=== PATIENT | male | born 1960 | race Caucasian/White ===

== ENCOUNTER → 2018-06-13 12:19 | Outpatient (CLI) | payer OTHER, SELFPAY ==
[2018-06-13 13:33] LABS: Absolute Lymphocyte Count 2.73 X10^3/ul (0.83-4.51); Absolute Neutrophil Count 3.6 X10^3/uL (2.0-7.7); Basophil# 0.02 X10^3/uL; Basophil% 0.3 % (0-1); Eosinophil# 0.26 X10^3/uL; Eosinophils% 3.7 % (0-5); Hematocrit 43.1 % (40-54); Hemoglobin 14.8 g/dl (13.0-16.5); Lymphocyte # 2.73 X10^3/ul (4.0); Lymphocyte % 38.3 % (19-41); Mean Corp Hgb Conc 34.3 g/gl (32-36); Mean Corpuscular Hgb 32.8 pg (27.0-32.0); Mean Corpuscular Volume 95.6 fL (80-94); Mean Platelet Vol. 8.4 fl (6.2-12.0); Monocyte# 0.47 X10^3/uL; Monocyte% 6.6 % (0-10); Neutrophil # 3.63 X10^3/uL (2.7-7.7); POSITIVE COUNT NO; POSITIVE DIFFERENTIAL NO; POSITIVE MORPHOLOGY NO; Platelet Count 398 K/mm3 (150-450); RBC Distribution Width CV 14.3 % (11.6-14.6); RBC Distribution Width SD 50.5 fl (35.1-43.9); Red Blood Count 4.51 M/mm3 (4.6-6.2); White Blood Count 7.1 K/mm3 (4.4-11.0)
[2018-06-13 13:58] LABS: ALB/GLOB Ratio 1.2 RATIO (0.9-2.4); AST(SGOT) 15 U/L (15-37); Alanine Aminotransfer ALT/SGPT 28 U/L (16-61); Albumin, Serum 3.8 g/dL (3.2-5.0); Alkaline Phosphatase 54 U/L (45-117); Anion Gap 9 (5-15); BUN 14 mg/dL (7-18); BUN/Creat Ratio 16.8 RATIO (10-20); Calcium,Total 8.4 mg/dL (8.5-10.1); Chloride 107 mmol/L (98-107); Cholesterol 215 mg/dL (200); Creatinine, Serum 0.84 mg/dL (0.70-1.30); EST Glomerular Filtration Rate 100 mL/min (>60); Est Glom Filt Rate - Afr Amer 121 mL/min (>60); Globulin 3.3 g/dL (2.2-4.2); Glucose 90 mg/dL (74-106); High Density Lipoprotein 67 mg/dL; PSA,Total - Annual Screen 2.04 ng/mL (0.00-4.00); Potassium 3.9 mmol/L (3.5-5.1); Protein, Total 7.1 g/dL (6.4-8.2); Sodium Level 141 mmol/L (136-145); Triglycerides 76 mg/dL; Very Low Density Lipoprotein 15 mg/dL (5-40)
== END ==
PROVIDERS: Family Provider Family Medicine; PCP Family Medicine; Visit Provider Family Medicine
DX: E78.5 Hyperlipidemia, unspecified (principal); Z12.5 Encounter for screening for malignant neoplasm of prostate; Z72.0 Tobacco use; Z12.2 Encounter for screening for malignant neoplasm of respiratory organs
CPT/HCPCS: 36415; 80053; 80061; 84153; 85025; G0297; G0103

== ENCOUNTER 2018-08-08 06:52 | Day surgery (SDC) | payer OTHER, SELFPAY ==
--- NOTE | 2018-08-08 | COLBX_PTH ---
PATIENT: CARLOS MOULTON LOC: EN U#:[id number] AGE/SX: 57/M ROOM: RE08/08/[address]: Dr. Juliet Camacho MD : 1960 BED: DIS: 08/08/2018 SPEC #: [id number] RECD: 08/08/18 13:26 STATUS: CARLO UMA #: [id number] CHIARA: 08/08/18 00:[address]: Juliet Camacho DEPT: SURGICAL PATHOLOGY RECD BY: Kavon Gifofrd ENTERED: 08/08/18 13:26 SP TYPE: COLON BX OTHR DR: Dr. Javed Gao DO Tissues: A - Cecum, NOS B - Ileum, NOS C - Rectum, NOS D - Rectum, NOS Procedures: Surgery Specimen Level IV HEADER OPERATION: Colonoscopy (MAC) PRE-OP DIAGNOSIS: Screening TISSUE SUBMITTED: A - Cecal polyp biopsy, B - Polyp near ileocecal valve biopsy, C - Proximal rectal polyp, D - Rectal polyp biopsy MICROSCOPIC DIAGNOSIS A. Cecal polyp, biopsy: Tubular adenoma. B. Polyp near ileocecal valve, biopsy: Fragments of tubular adenoma. C. Proximal rectal polyp, biopsy: Fragments of tubular adenoma. D. Rectal polyp, biopsy: A fragment of colonic mucosa with focal minimal hyperplastic changes. EDY:loreto 08/09/18 MICROSCOPIC DESCRIPTION Slides are reviewed. GROSS DESCRIPTION A - Received in fixative is one container labeled with the patient's name and designated cecal polyp biopsy. The specimen consists of one irregular fragment of light de la cruz soft tissue that measures 0.3 x 0.3 x 0.1 cm. The specimen is totally submitted in one cassette. B - Received in fixative is one container labeled with the patient's name and designated polyp near ileocecal valve biopsy. The specimen consists of multiple irregular fragments of light de la cruz soft tissue that in aggregate measure 2 x 1 x 0.1 cm. The specimen is totally submitted in one cassette. C - Received in fixative is one container labeled with the patient's name and designated proximal rectal polyp. The specimen consists of two pieces of de la cruz-pink polyp each measuring 0.4 x 0.4 x 0.3 cm. The specimen is totally submitted in one cassette. D - Received in fixative is one container labeled with the patient's name and designated rectal polyp biopsy. The specimen consists of one irregular fragment of light de la cruz soft tissue that measures 0.5 x 0.3 x 0.1 cm. The specimen is totally submitted in one cassette. / EDY:loreto 08/08/18 TC:1 CPT: 13481 x4
[2018-08-08 07:17] VITALS: BP 129/79; PULSE 73; RESP 16; TEMP 37.6; O2SAT 97; BMI 21.5
--- NOTE | 2018-08-08 07:38 | H&P.OPEN ---
Past Medical/Surgical History - Planned Operation Planned Operative Procedure/s: Screening colonoscopy Date of Operative Procedure: 08/08/18 Permit Signed: No S.O.S: No Is This Patient Having a Total Joint: No - Previous Hospitalizations/Surgeries HX Hospitalizations: Yes HX of Surgeries: colonoscopy. hernia repair as a child Any Problems With Anesthesia: No You/Your Family Experience Fever (Hyperthermia) With Anes: No Cholinesterase deficiency: No - Cardiovascular Hx Chest Pain within Last 2 months: No Hx of Irregular Heartbeat and/or Afib: No Hx Heart Attack: No Hx Congestive Heart Failure: No Hx Rheumatic Fever: No Hx Hypertension: No Hx Internal Defibrillator: No Hx Pacemaker: No Hx Cardiac Catheterization: No Hx Cardiac Surgery/Stents/Etc.: No Hx Stress Test: No HX Edema: No Hx Pain in Legs when Walking/Leg Cramps: No - Respiratory Chronic Cough: No HX of Shortness of Breath: No Hoarseness: No Hx Chronic Obstructive Pulmonary Disease (COPD): No Hx Asthma: No Hx Emphysema: No Hx Sleep Apnea: No Hx Oxygen Use at Home: No Hx Respiratory Tract Infection/Cold (presently): No Do You Snore Loudly (louder than talking or can be heard): Yes Do You Often Feel Tired/ Fatigued/ Sleepy Dring Daytime?: No Has Anyone Observed You Stop Breathing During Sleep?: No Result (for STOP score): Negative Hx Smoking: Yes - 1ppd x 38yrs Smoking Status: Current every day smoker - Gastrointestinal Hx Gastroesophageal Reflux: No Hx Gastrointestinal Disorders: No Hx Gastrointestinal Bleed: No Hx Ulcer: No Hx Hiatal Hernia: No Difficulty Chewing/Swallowing: No Recent Onset of Swallowing Problems: No Special diet followed at home: Yes - low salt/ no bread Hx Unplanned Weight Loss of 20#: No HX Unplanned Weight Gain of 20#: No - Neurological Hx Seizures: No HX Syncope/Blackout Spells/Unconsciousness: No Hx CVA/Stroke: No Hx Transient Ischemic Attacks (TIA): No Hx Multiple Sclerosis: No Hx Parkinson's Disease: No Hx Head/Neck Injury: No Hx Headaches: No Hx Back Injury/Pain: Yes Recent Onset of Speech Difficulty: No Restless Legs: No Does patient have nerve stimulator: Yes - TENS - Blood Disorder Hx Leukemia: No Bleeding Tendencies: Yes - on aspirin Hx Deep Vein Thrombosis: No Hx High Cholesterol: Yes - is normal now Blood Transmitted Disease: No Hx Hepatitis: No Hx Cirrhosis: No Hx Anemia: No Hx Blood Disorders: No - Genitourinary Hx Renal Disease: No - Musculoskeletal Hx Arthritis: No Hx Rheumatoid Arthritis: No Hx Gout: No Recent Onset of an Orthopedic Problem: No - Endocrine Hx Diabetes: No Thyroid Disease: No Hx Steroid Therapy: No - Psycho/Social Hx Substance Use: No Hx Alcohol Use: No Hx Anxiety: Yes Hx Depression: No Mental Illness: No Hx Dementia: No - Miscellaneous Hx Cancer: No Recent Exposure to Contagious Disease: No Active MRSA: No Hx of C-Diff: No Any Loose Teeth: No - dentures Additional information pertinent to anesthesia:: none Allergies No Known Allergies Allergy (Verified 08/03/18 16:26) - Discharge Is Pt Admitted From a Assisted, or a Halfway: No Who Depends On You At Home: lives with Who Could Help: Special Equipment Used at Home: none After D/C, Where Do you Plan to Go: Return Home - Physical Exam General: Alert, Oriented x3, Cooperative, No apparent distress HEENT: Atraumatic Lungs: Normal air movement Cardiovascular: Regular rate, Regular Rhythm Abdomen: Soft, Non Tender - No peritoneal signs, Non-Distended Extremities: No clubbing, No cyanosis, No edema Neurological: Cranial nerves II-XII grossly intact Psych/Mental Status: Normal Affect Vital Signs Temp Pulse Resp BP Pulse Ox 99.6 F H 73 16 129/79 H 97 08/08/18 07:17 08/08/18 07:17 08/08/18 07:17 08/08/18 07:17 08/08/18 07:17 Oxygen Delivery Method Room Air Weight: 150 lb 5.684 oz Body Mass Index (BMI) 21.5 Assessment/Plan 57-year-old male here for a screening colonoscopy, denies family history of colon cancer, denies any chronic abdominal pain, did have a previous colonoscopy about 22 years ago due to abdominal pain which turned out to be ulcers, daily bowel movements denies blood Surgery Risks - Colonoscopy I discussed with the patient the risks of the procedure: Yes Risks Include but are not Limited To: Risks include but are not limited to: Bleeding, perforation requiring further surgery, inability to complete colonoscopy requiring barium enema. Patient no further questions.
[2018-08-08 08:45] VITALS: BP 112/73; BP 129/79; PULSE 52; RESP 16; TEMP 36.3; O2SAT 100
[2018-08-08 08:50] VITALS: BP 128/80; BP 129/79; PULSE 54; RESP 16
--- NOTE | 2018-08-08 08:52 | OP.ENDO_ITS ---
Patient Name: Walt Robles Procedure Date: 08/08/2018 7:46 AM Date of : 1960 Age: 57 Procedure: Colonoscopy Indications: Screening for colorectal malignant neoplasm Providers: Juliet Camacho MD Medicines: Monitored Anesthesia Care Patient Profile: Last Colonoscopy: more than 10 years ago. Complications: No immediate complications. Procedure: Pre-Anesthesia Assessment: - Prior to the procedure, a History and Physical was performed, and patient medications and allergies were reviewed. The patient's tolerance of previous anesthesia was also reviewed. The risks and benefits of the procedure and the sedation options and risks were discussed with the patient. All questions were answered, and informed consent was obtained. Prior Anticoagulants: The patient has taken aspirin, last dose was 5 days prior to procedure. ASA Grade Assessment: II - A patient with mild systemic disease. After reviewing the risks and benefits, the patient was deemed in satisfactory condition to undergo the procedure. After I obtained informed consent, the scope was passed under direct vision. Throughout the procedure, the patient's blood pressure, pulse, and oxygen saturations were monitored continuously. The pediatric colonoscope was introduced through the anus and advanced to the cecum, identified by the appendiceal orifice, ileocecal valve and palpation. The colonoscopy was performed without difficulty. The patient tolerated the procedure well. The quality of the bowel preparation was good. Scope In: 7:55:56 AM Scope Withdrawal Time 0 hours 25 minutes 34 seconds Scope Out: 8:40:13 AM Total Procedure Duration Time 0 hours 44 minutes 17 seconds Findings: Hemorrhoids were found on perianal exam. A 5 mm polyp was found in the rectum. The polyp was semi-pedunculated. The polyp was removed with a hot snare. Resection and retrieval were complete. Three sessile polyps were found in the rectum (benign-appearing lesion), cecum and near ileocecal valve. The one near the ileocecal valve was removed piecemeal with forceps. The polyps were 3 to 6 mm in size. These polyps were removed with a cold biopsy forceps. Resection and retrieval were complete. External and internal hemorrhoids were found during retroflexion. The hemorrhoids were Grade I (internal hemorrhoids that do not prolapse). Multiple medium-mouthed diverticula were found in the sigmoid colon, descending colon and transverse colon. Impression: - Hemorrhoids found on perianal exam. - One 5 mm polyp in the rectum, removed with a hot snare. Resected and retrieved. - Three benign appearing 3 to 6 mm polyps in the rectum, in the cecum and near the ileocecal valve (piecemeal), removed with a cold biopsy forceps. Resected and retrieved. - External and internal hemorrhoids. Recommendation: - Discharge patient to home. - High fiber diet. - Continue present medications, hold aspirin for today. - Repeat colonoscopy is recommended for surveillance after piecemeal polypectomy. The colonoscopy date will be determined after pathology results from today's exam become available for review. Procedure Code(s): --- Professional --- 98991, Colonoscopy, flexible; with removal of tumor(s), polyp(s), or other lesion(s) by snare technique 75408, 59, Colonoscopy, flexible; with biopsy, single or multiple Diagnosis Code(s): --- Professional --- Z12.11, Encounter for screening for malignant neoplasm of colon K64.0, First degree hemorrhoids K62.1, Rectal polyp D12.0, Benign neoplasm of cecum CPT copyright 2017 [employer] [place] [employer]. All rights reserved. The codes documented in this report are preliminary and upon mergers and acquisitions consultant review may be revised to meet current compliance requirements. MD Juliet Pendleton MD 08/08/2018 8:51:43 AM This report has been signed electronically. Number of Addenda: 0 Note Initiated On: 08/08/2018 7:46 AM
[2018-08-08 08:55] VITALS: BP 129/79; BP 160/73; PULSE 54; RESP 16; O2SAT 100
[2018-08-08 09:01] VITALS: BP 129/79; BP 133/87; PULSE 46; RESP 16; TEMP 36.4; O2SAT 100
[2018-08-08 09:25] VITALS: BP 129/79
== END 2018-08-08 09:37 | disposition home or self-care (01) ==
LOC: EN 06:53 → AC 06:54
PROVIDERS: Family Provider Family Medicine; PCP Family Medicine; Referring Provider Surgery; Visit Provider Surgery
PROC: 0DJD8ZZ Inspection of Lower Intestinal Tract, Via Natural or Artificial Opening Endoscopic (ICD-10-PCS; CPT 45378; principal; 2018-08-08 07:55)
DX: Z12.11 Encounter for screening for malignant neoplasm of colon (principal); D12.0 Benign neoplasm of cecum; D12.8 Benign neoplasm of rectum; K62.1 Rectal polyp; K64.0 First degree hemorrhoids; K64.4 Residual hemorrhoidal skin tags; K57.30 Diverticulosis of large intestine without perforation or abscess without bleeding; F17.200 Nicotine dependence, unspecified, uncomplicated
CPT/HCPCS: 45380; 45385; 88305; J7120

== ENCOUNTER 2021-05-23 11:52 | Emergency (ER) | payer OTHER, SELFPAY ==
[2021-05-23 11:53] VITALS: BP 134/81; PULSE 85; RESP 16; TEMP 36.7; O2SAT 96; BMI 22.7
--- NOTE | 2021-05-23 12:37 | RAD_ITS ---
STUDY: X-RAY - RIGHT HAND, ATTENTION 1 FINGER REASON FOR EXAM: Male, 60 years old. Thumb inj during fall TECHNIQUE: 3 view(s) of the finger were obtained. COMPARISON: None. FINDINGS: Normal metacarpal head. Lateral subluxation of the first metacarpophalangeal joint. Normal proximal phalanx. Normal middle phalanx. Normal distal phalanx. Normal proximal interphalangeal joint. Normal distal interphalangeal joint. RAD/Finger(s) Min 2 Views IMPRESSION: Lateral subluxation of the first metacarpophalangeal joint. No definite fracture. Electronically Signed: Donnie David MD at 13:33 EDT Tel , Service support ,
--- NOTE | 2021-05-23 12:46 | EX.ED.UPPERE ---
HPI History of Present Illness Chief Complaint: Upper Extremity Injury Informant: patient Narrative Narrative: Patient is a 60-year-old previously healthy male who presents to the emerge department for right thumb injury. He states that he tripped while trying to power wash his deck. He has had difficulty moving the thumb since then. He denies hitting his head or losing consciousness. No other injury noted. He is on a baby aspirin daily but no other blood thinning medications. Patient denies loss of sensation. He has not taken anything for it at this point. He describes the pain as mild mostly over the MCP. PFSH PFSH Home Medications Urinozinc 2 tab PO DAILY 08/03/18 [History Last Taken Unknown] aspirin [Adult Aspirin] 81 mg PO DAILY 08/03/18 [History Last Taken Unknown] glucosamine [id number]-[id number] 1 ea PO DAILY 08/03/18 [History Last Taken Unknown] multivitamin with folic acid [Thera] 1 tab PO DAILY 08/03/18 [History Last Taken Unknown] Allergy/AdvReac Type Severity Reaction Status Date / Time No Known Allergies Allergy Verified 05/23/21 11:52 Social History Smoking Status: Current every day smoker tobacco type: cigarettes ROS ROS ED Constitutional Constitutional ED: Denies chills or fever(s) Eyes Eyes: Denies change in vision ENT ENT ED: Denies epistaxis Cardiovascular Cardiovascular: Denies chest pain Respiratory/Chest Respiratory/Chest: Denies cough or dyspnea Gastrointestinal Gastrointestinal: Denies abdominal pain Musculoskeletal Musculoskeletal: Denies back pain or neck pain Integumentary Reports Abrasions; Denies rash Neurologic Neurologic: Denies dizziness, headache(s) or weakness EXAM Physical Exam Const Vital Signs: 05/23/21 11:53 Temperature 98.0 F Temperature Source Temporal Pulse Rate 85 Respiratory Rate 16 Blood Pressure 134/81 H Blood Pressure Mean 98 Pulse Ox 96 Oxygen Delivery Method Room Air Positive well nourished and well developed General Appearance ED: well developed and NAD HEENT Reports normocephalic, head/scalp atraumatic and moist mucous membranes Eyes PERRL and EOMs intact bilaterally Neck supple Resp normal respiratory effort Cardio regular rate Back/Spine Back/Spine Narrative: Full range of motion without pain. Extremity Extremity Narrative: Right thumb is neurovascular intact. Brisk capillary refill. 2+ radial pulse. Patient has difficulty moving the thumb. No other pain elsewhere. No snuffbox tenderness. Neuro CN's II-XII intact bilaterally and no sensory deficits noted Sensorium / Orientation: alert Motor Exam: strength 5/5 throughout Psych mental status grossly normal Skin Skin Narrative: Superficial abrasions to left upper extremity. No active bleeding. MDM MDM MDM Narrative Medical decision making narrative: Patient presents to the emerge department for right thumb injury after a fall. On arrival to the ED vital signs within normal limits. Will check x-ray of the right thumb. Patient declining anything for pain at this time. Patient's x-ray did show a subluxation of the thumb. Patient gave verbal consent for reduction of this. The area was cleaned with alcohol and a digital block was performed with 5 cc of 1% lidocaine without epinephrine. Using traction/countertraction the thumb was reduced and he tolerated this well. Neurovascular intact post reduction. He did gain good range of motion. The thumb was splinted. He is given orthopedic hand surgery referral for follow-up. Return precautions are reviewed with him. He understands and is agreeable to plan. Discharged home in stable condition. All questions were answered. Radiography Diagnostic Testing: Thumb x-ray interpreted by myself. No obvious fracture but there is subluxation at the MCP joint. Agree with radiologist interpretation. Discharge Plan Triage Chief Complaint: Upper Extremity Injury ED Provider: Papa Mancini Dx/Rx/DC Orders Clinical Impression: Subluxation of right thumb Instructions: ED Joint Dislocation Prescriptions: No Action aspirin [Adult Aspirin Regimen] 81 MG Tablet. 81 mg PO DAILY RF: 0 multivitamin with folic acid [Thera] 1 TABLET tablet 1 tab PO DAILY RF: 0 glucosamine [id number] 1 EACH tablet 1 ea PO DAILY RF: 0 Urinozinc 2 tab PO DAILY RF: 0 Primary Care Provider: Javed Gao Referrals: [facility] [Provider Group] - 3-5 Days Javed Gao DO [Primary Care Provider] - Disposition Disposition: Home, Self Care Discharge Date/Time: 05/23/21 15:00
[2021-05-23] MEDS: Lidocaine 1% (20 ml mdv) 20 ML Vial 5 ML INFILT (14:14)
== END 2021-05-23 15:00 | disposition home or self-care (01) ==
PROVIDERS: Emergency Provider Emergency Medicine; PCP Family Medicine
DX: S63.111A Subluxation of metacarpophalangeal joint of right thumb, initial encounter (principal); W01.0XXA Fall on same level from slipping, tripping and stumbling without subsequent striking against object, initial encounter; W22.8XXA Striking against or struck by other objects, initial encounter; Y93.89 Activity, other specified; Y92.008 Other place in unspecified non-institutional (private) residence as the place of occurrence of the external cause; Y99.9 Unspecified external cause status; F17.210 Nicotine dependence, cigarettes, uncomplicated; Z79.82 Long term (current) use of aspirin; Z79.899 Other long term (current) drug therapy
CPT/HCPCS: 26700; 73140; 99282

== ENCOUNTER → 2021-08-20 09:18 | Outpatient (CLI) | payer OTHER, SELFPAY ==
[2021-08-20 09:55] LABS: Absolute Lymphocyte Count 2.29 X10^3/uL (0.83-4.51); Basophil# 0.05 X10^3/uL; Eosinophil# 0.33 X10^3/uL; Eosinophils% 6.4 % (0-5); Hematocrit 47.1 % (40-54); Lymphocyte # 2.29 X10^3/ul (0.83-4.51); Lymphocyte % 44.7 % (19-41); Mean Corpuscular Hgb 32.1 pg (27.0-32.0); Mean Corpuscular Volume 94.6 fL (80-94); Mean Platelet Vol. 8.4 fl (6.2-12.0); Monocyte# 0.43 X10^3/uL; Monocyte% 8.4 % (0-10); NRBC Flagged by Analyzer 0 % (0-5); Neutrophil # 2.01 X10^3/uL (2.7-7.7); Neutrophil % 39.3 % (47-70); Platelet Count 385 K/mm3 (150-450); RBC Distribution Width CV 14.6 % (11.6-14.6); RBC Distribution Width SD 50.4 fl (35.1-43.9); Red Blood Count 4.98 M/mm3 (4.6-6.2); White Blood Count 5.1 K/mm3 (4.4-11.0)
[2021-08-20 10:52] LABS: AST(SGOT) 21 U/L (15-37); Alanine Aminotransfer ALT/SGPT 29 U/L (16-61); Albumin, Serum 3.6 g/dL (3.2-5.0); Alkaline Phosphatase 66 U/L (45-117); Anion Gap 6 (5-15); BUN 9 mg/dL (7-18); BUN/Creat Ratio 11.3 RATIO (10-20); Calcium,Total 8.7 mg/dL (8.5-10.1); Chloride 106 mmol/L (98-107); Cholesterol 228 mg/dL (200); EST Glomerular Filtration Rate 105 mL/min (>60); Est Glom Filt Rate - Afr Amer 127 mL/min (>60); Globulin 3.7 g/dL (2.2-4.2); Glucose 127 mg/dL (74-106); High Density Lipoprotein 74 mg/dL; PSA,Total - Annual Screen 1.27 ng/mL (0.00-4.00); Potassium 4.1 mmol/L (3.5-5.1); Protein, Total 7.3 g/dL (6.4-8.2); Sodium Level 139 mmol/L (136-145); Triglycerides 63 mg/dL; Very Low Density Lipoprotein 13 mg/dL (5-40)
[2021-08-20 16:56] LABS: Hemoglobin A1c 4.7 % (3.8-5.6)
== END ==
PROVIDERS: PCP Family Medicine; Referring Provider Family Medicine; Visit Provider Family Medicine
DX: Z00.00 Encounter for general adult medical examination without abnormal findings (principal); Z12.5 Encounter for screening for malignant neoplasm of prostate
CPT/HCPCS: 36415; 80053; 80061; 83036; 84153; 85025; G0103

== ENCOUNTER 2021-09-10 06:31 | Day surgery (SDC) | payer OTHER, SELFPAY ==
--- NOTE | 2021-09-10 | COLBX_PTH ---
PATIENT: CARLOS MOULTON LOC: EN U#:[id number] AGE/SX: 61/M ROOM: RE09/10/[address]: Dr. Luis Chavez MD : 1960 BED: DIS: 09/10/2021 SPEC #: [id number] RECD: 09/10/21 12:31 STATUS: CARLO UMA #: [id number] CHIARA: 09/10/21 00:[address]: Luis Chavez DEPT: SURGICAL PATHOLOGY RECD BY: Kavon Gifford ENTERED: 09/10/21 12:32 SP TYPE: COLON BX OTHR DR: Dr. Javed Gao, Tissues: Cecum, NOS Procedures: Surgery Specimen Level IV HEADER OPERATION: Colonoscopy ? open access (MAC) PRE-OP DIAGNOSIS: History of colon polyps TISSUE SUBMITTED: Biopsy of cecum polyp MICROSCOPIC DIAGNOSIS Cecal polyp, biopsy: Fragments of tubular adenoma. AM:loreto 09/13/2021 MICROSCOPIC DESCRIPTION Slides are reviewed. GROSS DESCRIPTION Received in fixative is one container labeled with the patient's name and designated biopsy of cecum polyp. The specimen consists of one irregular fragment of light de la cruz soft tissue that measures 0.5 x 0.3 x 0.1 cm. The specimen is totally submitted in one cassette. / SJ:rg 09/10/21 TC:5 CPT: 06384
[2021-09-10 06:50] VITALS: BP 127/72; PULSE 70; RESP 18; TEMP 36.8; O2SAT 96; BMI 20.9
[2021-09-10] MEDS: Lactated Ringers 1,000 ML 15 ML IV (06:50)
--- NOTE | 2021-09-10 07:29 | H&P.OPEN ---
HPI - General HPI Narrative CARLOS MOULTON, is a 61 M who presents for surveillance colonoscopy. Patient has last colonoscopy 3 years ago and multiple labs were identified and he was recommended have a repeat in 3 years. Denies any blood in his stool or abdominal pain. He denies any family history of colon cancer. [facility] Medical History (Updated 09/10/21 @ 07:[address] Luis Chavez MD) Easy bruising Smoker Wears dentures Wears glasses Home Medications Urinozinc 2 tab PO DAILY 08/03/18 [History Last Taken Unknown] aspirin [Adult Aspirin] 81 mg PO DAILY 08/03/18 [History Last Taken 09/05/21] glucosamine EUe-amq-tqhpvoskak 1 ea PO DAILY 08/03/18 [History Last Taken Unknown] multivitamin with folic acid [Thera] 1 tab PO DAILY 08/03/18 [History Last Taken Unknown] garlic 2,000 mg PO DAILY 09/08/21 [History Last Taken Unknown] omega-3 fatty acids [Fish Oil] 1,000 mg PO DAILY 09/08/21 [History Last Taken Unknown] Allergy/AdvReac Type Severity Reaction Status Date / Time No Known Allergies Allergy Verified 09/08/21 09:56 Surgical History (Updated 09/08/21 @ 10:02 by Laila Pickett) Hx of colonoscopy Hx of shoulder replacement Social History Smoking Status: Current every day smoker tobacco type: cigarettes Past Medical/Surgical History Planned Operation Planned Operative Procedure/s: Colonscopy OA S.O.S: No Previous Hospitalizations/Surgeries HX Hospitalizations: No HX of Surgeries: colonoscopy hernia repair as a child Any Problems With Anesthesia: No You/Your Family Experience Fever (Hyperthermia) With Anes: No Cholinesterase deficiency: No Cardiovascular Hx Chest Pain within Last 2 months: No Hx of Irregular Heartbeat and/or Afib: No Hx Heart Attack: No Hx Congestive Heart Failure: No Hx Rheumatic Fever: No Hx Hypertension: No Hx Internal Defibrillator: No Hx Pacemaker: No Hx Cardiac Catheterization: No Hx Cardiac Surgery/Stents/Etc.: No Hx Stress Test: No Hx Pain in Legs when Walking/Leg Cramps: No Respiratory Chronic Cough: No HX of Shortness of Breath: No Hoarseness: No Hx Chronic Obstructive Pulmonary Disease (COPD): No Hx Asthma: No Hx Emphysema: No Hx Sleep Apnea: No Hx Respiratory Tract Infection/Cold (presently): No Do You Snore Loudly (louder than talking or can be heard): No Do You Often Feel Tired/ Fatigued/ Sleepy Dring Daytime?: No Has Anyone Observed You Stop Breathing During Sleep?: No Result (for STOP score): Negative Hx Smoking: Yes (1ppd x 38yrs) Smoking Status: Current every day smoker Gastrointestinal Hx Gastroesophageal Reflux: No Hx Gastrointestinal Disorders: No Hx Gastrointestinal Bleed: No Hx Ulcer: No Hx Hiatal Hernia: No Difficulty Chewing/Swallowing: No Special diet followed at home: Yes (low salt/ no bread) Hx Unplanned Weight Loss of 20#: No HX Unplanned Weight Gain of 20#: No Neurological Hx Seizures: No HX Syncope/Blackout Spells/Unconsciousness: No Hx Transient Ischemic Attacks (TIA): No Hx Multiple Sclerosis: No Hx Parkinson's Disease: No Hx Head/Neck Injury: No Hx Headaches: No Hx Back Injury/Pain: Yes Recent Onset of Speech Difficulty: No Restless Legs: No Does patient have nerve stimulator: No Blood Disorder Hx Leukemia: No Bleeding Tendencies: Yes (on aspirin) Hx Deep Vein Thrombosis: No Hx High Cholesterol: Yes (is normal now) Blood Transmitted Disease: No Hx Hepatitis: No Hx Cirrhosis: No Hx Anemia: No Hx Blood Disorders: No Genitourinary Hx Renal Disease: No Musculoskeletal Hx Arthritis: No Hx Rheumatoid Arthritis: No Hx Gout: No Recent Onset of an Orthopedic Problem: No Endocrine Hx Diabetes: No Thyroid Disease: No Hx Steroid Therapy: No Psycho/Social Hx Substance Use: No Hx Alcohol Use: No Hx Anxiety: Yes Hx Depression: No Mental Illness: No Hx Dementia: No Miscellaneous Hx Cancer: No Recent Exposure to Contagious Disease: No Hx of C-Diff: No Any Loose Teeth: No (dentures) Allergies No Known Allergies Allergy (Verified 09/08/21 09:56) Discharge Is Pt Admitted From a Detention, or a Penitentiary: No Who Could Help: After D/C, Where Do you Plan to Go: Return Home From the [facility] History Number of Risk Factors: 1 Vital Signs Vital Signs Vital Signs: 09/10/21 06:50 Temperature 98.2 F Temperature Source Temporal Pulse Rate 70 Respiratory Rate 18 Respiratory Pattern Normal Blood Pressure 127/72 H Blood Pressure Mean 90 Blood Pressure Source Monitor Blood Pressure Position Sitting Blood Pressure Location Left Arm Pulse Ox 96 Oxygen Delivery Method Room Air Weight Weight: 150 lb 2.157 oz Body Mass Index (BMI) 20.9 Physical Exam Const alert and oriented x3 Resp normal respiratory effort and normal air movement Cardio regular rate and regular rhythm GI soft to palpation, non-tender and non-distended Assessment & Plan Assessment/Plan (1) History of colon polyps: PLAN: I explained endoscopy in detail to the patient. I explained the risks including but not limited to stroke or heart attack with anesthesia, perforation of the GI tract, bleeding, infection. I explained that any of these could necessitate further emergency surgery. The patient understands and all questions were answered sufficiently. The patient wishes to proceed with procedure. Luis Chavez MD Pager: [facility] [address] [place] [address], [address] [place] [phone] Office: Surgery Risks - Colonoscopy Risks Include but are not Limited To: Risks include but are not limited to: Bleeding, perforation requiring further surgery, inability to complete colonoscopy requiring barium enema.
[2021-09-10 08:16] VITALS: BP 101/57; BP 127/72; PULSE 72; RESP 16; TEMP 36.4; O2SAT 98
--- NOTE | 2021-09-10 08:16 | OP.COLON_ITS ---
Patient Name: Walt Robles Procedure Date: 09/10/2021 7:45 AM Date of : 1960 Age: 61 Procedure: Colonoscopy Indications: Surveillance: Personal history of colonic polyps (unknown histology) on last colonoscopy 3 years ago Providers: Luis Chavez MD Medicines: Monitored Anesthesia Care Patient Profile: This is a 61 year old male. Refer to note in patient chart for documentation of history and physical. Last Colonoscopy: 3 years ago. Complications: No immediate complications. Procedure: Pre-Anesthesia Assessment: - Prior to the procedure, a History and Physical was performed, and patient medications and allergies were reviewed. The patient's tolerance of previous anesthesia was also reviewed. The risks and benefits of the procedure and the sedation options and risks were discussed with the patient. All questions were answered, and informed consent was obtained. Prior Anticoagulants: The patient has taken no previous anticoagulant or antiplatelet agents. After reviewing the risks and benefits, the patient was deemed in satisfactory condition to undergo the procedure. After I obtained informed consent, the scope was passed under direct vision. Throughout the procedure, the patient's blood pressure, pulse, and oxygen saturations were monitored continuously. The Colonoscope was introduced through the anus and advanced to the cecum, identified by appendiceal orifice and ileocecal valve. The colonoscopy was performed without difficulty. The patient tolerated the procedure well. The quality of the bowel preparation was good. Scope In: 7:54:19 AM Scope Withdrawal Time 0 hours 8 minutes 38 seconds Scope Out: 8:11:59 AM Total Procedure Duration Time 0 hours 17 minutes 40 seconds Findings: A small polyp was found in the cecum. The polyp was removed with a cold biopsy forceps. Resection and retrieval were complete. A few small-mouthed diverticula were found in the sigmoid colon. The exam was otherwise without abnormality on direct and retroflexion views. Impression: - One small polyp in the cecum, removed with a cold biopsy forceps. Resected and retrieved. - Diverticulosis in the sigmoid colon. - The examination was otherwise normal on direct and retroflexion views. Recommendation: - Discharge patient to home. - Resume previous diet. - Continue present medications. - Await pathology results. - Repeat colonoscopy in 5 years for surveillance. Procedure Code(s): --- Professional --- 23638, Colonoscopy, flexible; with biopsy, single or multiple Diagnosis Code(s): --- Professional --- Z86.010, Personal history of colonic polyps D12.0, Benign neoplasm of cecum K57.30, Diverticulosis of large intestine without perforation or abscess without bleeding CPT copyright 2017 [employer]. All rights reserved. The codes documented in this report are preliminary and upon power marketer review may be revised to meet current compliance requirements. Luis Chavez MD 09/10/2021 8:16:11 AM This report has been signed electronically. Number of Addenda: 0 Note Initiated On: 09/10/2021 7:45 AM
--- NOTE | 2021-09-10 08:17 | OP.CCLET_ITS ---
09/10/2021 Javed Gao [address] [place] [address] Re : Colonoscopy procedure for Walt Robles Dear Dr. Gao This procedure was performed on Friday, September 10, 2021. My impressions and recommendations are as follows: Impressions : - One small polyp in the cecum, removed with a cold biopsy forceps. Resected and retrieved. - Diverticulosis in the sigmoid colon. - The examination was otherwise normal on direct and retroflexion views. Recommendations : - Discharge patient to home. - Resume previous diet. - Continue present medications. - Await pathology results. - Repeat colonoscopy in 5 years for surveillance. My findings are described in the full procedure note, which is enclosed. If I can be of further assistance, please feel free to contact me at Doctor phone number(s): , Work: . Sincerely, Luis Chavez MD 09/10/2021 8:16:11 AM This report has been signed electronically.
[2021-09-10 08:20] VITALS: BP 107/74; BP 127/72; PULSE 72; RESP 16; O2SAT 97
[2021-09-10 08:25] VITALS: BP 108/74; BP 127/72; PULSE 58; RESP 16; O2SAT 97
[2021-09-10 08:30] VITALS: BP 115/73; BP 127/72; PULSE 61; RESP 16; TEMP 36.6; O2SAT 98
[2021-09-10 08:42] VITALS: BP 127/72
== END 2021-09-10 08:50 ==
LOC: EN 06:31 → AC 06:32
PROVIDERS: PCP Family Medicine; Referring Provider Family Medicine; Visit Provider Surgery
PROC: 0DJD8ZZ Inspection of Lower Intestinal Tract, Via Natural or Artificial Opening Endoscopic (ICD-10-PCS; CPT 45378; principal; 2021-09-10 07:25)
DX: Z12.11 Encounter for screening for malignant neoplasm of colon (principal); Z86.010 Personal history of colon polyps; K57.30 Diverticulosis of large intestine without perforation or abscess without bleeding; D12.0 Benign neoplasm of cecum; F17.210 Nicotine dependence, cigarettes, uncomplicated; Z96.619 Presence of unspecified artificial shoulder joint; Z79.82 Long term (current) use of aspirin
CPT/HCPCS: 45380; 88305; J7120; J2405

== ENCOUNTER → 2021-09-16 07:21 | Outpatient (CLI) | payer OTHER, SELFPAY ==
--- NOTE | 2021-09-16 07:25 | CT_ITS ---
STUDY: LOW DOSE CT LUNG CANCER SCREENING REASON FOR EXAM: Male, 61 years old. LUNG CA SCREENING. Patient smoked 1 pack per day for 40 years. RADIATION DOSAGE (If Supplied By Facility): CTDIvol = ( 3.02 ) mGy, DLP = ( 111.74 ) mGycm TECHNIQUE: No contrast was administered. Low dose technique was utilized (average mAS-38 and kVp 120). 1.25 mm axial source images with a slice interval of 1.25-mm were reconstructed in lung windows. 2.5 mm axial source images with a slice interval of 2.5-mm were reconstructed in lung windows. 5.0 mm axial source images with a slice interval of 5.0-mm were reconstructed in soft tissue windows. Nodule measured using lung windows on PACS and/or independent workstation with automated measurement of minimum and maximum diameter. Nodule measurement reported as average diameter rounded to the nearest whole number. Growth is defined as an increase ins size of greater than 1.5 mm. COMPARISON: Comparison is made with prior study dated 06/13/2018. NODULES: Stable 7 mm calcified granuloma in the anterior aspect of the left lower lobe. Emphysema: Mild degree of emphysematous changes. Endobronchial lesion: None Aorta: Unremarkable Coronary arteries: Coronary artery calcifications. Heart: Unremarkable Pulmonary artery: Unremarkable Mediastinal nodes: Small benign-appearing mediastinal lymph nodes. Other chest and abdominal findings: CT/Low Dose CT Lung Screening IMPRESSION: Lung-RADS category 2 - Continue annual screening with LDCT in 12 months. IMPORTANT NOTES FOR USE: ACR Lung-RADS Version 1.1 Assessment Categories Release Date: 2018 Category: Coded 0-4 bases on nodule(s) with highest degree of suspicion. Negative screen is defined as categories 1 and 2; a positive screen is defined as categories 3 and 4. Category 3 and 4A nodules that are unchanged on interval CT should be coded as category 2, and individuals returned to screening in 12 months. Category 4X: Category 3 or 4 nodules with additional imaging findings that increase the suspicion of lung cancer, such as spiculation, GGN that doubles in size in 1 year, enlarged lymph notes, etc. Category Modifiers: S (significant finding unrelated to lung cancer) Electronically Signed: Brennan Gunn MD at 9:18 EST , Service support ,
== END ==
PROVIDERS: PCP Family Medicine; Referring Provider Family Medicine; Visit Provider Family Medicine
DX: Z12.2 Encounter for screening for malignant neoplasm of respiratory organs (principal); Z72.0 Tobacco use
CPT/HCPCS: 71271

== ENCOUNTER 2024-09-01 11:00 | Inpatient (IN) | payer MEDICARE, SELFPAY ==
[2024-09-01 11:02] VITALS: BP 142/77; PULSE 94; RESP 18; TEMP 37.1; O2SAT 97; BMI 22.1
--- NOTE | 2024-09-01 11:18 | CT_ITS ---
We are attempting to reach an attending provider to discuss findings. An addendum with communication details will be sent when the communication is complete. EXAM: CT ABDOMEN AND PELVIS WITH INTRAVENOUS CONTRAST CLINICAL INDICATION: lower abdominal pain TECHNIQUE: Helically acquired images were obtained of the abdomen and pelvis with intravenous contrast. This CT exam was performed using one or more of the following dose reduction techniques: automated exposure control, adjustment of the mA and/or kV according to patient size, and/or use of iterative reconstruction technique. CONTRAST: IV 100mL [id number]-[id number] COMPARISON: CT chest, 09/16/2021 FINDINGS: LOWER THORAX: Basilar granulomas are identified. No cardiomegaly. No significant pericardial effusion. ABDOMEN: LIVER: No significant abnormality. Homogeneous. No focal mass. GALLBLADDER AND BILE DUCTS: No significant abnormality. No calcified gallstones. No gallbladder distention or wall edema. No intra- or extrahepatic biliary ductal dilation. PANCREAS: No significant abnormality. No focal cystic or solid mass. SPLEEN: No significant abnormality. Normal size without focal cystic or solid mass. ADRENALS: No significant abnormality. No nodules. KIDNEYS AND URETERS: No significant abnormality. Normal renal size and position. No hydronephrosis. STOMACH AND BOWEL: Extensive colonic diverticulosis. Wall thickening and pericolonic edema around the sigmoid colon. There is an abscess in the mid lower abdomen adjacent to the sigmoid colon measuring up to approximately 3.6 cm in maximal diameter with flocculent air and fluid and surrounding inflammatory changes. No stomach or bowel distention. PELVIS: APPENDIX: There is a normal appendix identified. BLADDER: No significant abnormality. REPRODUCTIVE: Normal as visualized. No mass. ABDOMEN and PELVIS: INTRAPERITONEAL SPACE: Inflammatory stranding within the mesentery of the lower abdomen. No ascites. No large volume pneumoperitoneum. BONES/JOINTS: No significant abnormality. No suspicious lytic or blastic abnormality. SOFT TISSUES: No significant abnormality. No discrete abdominal or pelvic wall hernia. VASCULATURE: No significant abnormality. Abdominal aorta is non-dilated. LYMPH NODES: No significant abnormality. No enlarged lymph nodes. CT/Abdomen/Pelvis W IV Cont ONLY IMPRESSION: Complicated sigmoid diverticulitis with associated pericolonic abscess and inflammatory changes. No large volume pneumoperitoneum. No bowel obstruction. Electronically Signed: Joey Lafleur, at 12:15 EST ,
--- NOTE | 2024-09-01 11:21 | EDS_ITS ---
HPI <PAOLA Fay - Last Filed: 09/01/24 12:22> History of Present Illness Chief Complaint: Abd Pain Narrative Narrative: 63-year-old male with no known past medical history presents with 3 weeks of intermittent abdominal pain. He gets a sharp cramping pain in the midline below his umbilicus that occurs daily but has no pattern or aggravating or alleviating factors. He said it is a sharp pain that lasts less than a minute. He has had slight decreased appetite but no nausea or vomiting. He normally has a BM daily but over the last 2 weeks has been constipated and was having small pellet-like stools until yesterday when he took milk of magnesia and had loose stools. He said no melena hematochezia. No urinary symptoms. He had an abdominal hernia repair in third grade; no other surgeries. He gets colonoscopies every 5 years because his father had colon cancer but he has no personal history of cancer or diverticulitis. He does smoke about a pack a day and drink beer daily. PFSH <PAOLA Fay - Last Filed: 09/01/24 12:22> PFSH Medical History Wears glasses Wears dentures Easy bruising Smoker Home Medications ?Medication ?Instructions ?Recorded ?Last Taken ?Type Urinozinc 2 tab PO DAILY prostate 08/03/18 Unknown History glucosamine HCl 500 mg-msm 83 1 ea PO DAILY supplement 08/03/18 Unknown History mg-chondroitin 400 mg tablet multivitamin with folic acid 400 1 tab PO DAILY supplement 08/03/18 Unknown History mcg tablet (Thera) garlic 2,000 mg PO DAILY 09/08/21 Unknown History omega-3 fatty acids 1,000 mg PO DAILY 09/08/21 Unknown History Allergy/AdvReac Type Severity Reaction Status Date / Time No Known Allergies Allergy Verified 09/01/24 11:01 Surgical History Hx of shoulder replacement Hx of colonoscopy Social History Smoking Status: Current every day smoker tobacco type: cigarettes ROS <PAOLA Fay - Last Filed: 09/01/24 12:22> ROS ED ROS Narrative Constitutional: Negative for fever, chills, malaise. CVS: Negative for chest pain, syncope. Respiratory: Negative for shortness of breath, cough. GI: Positive for abdominal pain, constipation. Negative for nausea, vomiting, diarrhea, melena, hematochezia. : Negative for dysuria, hematuria or frequency. EXAM <PAOLA Fay - Last Filed: 09/01/24 12:22> Physical Exam Narrative Exam Narrative: CONST: Patient sitting in no acute distress. EYES: Normal inspection. NECK: Normal inspection. RESP: No respiratory distress, CTAB. CVS: Regular rate and rhythm, no murmur, no gallop. ABD: Soft and nontender, no guarding or rebound, nondistended, normal bowel sounds times. SKIN: Color normal, no rash, warm, dry, intact. EXTREMITIES: Normal appearance, no pedal edema. NEURO: Alert and answering questions appropriately. PSYCH: Normal affect. Const Vital Signs: 09/01/24 11:02 Temperature 98.7 F Temperature Source Oral Pulse Rate 94 Respiratory Rate 18 Blood Pressure 142/77 H Blood Pressure Mean 98 Pulse Ox 97 Oxygen Delivery Method Room Air <Dr. Alan Mooney MD - Last Filed: 09/01/24 12:30> Physical Exam Const Vital Signs: 09/01/24 11:02 Temperature 98.7 F Temperature Source Oral Pulse Rate 94 Respiratory Rate 18 Blood Pressure 142/77 H Blood Pressure Mean 98 Pulse Ox 97 Oxygen Delivery Method Room Air MDM <PAOLA Fay - Last Filed: 09/01/24 12:22> [facility] MDM Narrative Medical decision making narrative: 63-year-old male has had 3 weeks of intermittent lower abdominal pain and constipation. He appears well and nontoxic, afebrile stable vital signs, minimal lower abdominal pain on exam without peritoneal signs. Differential includes diverticulitis, abscess, perforation, UTI or kidney stone among others. WBC is 20.3, normal electrolytes and normal renal function, lactate was added due to the elevated white count and is pending. CT shows complicated sigmoid diverticulitis with a 3 cm abscess. Patient was started on IV Zosyn and case will be discussed with the hospitalist for admission. Lab Data Attestation: I reviewed the patient's lab results. Labs: Laboratory Results - last 24 hr 09/01/24 11:29 WBC 20.3 H RBC 5.11 Hgb 14.3 Hct 42.1 MCV 82.4 MCH 28.0 MCHC 34.0 RDW Std Deviation 42.2 RDW Coeff of Celina 14.2 Plt Count 548 H MPV 8.9 Immature Gran % (Auto) 0.600 Neut % (Auto) 72.2 H Lymph % (Auto) 9.3 L [place] % (Auto) 16.4 H Eos % (Auto) 1.0 Baso % (Auto) 0.5 Absolute Neuts (auto) 14.7 H Absolute Lymphs (auto) 1.90 Nucleated RBC % 0 Sodium 137 Potassium 4.0 Chloride 104 Carbon Dioxide 27.0 Anion Gap 6 BUN 14 Creatinine 0.89 Estim Creat Clear Calc 85.38 Est GFR (MDRD) Af Amer 110 Est GFR (MDRD) Non-Af 91 BUN/Creatinine Ratio 15.7 Glucose 115 H Calcium 8.8 Radiography Diagnostic Testing: Clinical Impression(s) from Imaging Studies Abdomen/Pelvis CT 09/01/24 11:18 IMPRESSION: Complicated sigmoid diverticulitis with associated pericolonic abscess and inflammatory changes. No large volume pneumoperitoneum. No bowel obstruction. Electronically Signed: Joey Lafleur DO at 12:15 EST , <Dr. Alan Mooney MD - Last Filed: 09/01/24 12:30> MDM MDM Narrative Medical decision making narrative: 63-year-old male has had 3 weeks of intermittent lower abdominal pain and constipation. He appears well and nontoxic, afebrile stable vital signs, minimal lower abdominal pain on exam without peritoneal signs. Differential includes diverticulitis, abscess, perforation, UTI or kidney stone among others. WBC is 20.3, normal electrolytes and normal renal function, lactate was added due to the elevated white count and is pending. CT shows complicated sigmoid diverticulitis with a 3 cm abscess. Patient was started on IV Zosyn and case will be discussed with the hospitalist for admission. I have personally performed a face to face assessment of the patient and have reviewed the DIMA Note. I performed a substantive portion of the visit including all aspects of the following. My ortega findings include: History: 63-year-old male with umbilical abdominal pain for 1 to 2 weeks. No intra-abdominal surgery is a primary. When he was young boy. Exam: [(3-year-old male. Vital signs stable afebrile. HEENT exam unremarkable. Lungs clear. Heart regular rhythm. Abdomen nondistended soft mild suprapubic periumbilical tenderness. No hernia or mass. No distention. No peritoneal signs. Moving all 4 extremities. Nontender no edema. He is awake alert. present in the room.] Medical Decision Making: [CBC showed elevated white count of 20,000. His electrolytes and kidney function were unremarkable. His CAT scan showed diverticulitis with diverticular abscess about 3 cm. I discussed this with the radiologist. Patient was started on IV Zosyn. I will speak to the hospitalist about admission.] History & Record Review Discussion w/independent historian: Patient and Family Additional record(s) reviewed:: Prior inpatient record, Prior outpatient record, Prior ED visit and Prior labs Lab Data Lab results narrative: CBC is elevated at 20,300. H&H 14 and 42. Platelets 548. I will electrolytes show gap 6 normal BUN and creatinine. Glucose 115. Labs: Laboratory Results - last 24 hr 09/01/24 11:29 WBC 20.3 H RBC 5.11 Hgb 14.3 Hct 42.1 MCV 82.4 MCH 28.0 MCHC 34.0 RDW Std Deviation 42.2 RDW Coeff of Celina 14.2 Plt Count 548 H MPV 8.9 Immature Gran % (Auto) 0.600 Neut % (Auto) 72.2 H Lymph % (Auto) 9.3 L [place] % (Auto) 16.4 H Eos % (Auto) 1.0 Baso % (Auto) 0.5 Absolute Neuts (auto) 14.7 H Absolute Lymphs (auto) 1.90 Nucleated RBC % 0 Sodium 137 Potassium 4.0 Chloride 104 Carbon Dioxide 27.0 Anion Gap 6 BUN 14 Creatinine 0.89 Estim Creat Clear Calc 85.38 Est GFR (MDRD) Af Amer 110 Est GFR (MDRD) Non-Af 91 BUN/Creatinine Ratio 15.7 Glucose 115 H Calcium 8.8 Radiography Diagnostic Testing: Clinical Impression(s) from Imaging Studies Abdomen/Pelvis CT 09/01/24 11:18 IMPRESSION: Complicated sigmoid diverticulitis with associated pericolonic abscess and inflammatory changes. No large volume pneumoperitoneum. No bowel obstruction. Electronically Signed: Joey Lafleur DO at 12:15 EST , Discharge Plan Triage Chief Complaint: Abd Pain ED Midlevel Provider: Mary Summers ED Provider: Alan Mooney Dx/Rx/DC Orders Clinical Impression: Abdominal pain, Abscess of sigmoid colon due to diverticulitis, Leukocytosis Prescriptions: No Action multivitamin with folic acid [Thera] 1 TABLET tablet 1 tab PO DAILY glucosamine [id number] 1 EACH tablet 1 ea PO DAILY Urinozinc 2 tab PO DAILY garlic Capsule 2,000 mg PO DAILY Fish Oil Capsule 1,000 mg PO DAILY Primary Care Provider: Care Physician,No Primary Referrals: Javed Gao DO [Med Staff - Transportation Consultant] - Print Language: Pashto Disposition Disposition: Acute Care Hospital [facility]
[2024-09-01 11:44] LABS: Absolute Neutrophil Count 14.7 X10^3/uL (2.0-7.7); Basophil% 0.5 % (0-1); Hematocrit 42.1 % (40-54); Hemoglobin 14.3 g/dL (13.0-16.5); Lymphocyte % 9.3 % (19-41); Mean Corpuscular Volume 82.4 fL (80-94); Mean Platelet Vol. 8.9 fl (6.2-12.0); Monocyte# 3.33 X10^3/uL; Monocyte% 16.4 % (0-10); NRBC Flagged by Analyzer 0 % (0-5); Neutrophil # 14.69 X10^3/uL (2.7-7.7); Neutrophil % 72.2 % (47-70); POSITIVE DIFFERENTIAL YES; Platelet Count 548 K/mm3 (150-450); RBC Distribution Width CV 14.2 % (11.6-14.6); RBC Distribution Width SD 42.2 fl (35.1-43.9); Red Blood Count 5.11 M/mm3 (4.6-6.2); White Blood Count 20.3 K/mm3 (4.4-11.0)
[2024-09-01 11:46] LABS: Anion Gap 6 (5-15); BUN 14 mg/dL (7-18); BUN/Creat Ratio 15.7 RATIO (10-20); Calcium,Total 8.8 mg/dL (8.5-10.1); Chloride 104 mmol/L (98-107); Creatinine, Serum 0.89 mg/dL (0.70-1.30); EST Glomerular Filtration Rate 91 mL/min (>60); Est Glom Filt Rate - Afr Amer 110 mL/min (>60); Estimated Creatinine Clearance 85.38 ml/min; Glucose 115 mg/dL (74-106); Sodium Level 137 mmol/L (136-145)
[2024-09-01 11:53] LABS: Differential Indicated SCAN CRITERIA MET
--- NOTE | 2024-09-01 12:27 | PCM.HP.STD ---
HPI - General General Date of Admission: 09/01/24 Date of Service: 09/01/24 Chief Complaint: Abdominal cramps HPI Narrative CARLOS MOULTON, is a 63 M who presents who presents with abdominal cramps. Patient is in relatively good health on no chronic medications except for multivitamin. Symptoms started 2 to 3 weeks prior to his admission. Pain was located in the lower abdomen. He elected to present to the emergency department in view of increasing cramps on the day of his admission. Imaging studies obtained did show Complicated sigmoid diverticulitis with associated pericolonic abscess and inflammatory changes. No large volume pneumoperitoneum. No bowel obstruction. [facility] Medical History Wears glasses Wears dentures Easy bruising Smoker Home Medications ?Medication ?Instructions ?Recorded ?Last Taken ?Type Urinozinc 2 tab PO DAILY prostate 08/03/18 Unknown History glucosamine HCl 500 mg-msm 83 1 ea PO DAILY supplement 08/03/18 Unknown History mg-chondroitin 400 mg tablet multivitamin with folic acid 400 1 tab PO DAILY supplement 08/03/18 Unknown History mcg tablet (Thera) garlic 2,000 mg PO DAILY 09/08/21 Unknown History omega-3 fatty acids 1,000 mg PO DAILY 09/08/21 Unknown History Allergy/AdvReac Type Severity Reaction Status Date / Time No Known Allergies Allergy Verified 09/01/24 11:01 Surgical History Hx of shoulder replacement Hx of colonoscopy Social History Smoking Status: Current every day smoker tobacco type: cigarettes ROS ROS Narrative GENERAL: denies fever, chills, night sweats, weight loss, anorexia HEENT: denies headache, sinus congestion, or drainage, dysphagia RESPIRATORY: denies cough, sputum production, shortness of breath, dyspnea on exertion CARDIAC: denies chest pain, palpitations, orthopnea, PND GASTROINTESTINAL: abdominal pain, denies GENITOURINARY: denies dysuria, urgency, frequency, heamaturia EXTREMITY: denies swelling MUSCULOSKELETAL: denies current joint pain or tenderness NEUROLOGIC: denies focal numbness, weakness, tingling HEMATOLOGIC: denies easy bruising and/or hemorrhage INTEGUMENT: denies rashes PSYCHIATRIC: denies suicidal or homicidal ideation Vital Signs Vital Signs Vital Signs: 09/01/24 11:02 Temperature 98.7 F Temperature Source Oral Pulse Rate 94 Respiratory Rate 18 Blood Pressure 142/77 H Blood Pressure Mean 98 Pulse Ox 97 Oxygen Delivery Method Room Air Weight Weight: 71.985 kg Body Mass Index (BMI) 22.1 Physical Exam Narrative GENERAL: cooperative HEENT: Atraumatic; normocephalic EYES; Anicteric, Normal Conjunctiva NECK; supple, normal thyroid, RESPIRATORY: Diminished to auscultation CARDIOVASCULAR: Regular S1 S2, GI: soft, normoactive bowel sounds, : No Renal angle tenderness; EXTREMITIES: No edema, no clubbing, MUSCULOSKELETAL: no muscle wasting NEURO: Awake; no lateralizing signs. SKIN: No Rash PSYCH; Flat affect Results Lab / Micro Data 09/01/24 11:29 09/01/24 11:29 Labs: Laboratory Results - last 24 hr 09/01/24 11:29: WBC 20.3 H, RBC 5.11, Hgb 14.3, Hct 42.1, MCV 82.4, MCH 28.0, MCHC 34.0, RDW Std Deviation 42.2, RDW Coeff of Celina 14.2, Plt Count 548 H, MPV 8.9, Immature Gran % (Auto) 0.600, Neut % (Auto) 72.2 H, Lymph % (Auto) 9.3 L, [place] % (Auto) 16.4 H, Eos % (Auto) 1.0, Baso % (Auto) 0.5, Absolute Neuts (auto) 14.7 H, Absolute Lymphs (auto) 1.90, Nucleated RBC % 0, Sodium 137, Potassium 4.0, Chloride 104, Carbon Dioxide 27.0, Anion Gap 6, BUN 14, Creatinine 0.89, Estim Creat Clear Calc 85.38, Est GFR (MDRD) Af Amer 110, Est GFR (MDRD) Non-Af 91, BUN/Creatinine Ratio 15.7, Glucose 115 H, Calcium 8.8 Imaging Radiology Impression Abdomen/Pelvis CT 09/01/24 11:18 IMPRESSION: Complicated sigmoid diverticulitis with associated pericolonic abscess and inflammatory changes. No large volume pneumoperitoneum. No bowel obstruction. Electronically Signed: Joey Lafleur DO at 12:15 EST , Assessment & Plan Assessment/Plan (1) Abscess of sigmoid colon due to diverticulitis: PLAN: Plan Patient is a 63-year-old gentleman presented with abdominal pain 1. Acute complicated sigmoid diverticulitis -with associated pericolonic abscess and inflammatory changes. Patient has been admitted to regular nursing floor started on broad-spectrum antibiotic therapy with Zosyn. Response to treatment being monitored with level of his pain as well as WBC count which has been ordered daily. Consult was placed to general surgery 2. Chronic alcohol dependence ? Patient admitted to drinking 6 beers every day. Patient be placed on DT precautions. Also did order hydroxyzine as needed for anxiety 3. Tobacco dependence ? Counseled on cessation, offered nicotine patch for tobacco cravings 4. DVT prophylaxis ? Subcu heparin Advance planning; did discuss with the patient and family regarding advanced directives as well as CODE STATUS. Did explain the various scenarios involved ( FULL CODE, DNR CCA, DNR CCA with no intubation, and DNR CC and what each meant) patient elected to remain full code with CPR and intubation if warranted. Order was placed. Time spent on discussion 16 minutes. Charges/Coding Visit Charges Inpatient E&M: 53869 Init Hosp L2 Multi Select Codes Visit Charges Visit Charges: 98051 Init Hosp L2 Hospitalists' Procedures Procedures: 53083 Advncd Care Plan 30 Min
[2024-09-01] MEDS: Piperacil/Tazobactam 4.5 GM in 0.9% Normal Saline (100mL MB+) 100 ML IV (12:31)
[2024-09-01 12:32] VITALS: BP 134/76; PULSE 64; RESP 18; TEMP 36.6; O2SAT 99
[2024-09-01 12:36] LABS: Lactic Acid 0.8 mmol/L (0.4-1.9)
[2024-09-01 12:45] LABS: Platelet Estimate MOD INC (ADEQ)
[2024-09-01 13:12] LABS: Bacteria 0 SEEN /hpf (None Seen); Mucous, Urine 0 SEEN /hpf (<or=2+); Red Blood Cells-Urine 0 SEEN /hpf (0-5)
[2024-09-01 13:17] LABS: Color, Urine Yellow (Yellow); Glucose, Dipstick Normal (Normal); Ketone-Dipstick Negative (Negative); Leukocyte Esterase-Dipstick 25 /ul (Negative); Nitrite-Dipstick Negative (Negative); Occult Blood-Urine Negative /ul (Negative); Protein-Dipstick 30 mg/dl (Negative); Urine Bilirubin Dipstick Negative (Negative); Urine Clarity Clear (Clear); Urine Urobilinogen Normal (Normal)
[2024-09-01 13:23] LABS: Squamous Epithelial Cells - UA 0-5 SEEN /hpf (0-5); White Blood Cells 0-5 SEEN /hpf (0-5)
[2024-09-01 13:30] VITALS: BMI 22.3
[2024-09-01 13:33] VITALS: BP 117/76; PULSE 76; RESP 18; TEMP 36.9; O2SAT 96
[2024-09-01] MEDS: KCL 20MEQ in D5.45NS 20 MEQ/1,000 ML IV.SOLN. 100 MEQ IV (15:31)
[2024-09-01] MEDS: 0.9% Saline Lock 10 ML Syringe IV (15:32)
[2024-09-01] MEDS: Acetaminophen 500 MG Tablet 1000 MG PO ×2 (15:39→22:31)
[2024-09-01 22:19] VITALS: BP 123/74; PULSE 80; RESP 16; TEMP 37.1; O2SAT 95
[2024-09-01] MEDS: Heparin Injection (Vial) 5,000 UNIT/ML VIAL 5000 UNIT SC (22:31)
[2024-09-01] MEDS: Piperacil/Tazobactam 3.375 GM in 0.9% Normal Saline (50mL MB+) 50 ML IV (22:31)
[2024-09-01] MEDS: Dicyclomine 10 MG Capsule 20 MG PO (22:31)
[2024-09-02] MEDS: KCL 20MEQ in D5.45NS 20 MEQ/1,000 ML IV.SOLN. 100 MEQ IV ×3 (02:02→23:58)
[2024-09-02] MEDS: Ondansetron 4 MG/2 ML Vial IV (02:02)
[2024-09-02 02:17] VITALS: BP 120/78; PULSE 76; RESP 16; TEMP 36.7; O2SAT 96
[2024-09-02] MEDS: Dicyclomine 10 MG Capsule 20 MG PO (05:59)
[2024-09-02] MEDS: Acetaminophen 500 MG Tablet 1000 MG PO ×3 (05:59→20:54)
[2024-09-02] MEDS: Piperacil/Tazobactam 3.375 GM in 0.9% Normal Saline (50mL MB+) 50 ML IV ×3 (06:00→20:59)
[2024-09-02 06:55] LABS: Absolute Lymphocyte Count 1.64 X10^3/uL (0.83-4.51); Absolute Neutrophil Count 15.2 X10^3/uL (2.0-7.7); Basophil# 0.08 X10^3/uL; Basophil% 0.4 % (0-1); Eosinophil# 0.15 X10^3/uL; Eosinophils% 0.7 % (0-5); Hematocrit 40.4 % (40-54); Hemoglobin 13.1 g/dL (13.0-16.5); Lymphocyte # 1.64 X10^3/ul (0.83-4.51); Lymphocyte % 8.2 % (19-41); Mean Corp Hgb Conc 32.4 g/dL (32-36); Mean Corpuscular Hgb 27.1 pg (27.0-32.0); Mean Corpuscular Volume 83.6 fL (80-94); Mean Platelet Vol. 8.7 fl (6.2-12.0); Monocyte# 2.89 X10^3/uL; Monocyte% 14.4 % (0-10); NRBC Flagged by Analyzer 0 % (0-5); Neutrophil # 15.18 X10^3/uL (2.7-7.7); Neutrophil % 75.9 % (47-70); POSITIVE DIFFERENTIAL YES; Platelet Count 523 K/mm3 (150-450); RBC Distribution Width CV 14.1 % (11.6-14.6); Red Blood Count 4.83 M/mm3 (4.6-6.2)
[2024-09-02 06:57] LABS: Differential Indicated SCAN CRITERIA MET
--- NOTE | 2024-09-02 07:11 | CON.PCM.SX_ITS ---
Assessment & Plan Assessment/Plan (1) Abscess of sigmoid colon due to diverticulitis: (2) Leukocytosis: PLAN: Plan Currently plan to treat conservatively continue clears until patient's pain has resolved/white blood count improved currently 20 from 20.3. If patient's has increased pain or bedside count or febrile may need more urgent surgery. Patient is currently on clears will not advance Continue IV Zosyn Continue pain control Continue ambulation Juliet Camacho M.D. Pager: [phone] [facility] [address] [place] [address], [facility], [address] [place] [id number] Office: [phone] HPI Consult Data Date of Consult: 09/02/24 HPI Narrative Reason for Consultation: Diverticulitis with abscess HPI Narrative: CARLOS MOULTON, is a 63 M who presents due to continued suprapubic pain patient states he has had this for about 2 weeks. Patient is never been hospitalized or diagnosed with diverticulitis. Patient last colonoscopy was in [address] Chavez. Patient that he was just constipated took some Dulcolax as well as milk of magnesia yesterday states the pain got worse in the morning. Thus patient came into the ER. In the ER patient would last count of 20.3 currently it is 20, patient was started on IV Zosyn. CT and pelvis does show diverticulitis with abscess about 3.6 cm. Patient denies any nausea vomiting states he has been eating fairly normally during this time as well. [facility] Medical History Wears glasses Wears dentures Easy bruising Smoker Home Medications ?Medication ?Instructions ?Recorded ?Last Taken ?Type Urinozinc 2 tab PO DAILY prostate 08/03/18 Unknown History glucosamine HCl 500 mg-msm 83 1 ea PO DAILY supplement 08/03/18 Unknown History mg-chondroitin 400 mg tablet multivitamin with folic acid 400 1 tab PO DAILY supplement 08/03/18 Unknown History mcg tablet (Thera) garlic 2,000 mg PO DAILY 09/08/21 Unknown History omega-3 fatty acids 1,000 mg PO DAILY 09/08/21 Unknown History Allergy/AdvReac Type Severity Reaction Status Date / Time No Known Allergies Allergy Verified 09/01/24 11:01 Surgical History Hx of shoulder replacement Hx of colonoscopy Social History Smoking Status: Current every day smoker tobacco type: cigarettes ROS Constitutional Constitutional: Denies anorexia Eyes Eyes: Denies change in vision ENT HEENT: Denies dysphagia Cardiovascular Cardiovascular: Denies chest pain Respiratory/Chest Respiratory/Chest: Denies productive cough Gastrointestinal Gastrointestinal: Reports abdominal pain and constipation; Denies nausea or vomiting Genitourinary Genitourinary: Denies dysuria Musculoskeletal Musculoskeletal: Denies joint swelling Integumentary Integumentary: Denies jaundice Neurologic Neurologic: Denies focal weakness Psychiatric Psychiatric: Denies anxiety Hematologic/Lymphatic Hematologic/Lymphatic: Denies easy bleeding Lab / Micro Data 09/02/24 06:24 09/02/24 06:24 Labs: Laboratory Results - last 24 hr 09/01/24 11:29: WBC 20.3 H, RBC 5.11, Hgb 14.3, Hct 42.1, MCV 82.4, MCH 28.0, MCHC 34.0, RDW Std Deviation 42.2, RDW Coeff of Celina 14.2, Plt Count 548 H, MPV 8.9, Immature Gran % (Auto) 0.600, Neut % (Auto) 72.2 H, Lymph % (Auto) 9.3 L, M anthony % (Auto) 16.4 H, Eos % (Auto) 1.0, Baso % (Auto) 0.5, Absolute Neuts (auto) 14.7 H, Absolute Lymphs (auto) 1.90, Nucleated RBC % 0, Diff Path Review February, Platelet Estimate MOD INC, Sodium 137, Potassium 4.0, Chloride 104, Carbon Dioxide 27.0, Anion Gap 6, BUN 14, Creatinine 0.89, Estim Creat Clear Calc 85.38, Est GFR (MDRD) Af Amer 110, Est GFR (MDRD) Non-Af 91, BUN/Creatinine Ratio 15.7, Glucose 115 H, Calcium 8.8 09/01/24 12:00: Lactic Acid 0.8 09/01/24 13:05: Urine Color Yellow, Urine Clarity Clear, Urine pH 5.0, Ur Specific [place] 1.010, Urine Protein 30 H, Urine Glucose (UA) Normal, Urine Ketones Negative, Urine Occult Blood Negative, Urine Nitrite Negative, Urine Bilirubin Negative, Urine Urobilinogen Normal, Ur Leukocyte Esterase 25 H, Urine RBC 0 SEEN, Urine WBC 0-5 SEEN, Ur Squamous Epith Cells 0-5 SEEN, Urine Bacteria 0 SEEN, Urine Mucus 0 SEEN 09/02/24 06:24: WBC 20.0 H, RBC 4.83, Hgb 13.1, Hct 40.4, MCV 83.6, MCH 27.1, MCHC 32.4, RDW Std Deviation 43.0, RDW Coeff of Celina 14.1, Plt Count 523 H, MPV 8.7, Immature Gran % (Auto) 0.400, Neut % (Auto) 75.9 H, Lymph % (Auto) 8.2 L, M anthony % (Auto) 14.4 H, Eos % (Auto) 0.7, Baso % (Auto) 0.4, Absolute Neuts (auto) 15.2 H, Absolute Lymphs (auto) 1.64, Nucleated RBC % 0 Imaging Radiology Impression Abdomen/Pelvis CT 09/01/24 11:18 IMPRESSION: Complicated sigmoid diverticulitis with associated pericolonic abscess and inflammatory changes. No large volume pneumoperitoneum. No bowel obstruction. Electronically Signed: Joey Lafleur DO at 12:15 EST , ADDENDUM: 09/01/24 1231 IMPRESSION: Complicated sigmoid diverticulitis with associated pericolonic abscess and inflammatory changes. No large volume pneumoperitoneum. No bowel obstruction. N.B. : The above Results were Read Back by Joey Lafleur DO to Alan Mooney MD, and understanding confirmed on 09/01/2024 12:25:01 (ET). Electronically Signed: Joey Lafleur DO at 12:15 EST , Charges/Coding Visit Charges Inpatient E&M: 62776 Init Hosp L3
[2024-09-02 07:12] LABS: Anion Gap 4 (5-15); BUN 7 mg/dL (7-18); Calcium,Total 8.5 mg/dL (8.5-10.1); Chloride 108 mmol/L (98-107); Creatinine, Serum 0.64 mg/dL (0.70-1.30); EST Glomerular Filtration Rate 134 mL/min (>60); Est Glom Filt Rate - Afr Amer 162 mL/min (>60); Estimated Creatinine Clearance 112.96 ml/min; Glucose 128 mg/dL (74-106); Magnesium 2.3 mg/dL (1.6-2.6); Phosphorus 2.8 mg/dL (2.5-4.9); Potassium 4.2 mmol/L (3.5-5.1); Sodium Level 137 mmol/L (136-145)
[2024-09-02 07:14] LABS: Anisocytosis 1+; Differential Comment SCANNED; Ovalocyte 1+; Platelet Estimate ADEQUATE (ADEQ); Polychromasia 1+
--- NOTE | 2024-09-02 07:15 | PN.HOSP_ITS ---
Reason for Visit Reason for Visit: Diagnoses Diverticulitis of large intestine with perforation and abscess without bleeding (09/01/24) Subjective Subjective Patient seen abdominal cramps improved however WBC count still remains elevated. Objective Data Objective Data Vital Signs: Vital Signs Temp Pulse Resp BP Pulse Ox O2 Del Method 98.1 F 76 16 120/78 96 Room Air 09/02/24 02:17 09/02/24 02:17 09/02/24 02:17 09/02/24 02:17 09/02/24 02:17 09/02/24 02:17 Oxygen Delivery Method Room Air Weight: 68.492 kg Body Mass Index (BMI) 22.3 Intake & Output: Intake and Output for Last 24 Hours 08/31/24 09/01/24 09/02/24 23:59 22:59 23:59 Intake Total 520 / 870 1600 / 1600 Balance 520 / 870 1600 / 1600 Lab / Micro Data 09/02/24 06:24 09/02/24 06:24 Labs: Laboratory Results - last 24 hr 09/01/24 11:29: WBC 20.3 H, RBC 5.11, Hgb 14.3, Hct 42.1, MCV 82.4, MCH 28.0, MCHC 34.0, RDW Std Deviation 42.2, RDW Coeff of Celina 14.2, Plt Count 548 H, MPV 8.9, Immature Gran % (Auto) 0.600, Neut % (Auto) 72.2 H, Lymph % (Auto) 9.3 L, M anthony % (Auto) 16.4 H, Eos % (Auto) 1.0, Baso % (Auto) 0.5, Absolute Neuts (auto) 14.7 H, Absolute Lymphs (auto) 1.90, Nucleated RBC % 0, Diff Path Review May foll, Platelet Estimate MOD INC, Sodium 137, Potassium 4.0, Chloride 104, Carbon Dioxide 27.0, Anion Gap 6, BUN 14, Creatinine 0.89, Estim Creat Clear Calc 85.38, Est GFR (MDRD) Af Amer 110, Est GFR (MDRD) Non-Af 91, BUN/Creatinine Ratio 15.7, Glucose 115 H, Calcium 8.8 09/01/24 12:00: Lactic Acid 0.8 09/01/24 13:05: Urine Color Yellow, Urine Clarity Clear, Urine pH 5.0, Ur Specific [place] 1.010, Urine Protein 30 H, Urine Glucose (UA) Normal, Urine Ketones Negative, Urine Occult Blood Negative, Urine Nitrite Negative, Urine Bilirubin Negative, Urine Urobilinogen Normal, Ur Leukocyte Esterase 25 H, Urine RBC 0 SEEN, Urine WBC 0-5 SEEN, Ur Squamous Epith Cells 0-5 SEEN, Urine Bacteria 0 SEEN, Urine Mucus 0 SEEN 09/02/24 06:24: WBC 20.0 H, RBC 4.83, Hgb 13.1, Hct 40.4, MCV 83.6, MCH 27.1, MCHC 32.4, RDW Std Deviation 43.0, RDW Coeff of Celina 14.1, Plt Count 523 H, MPV 8.7, Immature Gran % (Auto) 0.400, Neut % (Auto) 75.9 H, Lymph % (Auto) 8.2 L, M anthony % (Auto) 14.4 H, Eos % (Auto) 0.7, Baso % (Auto) 0.4, Absolute Neuts (auto) 15.2 H, Absolute Lymphs (auto) 1.64, Nucleated RBC % 0, Differential Comment SCANNED, Diff Path Review February, Platelet Estimate ADEQUATE, Polychromasia 1+, Anisocytosis 1+, Ovalocytes 1+, Sodium 137, Potassium 4.2, Chloride 108 H, Carbon Dioxide 25.0, Anion Gap 4 L, BUN 7, Creatinine 0.64 L, Estim Creat Clear Calc 112.96, Est GFR (MDRD) Af Amer 162, Est GFR (MDRD) Non-Af 134, BUN/Creatinine Ratio 11.0, Glucose 128 H, Calcium 8.5, Phosphorus 2.8, Magnesium 2.3 Radiography Diagnostic Testing: Radiology Impression Abdomen/Pelvis CT 09/01/24 11:18 IMPRESSION: Complicated sigmoid diverticulitis with associated pericolonic abscess and inflammatory changes. No large volume pneumoperitoneum. No bowel obstruction. Electronically Signed: Joey Lafleur DO at 12:15 EST , ADDENDUM: 09/01/24 1231 IMPRESSION: Complicated sigmoid diverticulitis with associated pericolonic abscess and inflammatory changes. No large volume pneumoperitoneum. No bowel obstruction. N.B. : The above Results were Read Back by Joey Lafleur DO to Alan Mooney MD, and understanding confirmed on 09/01/2024 12:25:01 (ET). Electronically Signed: Joey Lafleur DO at 12:15 EST , Physical Exam Narrative GENERAL: cooperative HEENT: Atraumatic; normocephalic EYES; Anicteric, Normal Conjunctiva NECK; supple, normal thyroid, RESPIRATORY: Diminished to auscultation CARDIOVASCULAR: Regular S1 S2, GI: soft, normoactive bowel sounds, : No Renal angle tenderness; EXTREMITIES: No edema, no clubbing, MUSCULOSKELETAL: no muscle wasting NEURO: Awake; no lateralizing signs. SKIN: No Rash PSYCH; Flat affect Assessment & Plan Assessment/Plan (1) Abscess of sigmoid colon due to diverticulitis: PLAN: Plan Patient is a 63-year-old gentleman presented with abdominal pain 1. Acute complicated sigmoid diverticulitis -with associated pericolonic abscess and inflammatory changes. Patient has been admitted to regular nursing floor started on broad-spectrum antibiotic therapy with Zosyn. Response to treatment being monitored with level of his pain as well as WBC count which has been ordered daily. Consult was placed to general surgery ? 09/02/2024 patient was seen in consultation by Dr. Mixon and notes and recommendations reviewed. Patient abdominal cramps improved however WBC count remains elevated 2. Chronic alcohol dependence ? Patient admitted to drinking 6 beers every day. Patient be placed on DT precautions. Also did order hydroxyzine as needed for anxiety 3. Tobacco dependence ? Counseled on cessation, offered nicotine patch for tobacco cravings 4. DVT prophylaxis ? Subcu heparin Time spent in the patient's overall evaluation,decision-making process, review of diagnostic data, adjustment of management, discussion with other providers, nursing nursing and ancillary staff involved in patient's care documentation, 38 minutes Charges/Coding Visit Charges Inpatient E&M: 82912 Subs Hosp L2
[2024-09-02 07:52] VITALS: BP 119/76; PULSE 80; RESP 16; TEMP 37.3; O2SAT 97
[2024-09-02] MEDS: Folic Acid 1 MG Tablet PO (08:04)
[2024-09-02] MEDS: Thiamine Hydrochloride 100 MG Tablet PO (08:04)
[2024-09-02] MEDS: Heparin Injection (Vial) 5,000 UNIT/ML VIAL 5000 UNIT SC ×2 (09:43→20:59)
--- NOTE | 2024-09-02 11:50 | CASEMGMT ---
LANI GUARDADO Assessment Face to Face with patient for initial transition planning/care coordination assessment. LANI GUARDADO introduced self and role at [facility], pt voices understanding. Pt is A&Ox4 and is resting comfortably in bed and is calm. Care providers, pharmacy, and demographics verified. Admitting dx: Diverticulitis LACE Strata: 1 PCP: No PCP. Pt declines list and states that his has already looked into local in-network providers and that he will get established. Specialists: denies Preferred [facility]acy: [facility] Insurance: [facility] Prescription Benefit: Yes LNOK: Jenn Robles (W) Living Arrangements: Pt lives with his in a 2 story home with a flat entrance ADLs/IADLs: Ind Transportation: Self, DME: Denies HHC/SNF: Denies Pt?s goal: Home Plan: Home no needs. 6-Click is 24. Pt denies needs moving forward and states that he feels safe returning home with his once medically ready. Report given to KATELIN GARIBAY CM. Serina Lozada RN, CM
[2024-09-02 14:02] VITALS: BP 122/73; PULSE 80; RESP 16; TEMP 37.8; O2SAT 96
[2024-09-02 14:26] LABS: Pathologist Review Reviewed
[2024-09-02 20:00] VITALS: BP 128/74; PULSE 80; RESP 16; TEMP 36.9; O2SAT 94
[2024-09-02 22:00] VITALS: PULSE 80; RESP 16; O2SAT 94
[2024-09-03 02:00] VITALS: BP 126/72; PULSE 81; RESP 16; TEMP 36.9; O2SAT 95
[2024-09-03] MEDS: Piperacil/Tazobactam 3.375 GM in 0.9% Normal Saline (50mL MB+) 50 ML IV ×3 (05:56→21:42)
[2024-09-03] MEDS: Acetaminophen 500 MG Tablet 1000 MG PO ×2 (05:56→14:36)
[2024-09-03 08:18] LABS: Absolute Lymphocyte Count 1.61 X10^3/uL (0.83-4.51); Absolute Neutrophil Count 15.1 X10^3/uL (2.0-7.7); Basophil# 0.05 X10^3/uL; Basophil% 0.3 % (0-1); Eosinophil# 0.19 X10^3/uL; Hemoglobin 12.9 g/dL (13.0-16.5); Lymphocyte # 1.61 X10^3/ul (0.83-4.51); Lymphocyte % 8.2 % (19-41); Mean Corp Hgb Conc 32.3 g/dL (32-36); Mean Corpuscular Hgb 27.3 pg (27.0-32.0); Mean Corpuscular Volume 84.6 fL (80-94); Mean Platelet Vol. 8.6 fl (6.2-12.0); Monocyte# 2.66 X10^3/uL; Monocyte% 13.5 % (0-10); NRBC Flagged by Analyzer 0 % (0-5); Neutrophil % 76.3 % (47-70); POSITIVE DIFFERENTIAL YES; Platelet Count 536 K/mm3 (150-450); RBC Distribution Width CV 14.1 % (11.6-14.6); RBC Distribution Width SD 43.5 fl (35.1-43.9); Red Blood Count 4.73 M/mm3 (4.6-6.2); White Blood Count 19.7 K/mm3 (4.4-11.0)
[2024-09-03 08:22] VITALS: BP 113/70; PULSE 76; RESP 16; TEMP 36.8; O2SAT 97
[2024-09-03 08:23] LABS: Differential Indicated SCAN CRITERIA MET
--- NOTE | 2024-09-03 08:41 | PN.SURG_ITS ---
Subjective Subjective Patient is evaluated sitting comfortably in the chair. He denies nausea, vomiting. He states his pain has improved and is not noting any pain this morning. He states he is passing lots of flatus and has had a bowel movement all without pain. He was on clear liquids yesterday and tolerated clears without any pain. He notes feeling hungry this morning. He did have a fever around 2:00 pm yesterday otherwise his temperature has been normal. Objective Data Objective Data Vital Signs: Vital Signs Temp Pulse Resp BP Pulse Ox O2 Del Method 98.2 F 76 16 113/70 97 Room Air 09/03/24 08:22 09/03/24 08:22 09/03/24 08:22 09/03/24 08:22 09/03/24 08:22 09/03/24 08:22 Oxygen Delivery Method Room Air Weight: 151 lb Body Mass Index (BMI) 22.3 Intake & Output: Intake and Output for Last 24 Hours 09/01/24 09/02/24 09/03/24 22:59 23:59 23:59 Intake Total 520 / 870 3670 / 3790 170 / 170 Balance 520 / 870 3670 / 3790 170 / 170 Lab / Micro Data 09/03/24 07:37 09/02/24 06:24 Labs: Laboratory Results - last 24 hr 09/01/24 11:29: Diff Path Review Reviewed 09/03/24 07:37: WBC 19.7 H, RBC 4.73, Hgb 12.9 L, Hct 40.0, MCV 84.6, MCH 27.3, MCHC 32.3, RDW Std Deviation 43.5, RDW Coeff of Celina 14.1, Plt Count 536 H, MPV 8.6, Immature Gran % (Auto) 0.700, Neut % (Auto) 76.3 H, Lymph % (Auto) 8.2 L, M anthony % (Auto) 13.5 H, Eos % (Auto) 1.0, Baso % (Auto) 0.3, Absolute Neuts (auto) 15.1 H, Absolute Lymphs (auto) 1.61, Nucleated RBC % 0 Physical Exam GI GI Narrative: Abdomen- soft, no true pain, slight pressure sensation to the LLQ/groin region. Positive bowel sounds. Assessment & Plan Assessment/Plan (1) Abscess of sigmoid colon due to diverticulitis: PLAN: I am following this patient in conjunction with Dr. Camacho. She will independently evaluate this patient. CBC reviewed with WBC slight decrease from 20.0 to 19.7 Continue Zosyn May have clears today Will need to repeat CT scan possibly Monday or to monitor abscess formation status White count continues to be elevated; likely no discharge until white count comes down more No surgical intervention planned for today If symptoms change, surgical intervention may be needed Continue to encourage ambulation We will continue to monitor this patient Charges/Coding Visit Charges Inpatient E&M: 72254 Subs Hosp L1
[2024-09-03] MEDS: Thiamine Hydrochloride 100 MG Tablet PO (08:43)
[2024-09-03] MEDS: Folic Acid 1 MG Tablet PO (08:43)
[2024-09-03 09:02] LABS: Anion Gap 7 (5-15); BUN 6 mg/dL (7-18); BUN/Creat Ratio 8.6 RATIO (10-20); Calcium,Total 8.7 mg/dL (8.5-10.1); Chloride 106 mmol/L (98-107); EST Glomerular Filtration Rate 121 mL/min (>60); Est Glom Filt Rate - Afr Amer 146 mL/min (>60); Estimated Creatinine Clearance 89.18 ml/min; Glucose 115 mg/dL (74-106); Potassium 4.1 mmol/L (3.5-5.1); Sodium Level 139 mmol/L (136-145)
--- NOTE | 2024-09-03 11:22 | PN.HOSP_ITS ---
Reason for Visit Reason for Visit: Diagnoses Elevated white blood cell count, unspecified (09/01/24) Diverticulitis of large intestine with perforation and abscess without bleeding (09/01/24) Subjective Subjective Saw patient at bedside this morning. Patient was sitting up comfortably in bedside chair, conversing normally, in no distress. Stated he felt significantly improved today. Denied any abdominal pain or discomfort. Tolerating a clear liquid diet without issue. Denies any fevers or chills. He is hoping to go home soon. No other acute concerns. Objective Data Objective Data Vital Signs: Vital Signs Temp Pulse Resp BP Pulse Ox O2 Del Method 98.2 F 76 16 113/70 97 Room Air 09/03/24 08:22 09/03/24 08:22 09/03/24 08:22 09/03/24 08:22 09/03/24 08:22 09/03/24 08:22 Oxygen Delivery Method Room Air Weight: 68.492 kg Body Mass Index (BMI) 22.3 Intake & Output: Intake and Output for Last 24 Hours 09/01/24 09/02/24 09/03/24 22:59 23:59 23:59 Intake Total 520 / 870 3670 / 3790 1170 / 1170 Balance 520 / 870 3670 / 3790 1170 / 1170 Lab / Micro Data 09/03/24 07:37 09/03/24 07:37 Labs: Laboratory Results - last 24 hr 09/01/24 11:29: Diff Path Review Reviewed 09/03/24 07:37: WBC 19.7 H, RBC 4.73, Hgb 12.9 L, Hct 40.0, MCV 84.6, MCH 27.3, MCHC 32.3, RDW Std Deviation 43.5, RDW Coeff of Celina 14.1, Plt Count 536 H, MPV 8.6, Immature Gran % (Auto) 0.700, Neut % (Auto) 76.3 H, Lymph % (Auto) 8.2 L, M anthony % (Auto) 13.5 H, Eos % (Auto) 1.0, Baso % (Auto) 0.3, Absolute Neuts (auto) 15.1 H, Absolute Lymphs (auto) 1.61, Nucleated RBC % 0, Diff Path Review February, Sodium 139, Potassium 4.1, Chloride 106, Carbon Dioxide 25.0, Anion Gap 7, BUN 6 L, Creatinine 0.70, Estim Creat Clear Calc 89.18, Est GFR (MDRD) Af Amer 146, Est GFR (MDRD) Non-Af 121, BUN/Creatinine Ratio 8.6 L, Glucose 115 H, Calcium 8.7 Physical Exam Const alert, oriented x3, no apparent distress, average body habitus, healthy appearing and well nourished Constitutional Narrative: Pleasant middle-age male, sitting up comfortably in bedside chair, conversing normally, no acute distress. General Appearance: cooperative, comfortable, well kempt and well developed HEENT normocephalic, head/scalp atraumatic, hearing grossly normal bilaterally, nasal mucous membranes and turbinates normal and moist oral mucous membranes Eyes PERRL, EOMs intact bilaterally and conjunctivae normal Neck full ROM Chest inspection of chest normal Resp normal respiratory effort, normal air movement, no use of accessory muscles and clear to auscultation bilaterally Cardio regular rate, regular rhythm, no murmurs and peripheral pulses 2+ throughout GI normal to inspection, nondistended, normoactive bowel sounds, soft to palpation, non-tender and non-distended Back/Spine normal ROM Extremity normal to inspection and no pedal edema Skin no rashes or lesions noted Psych mental status grossly normal Assessment & Plan Assessment/Plan (1) Abscess of sigmoid colon due to diverticulitis: PLAN: Plan Patient is a 64-year-old male who presented [facility] ED on 09/01/2024 with worsening abdominal pain. 1. Acute complicated sigmoid diverticulitis ? Surgery following. CT abdomen pelvis on admit showed complicated sigmoid diverticulitis with associated pericolonic abscess inflammatory changes. WBC count elevated on admit. No acute surgical indication. Continue IV Zosyn. Patient tolerating clinical diet without issue, advance per surgery recommendations. WBC count slowly downtrending; per surgery will need to see greater improvement in this prior to discharge. Will need repeat CT scan either tomorrow or for further evaluation. Appreciate further surgery recommendations. 2. Chronic alcohol dependence ? Reported drinking 6 beers daily. Placed on DT precautions on admit, has not triggered this. Will continue to monitor. 3. Tobacco dependence ? Encourage cessation. Nicotine patch placed per patient request. DVT prophylaxis: Heparin subcu CODE STATUS: Full code, verified Expected disposition: Home, 1 to 2 days Total clinical time spent by myself addressing the patient's medical issues, reviewing all the data, and collaborating with patient's care team: 35 minutes. Charges/Coding Visit Charges Inpatient E&M: 30467 Subs Hosp L2
[2024-09-03 13:50] LABS: Pathologist Review Reviewed
[2024-09-03 14:30] VITALS: BP 122/64; PULSE 81; RESP 16; TEMP 37.3; O2SAT 99
[2024-09-03 19:48] VITALS: BP 123/75; PULSE 74; RESP 15; TEMP 36.8; O2SAT 98
[2024-09-03 22:00] VITALS: RESP 15
[2024-09-04] MEDS: Piperacil/Tazobactam 3.375 GM in 0.9% Normal Saline (50mL MB+) 50 ML IV (05:55)
[2024-09-04 06:33] LABS: Absolute Lymphocyte Count 1.96 X10^3/uL (0.83-4.51); Absolute Neutrophil Count 13.9 X10^3/uL (2.0-7.7); Basophil# 0.06 X10^3/uL; Basophil% 0.3 % (0-1); Eosinophils% 1.6 % (0-5); Hematocrit 42.5 % (40-54); Hemoglobin 13.9 g/dL (13.0-16.5); Lymphocyte # 1.96 X10^3/ul (0.83-4.51); Lymphocyte % 10.5 % (19-41); Mean Corp Hgb Conc 32.7 g/dL (32-36); Mean Corpuscular Hgb 27.4 pg (27.0-32.0); Mean Corpuscular Volume 83.7 fL (80-94); Mean Platelet Vol. 8.7 fl (6.2-12.0); Monocyte% 12.3 % (0-10); NRBC Flagged by Analyzer 0 % (0-5); Neutrophil # 13.88 X10^3/uL (2.7-7.7); Neutrophil % 74.6 % (47-70); POSITIVE DIFFERENTIAL YES; Platelet Count 597 K/mm3 (150-450); RBC Distribution Width CV 14.1 % (11.6-14.6); RBC Distribution Width SD 43.3 fl (35.1-43.9); Red Blood Count 5.08 M/mm3 (4.6-6.2); White Blood Count 18.6 K/mm3 (4.4-11.0)
[2024-09-04 06:35] LABS: Differential Indicated SCAN CRITERIA MET
--- NOTE | 2024-09-04 06:47 | NURSING ---
to CT via wheelchair for scheduled CT abd.
[2024-09-04 06:54] LABS: Anion Gap 5 (5-15); BUN 8 mg/dL (7-18); BUN/Creat Ratio 10.9 RATIO (10-20); Calcium,Total 9.2 mg/dL (8.5-10.1); Chloride 103 mmol/L (98-107); Creatinine, Serum 0.74 mg/dL (0.70-1.30); EST Glomerular Filtration Rate 114 mL/min (>60); Est Glom Filt Rate - Afr Amer 137 mL/min (>60); Estimated Creatinine Clearance 89.18 ml/min; Glucose 91 mg/dL (74-106); Sodium Level 136 mmol/L (136-145)
--- NOTE | 2024-09-04 07:00 | CT_ITS ---
STUDY: CT ABDOMEN AND PELVIS WITH CONTRAST REASON FOR EXAM: Male, 64 years old. Abscess of sigmoid colon due to diverticulitis RADIATION DOSAGE (If Supplied By Facility): CTDIvol = ( 11.01 ) mGy, DLP = ( 534.94 ) mGycm TECHNIQUE: Transaxial images were obtained from the dome of the diaphragm to the symphysis pubis with oral contrast. Oral and amp; IV Gastrografin and amp; 100mL Isovue-300 was administered. Sagittal and coronal images were reconstructed. Individualized dose optimization techniques were used for this CT. COMPARISON: Comparison is made with prior study dated September 01, 2024. FINDINGS: The visualized lung bases are unremarkable. The visualized portions of the heart are within normal limits. Normal liver. Normal gallbladder and extrahepatic biliary system. Normal spleen. Normal pancreas. Normal bilateral adrenal glands. Normal right kidney. Normal left kidney. Normal visualized stomach. Normal small intestine. There is diverticulosis, with thickening of the colon wall, and pericolonic inflammation changes consistent with acute diverticulitis. Diffuse thickening of the sigmoid colon as well as diverticulosis. Localized contained perforation. Once again, there is a small fluid collection with an air-fluid level indicative of a small abscess. It presently measures 2.4 cm x 2 cm. The appendix is visualized and appears normal. There is scattered atherosclerotic calcification of the abdominal aorta, without a demonstrated aneurysm. Normal inferior vena cava. Normal retroperitoneum. Diffuse bladder wall thickening with increased markings in the surrounding peritoneal fat. Prostatic enlargement. Central prostatic calcifications. Normal abdominal wall. There are mild degenerative changes of the visualized lumbar spine. CT/Abdomen/Pelvis WITH Contrast IMPRESSION: Persistent acute sigmoid diverticulitis with diffuse diverticulosis in the inflammatory change and wall thickening. Persistent small walled off fluid collection with air-fluid level suggestive of abscess presently measuring 2.4 cm x 2 cm. Diffuse bladder wall thickening. Prostatic enlargement and calcification. Electronically Signed: Brennan Gunn MD at 8:53 EST ,
[2024-09-04 07:14] LABS: Differential Comment SCANNED; Stomatocyte 1+
[2024-09-04] MEDS: Folic Acid 1 MG Tablet PO (07:41)
[2024-09-04] MEDS: Thiamine Hydrochloride 100 MG Tablet PO (07:41)
[2024-09-04 07:49] VITALS: BP 114/74; PULSE 89; RESP 16; TEMP 36.9; O2SAT 97
--- NOTE | 2024-09-04 08:42 | PN.SURG_ITS ---
Subjective Subjective Patient evaluated sitting comfortably in bed. He denies any nausea, vomiting, fever. He notes positive bowel movement and flatus yesterday. He is urinating well. Objective Data Objective Data Vital Signs: Vital Signs Temp Pulse Resp BP Pulse Ox O2 Del Method 98.4 F 89 16 114/74 97 Room Air 09/04/24 07:49 09/04/24 07:49 09/04/24 07:49 09/04/24 07:49 09/04/24 07:49 09/04/24 07:50 Oxygen Delivery Method Room Air Weight: 151 lb Body Mass Index (BMI) 22.3 Intake & Output: Intake and Output for Last 24 Hours 09/02/24 09/03/24 09/04/24 23:59 23:59 23:59 Intake Total 3670 / 3790 1270 / 1270 60.21 / 60.21 Balance 3670 / 3790 1270 / 1270 60.21 / 60.21 Lab / Micro Data 09/04/24 06:07 09/04/24 06:07 Labs: Laboratory Results - last 24 hr 09/02/24 06:24: Diff Path Review Reviewed 09/03/24 07:37: Diff Path Review February foll, Sodium 139, Potassium 4.1, Chloride 106, Carbon Dioxide 25.0, Anion Gap 7, BUN 6 L, Creatinine 0.70, Estim Creat Clear Calc 89.18, Est GFR (MDRD) Af Amer 146, Est GFR (MDRD) Non-Af 121, B UN/Creatinine Ratio 8.6 L, Glucose 115 H, Calcium 8.7 09/04/24 06:07: WBC 18.6 H, RBC 5.08, Hgb 13.9, Hct 42.5, MCV 83.7, MCH 27.4, MCHC 32.7, RDW Std Deviation 43.3, RDW Coeff of [place] 14.1, Plt Count 597 H, MPV 8.7, Immature Gran % (Auto) 0.700, Neut % (Auto) 74.6 H, Lymph % (Auto) 10.5 L, [place] % (Auto) 12.3 H, Eos % (Auto) 1.6, Baso % (Auto) 0.3, Absolute Neuts (auto) 13.9 H, Absolute Lymphs (auto) 1.96, Nucleated RBC % 0, Differential Comment SCANNED, Diff Path Review February foll, Stomatocytes 1+, Sodium 136, Potassium 4.0, Chloride 103, Carbon Dioxide 28.0, Anion Gap 5, BUN 8, Creatinine 0.74, Estim Creat Clear Calc 89.18, Est GFR (MDRD) Af Amer 137, Est GFR (MDRD) Non-Af 114, BUN/Creatinine Ratio 10.9, Glucose 91, Calcium 9.2 Physical Exam GI GI Narrative: Abdomen- soft, nontender, nondistended Assessment & Plan Assessment/Plan (1) Abscess of sigmoid colon due to diverticulitis: PLAN: I am following this patient in conjunction with Dr. Camacho. She will independently evaluate this patient. Labs reviewed. WBC is slowly decreasing. Plan to switch Zosyn to Merrem Increase diet to full liquids Repeat CT scan of ab/pel was completed this morning showing no change in fluid collection. Fluid collection is more consistent with a phlegmon. No drain placement. We will continue to monitor this patient No discharge today. Would like to see white count ideally return to normal Charges/Coding Visit Charges Inpatient E&M: 39234 Subs Hosp L1
[2024-09-04] MEDS: Meropenem 1 GM in 0.9% Normal Saline (100mL MB+) 100 ML IV ×3 (09:51→21:34)
--- NOTE | 2024-09-04 11:58 | PCM.PN.HOSP ---
Reason for Visit Reason for Visit: Diagnoses Elevated white blood cell count, unspecified (09/01/24) Diverticulitis of large intestine with perforation and abscess without bleeding (09/01/24) Subjective Subjective Saw patient at bedside this morning. Patient appeared similar to yesterday. Was sitting up comfortably in bedside chair, conversing normally, in no acute distress. Did state that he is frustrated about having to remain in the hospital as he is feeling improved. No other acute concerns this morning. Objective Data Objective Data Vital Signs: Vital Signs Temp Pulse Resp BP Pulse Ox O2 Del Method 98.4 F 89 16 114/74 97 Room Air 09/04/24 07:49 09/04/24 07:49 09/04/24 07:49 09/04/24 07:49 09/04/24 07:49 09/04/24 07:50 Oxygen Delivery Method Room Air Weight: 68.492 kg Body Mass Index (BMI) 22.3 Intake & Output: Intake and Output for Last 24 Hours 09/02/24 09/03/24 09/04/24 23:59 23:59 23:59 Intake Total 3670 / 3790 1270 / 1270 60.21 / 60.21 Balance 3670 / 3790 1270 / 1270 60.21 / 60.21 Lab / Micro Data 09/04/24 06:07 09/04/24 06:07 Labs: Laboratory Results - last 24 hr 09/02/24 06:24: Diff Path Review Reviewed 09/04/24 06:07: WBC 18.6 H, RBC 5.08, Hgb 13.9, Hct 42.5, MCV 83.7, MCH 27.4, MCHC 32.7, RDW Std Deviation 43.3, RDW Coeff of [place] 14.1, Plt Count 597 H, MPV 8.7, Immature Gran % (Auto) 0.700, Neut % (Auto) 74.6 H, Lymph % (Auto) 10.5 L, [place] % (Auto) 12.3 H, Eos % (Auto) 1.6, Baso % (Auto) 0.3, Absolute Neuts (auto) 13.9 H, Absolute Lymphs (auto) 1.96, Nucleated RBC % 0, Differential Comment SCANNED, Diff Path Review May foll, Stomatocytes 1+, Sodium 136, Potassium 4.0, Chloride 103, Carbon Dioxide 28.0, Anion Gap 5, BUN 8, Creatinine 0.74, Estim Creat Clear Calc 89.18, Est GFR (MDRD) Af Amer 137, Est GFR (MDRD) Non-Af 114, BUN/Creatinine Ratio 10.9, Glucose 91, Calcium 9.2 Radiography Diagnostic Testing: Radiology Impression Abdomen/Pelvis CT 09/04/24 07:00 IMPRESSION: Persistent acute sigmoid diverticulitis with diffuse diverticulosis in the inflammatory change and wall thickening. Persistent small walled off fluid collection with air-fluid level suggestive of abscess presently measuring 2.4 cm x 2 cm. Diffuse bladder wall thickening. Prostatic enlargement and calcification. Electronically Signed: Brennan Gunn MD at 8:53 EST , Physical Exam Const alert, oriented x3, no apparent distress, average body habitus, healthy appearing and well nourished Constitutional Narrative: Pleasant middle-age male, sitting up comfortably in bedside chair, conversing normally, no acute distress. General Appearance: cooperative, comfortable, well kempt and well developed HEENT normocephalic, head/scalp atraumatic, hearing grossly normal bilaterally, nasal mucous membranes and turbinates normal and moist oral mucous membranes Eyes PERRL, EOMs intact bilaterally and conjunctivae normal Neck full ROM Chest inspection of chest normal Resp normal respiratory effort, normal air movement, no use of accessory muscles and clear to auscultation bilaterally Cardio regular rate, regular rhythm, no murmurs and peripheral pulses 2+ throughout GI normal to inspection, nondistended, normoactive bowel sounds, soft to palpation, non-tender and non-distended Back/Spine normal ROM Extremity normal to inspection and no pedal edema Skin no rashes or lesions noted Psych mental status grossly normal Assessment & Plan Assessment/Plan (1) Abscess of sigmoid colon due to diverticulitis: PLAN: Plan Patient is a 64-year-old male who presented [facility] ED on 09/01/2024 with worsening abdominal pain. 1. Acute complicated sigmoid diverticulitis ? Surgery following. CT abdomen pelvis on admit showed complicated sigmoid diverticulitis with associated pericolonic abscess inflammatory changes. WBC count elevated on admit. Started on IV Zosyn on admission and patient had clinical improvement, but WBC count has remained elevated. Repeat CT abdomen pelvis on 09/04 showed persistent acute sigmoid diverticulitis with persistent small walled off fluid collection suggestive of abscess showing 2.4 x 2 cm. Per surgery, switched to IV meropenem on 09/04. Diet escalated to full liquid diet on 09/04. Surgery noted that fluid collection is more consistent with a phlegmon so no drain placement needed. No acute surgical indication currently. Continue to monitor and appreciate surgical recommendations on timing of discharge. 2. Chronic alcohol dependence ? Reported drinking 6 beers daily. Placed on DT precautions on admit, has not triggered this. Will continue to monitor. 3. Tobacco dependence ? Encourage cessation. Nicotine patch placed per patient request. DVT prophylaxis: Heparin subcu CODE STATUS: Full code, verified Expected disposition: Home, TBD Total clinical time spent by myself addressing the patient's medical issues, reviewing all the data, and collaborating with patient's care team: 35 minutes. Charges/Coding Visit Charges Inpatient E&M: 77327 Subs Hosp L2
[2024-09-04 14:00] VITALS: BP 114/75; PULSE 84; RESP 18; TEMP 36.9; O2SAT 96
[2024-09-04] MEDS: Acetaminophen 500 MG Tablet 1000 MG PO (14:37)
[2024-09-04 14:40] LABS: Pathologist Review Reviewed
[2024-09-04 14:42] LABS: Pathologist Review Reviewed
[2024-09-04 21:22] VITALS: BP 126/67; PULSE 77; RESP 15; TEMP 36.9; O2SAT 99
[2024-09-05] MEDS: Dicyclomine 10 MG Capsule 20 MG PO (01:54)
[2024-09-05 02:01] VITALS: BP 120/79; PULSE 79; RESP 15; TEMP 36.8; O2SAT 97
[2024-09-05] MEDS: Meropenem 1 GM in 0.9% Normal Saline (100mL MB+) 100 ML IV ×3 (06:18→23:10)
[2024-09-05 07:27] LABS: Absolute Lymphocyte Count 2.02 X10^3/uL (0.83-4.51); Absolute Neutrophil Count 12.6 X10^3/uL (2.0-7.7); Basophil# 0.08 X10^3/uL; Basophil% 0.5 % (0-1); Eosinophil# 0.34 X10^3/uL; Hematocrit 42.9 % (40-54); Lymphocyte # 2.02 X10^3/ul (0.83-4.51); Lymphocyte % 11.7 % (19-41); Mean Corp Hgb Conc 32.6 g/dL (32-36); Mean Corpuscular Hgb 27.2 pg (27.0-32.0); Mean Corpuscular Volume 83.3 fL (80-94); Mean Platelet Vol. 8.9 fl (6.2-12.0); Monocyte# 2.11 X10^3/uL; Monocyte% 12.2 % (0-10); NRBC Flagged by Analyzer 0 % (0-5); Neutrophil # 12.62 X10^3/uL (2.7-7.7); Neutrophil % 73.2 % (47-70); POSITIVE DIFFERENTIAL YES; Platelet Count 636 K/mm3 (150-450); RBC Distribution Width CV 13.9 % (11.6-14.6); RBC Distribution Width SD 42.6 fl (35.1-43.9); Red Blood Count 5.15 M/mm3 (4.6-6.2); White Blood Count 17.2 K/mm3 (4.4-11.0)
[2024-09-05 07:29] LABS: Differential Indicated SCAN CRITERIA MET
--- NOTE | 2024-09-05 07:35 | PCM.PN.SRG ---
Subjective Subjective Patient evaluated resting comfortably in the chair. Patient noted a single episode of cramping last night which was relieved by a bowel movement. He denies nausea, vomiting, fever. He denies any abdominal pain with diet. He is tolerating a full liquid diet well. Objective Data Objective Data Vital Signs: Vital Signs Temp Pulse Resp BP Pulse Ox O2 Del Method 98.3 F 79 15 120/79 97 Room Air 09/05/24 02:01 09/05/24 02:01 09/05/24 02:01 09/05/24 02:01 09/05/24 02:01 09/05/24 02:01 Oxygen Delivery Method Room Air Weight: 151 lb Body Mass Index (BMI) 22.3 Intake & Output: Intake and Output for Last 24 Hours 09/03/24 09/04/24 09/05/24 23:59 23:59 23:59 Intake Total 1270 / 1270 1500.21 / 1500.21 120 / 120 Balance 1270 / 1270 1500.21 / 1500.21 120 / 120 Lab / Micro Data 09/05/24 06:58 09/05/24 06:58 Labs: Laboratory Results - last 24 hr 09/03/24 07:37: Diff Path Review Reviewed 09/04/24 06:07: Diff Path Review Reviewed 09/05/24 06:58: WBC 17.2 H, RBC 5.15, Hgb 14.0, Hct 42.9, MCV 83.3, MCH 27.2, MCHC 32.6, RDW Std Deviation 42.6, RDW Coeff of [place] 13.9, Plt Count 636 H, MPV 8.9, Immature Gran % (Auto) 0.400, Neut % (Auto) 73.2 H, Lymph % (Auto) 11.7 L, [place] % (Auto) 12.2 H, Eos % (Auto) 2.0, Baso % (Auto) 0.5, Absolute Neuts (auto) 12.6 H, Absolute Lymphs (auto) 2.02, Nucleated RBC % 0 Radiography Diagnostic Testing: Radiology Impression Abdomen/Pelvis CT 09/04/24 07:00 IMPRESSION: Persistent acute sigmoid diverticulitis with diffuse diverticulosis in the inflammatory change and wall thickening. Persistent small walled off fluid collection with air-fluid level suggestive of abscess presently measuring 2.4 cm x 2 cm. Diffuse bladder wall thickening. Prostatic enlargement and calcification. Electronically Signed: Brennan Gunn MD at 8:53 EST , Physical Exam GI GI Narrative: Abdomen- soft, positive bowel sounds. Nontender. Assessment & Plan Assessment/Plan (1) Leukocytosis: (2) Abscess of sigmoid colon due to diverticulitis: PLAN: Plan I am following this patient in conjunction with Dr. Camacho. She will independently evaluate this patient. Labs reviewed. WBC continues to slowly decrease, is now 17.2 Continue on full liquid diet at this time Continue with IV antibiotics We will continue to monitor this patient No discharge today. Would like to see white count ideally return to normal Charges/Coding Visit Charges Inpatient E&M: 36947 Subs Hosp L1
[2024-09-05 07:54] LABS: Anion Gap 7 (5-15); BUN 9 mg/dL (7-18); Calcium,Total 9.3 mg/dL (8.5-10.1); Chloride 106 mmol/L (98-107); Creatinine, Serum 0.69 mg/dL (0.70-1.30); EST Glomerular Filtration Rate 122 mL/min (>60); Est Glom Filt Rate - Afr Amer 147 mL/min (>60); Estimated Creatinine Clearance 89.18 ml/min; Glucose 91 mg/dL (74-106); Sodium Level 138 mmol/L (136-145)
[2024-09-05 08:38] VITALS: BP 129/74; PULSE 86; RESP 18; TEMP 36.7; O2SAT 96
[2024-09-05] MEDS: Thiamine Hydrochloride 100 MG Tablet PO (08:40)
[2024-09-05] MEDS: Folic Acid 1 MG Tablet PO (08:40)
[2024-09-05 14:38] VITALS: BP 122/92; PULSE 79; RESP 16; TEMP 37; O2SAT 96
[2024-09-05] MEDS: Acetaminophen 500 MG Tablet 1000 MG PO ×2 (14:40→20:07)
[2024-09-05] MEDS: 0.9% Saline Lock 10 ML Syringe IV (14:41)
--- NOTE | 2024-09-05 14:57 | PCM.PN.HOSP ---
Reason for Visit Reason for Visit: Diagnoses Elevated white blood cell count, unspecified (09/01/24) Diverticulitis of large intestine with perforation and abscess without bleeding (09/01/24) Objective Data Objective Data Vital Signs: Vital Signs Temp Pulse Resp BP Pulse Ox O2 Del Method 98.6 F 79 16 122/92 H 96 Room Air 09/05/24 14:38 09/05/24 14:38 09/05/24 14:38 09/05/24 14:38 09/05/24 14:38 09/05/24 14:38 Oxygen Delivery Method Room Air Weight: 151 lb Body Mass Index (BMI) 22.3 Intake & Output: Intake and Output for Last 24 Hours 09/03/24 09/04/24 09/05/24 23:59 23:59 23:59 Intake Total 1270 / 1270 1500.21 / 1500.21 240 / 240 Balance 1270 / 1270 1500.21 / 1500.21 240 / 240 Lab / Micro Data 09/05/24 06:58 09/05/24 06:58 Labs: Laboratory Results - last 24 hr 09/05/24 06:58: WBC 17.2 H, RBC 5.15, Hgb 14.0, Hct 42.9, MCV 83.3, MCH 27.2, MCHC 32.6, RDW Std Deviation 42.6, RDW Coeff of Celina 13.9, Plt Count 636 H, MPV 8.9, Immature Gran % (Auto) 0.400, Neut % (Auto) 73.2 H, Lymph % (Auto) 11.7 L, [place] % (Auto) 12.2 H, Eos % (Auto) 2.0, Baso % (Auto) 0.5, Absolute Neuts (auto) 12.6 H, Absolute Lymphs (auto) 2.02, Nucleated RBC % 0, Differential Comment COMMENT, Diff Path Review May foll, Sodium 138, Potassium 4.0, Chloride 106, Carbon Dioxide 25.0, Anion Gap 7, BUN 9, Creatinine 0.69 L, Estim Creat Clear Calc 89.18, Est GFR (MDRD) Af Amer 147, Est GFR (MDRD) Non-Af 122, BUN/Creatinine Ratio 13.0, Glucose 91, Calcium 9.3 Physical Exam Narrative Seen and examined. Patient does not have abdominal pain. Is diet has been advanced. Still has leukocytosis but no fever. Physical exam General: Alert, Oriented x3, Cooperative HEENT: Atraumatic, PERRLA, EOMI, Normocephalic Oral: No Gingival or Mucosal Lesions/ Ulcerations Neck: Supple, No JVD, Negative Carotid Bruits Chest wall/Lungs: Air entry diminished in bilateral lung bases. No crepitation/rhonchi Cardiovascular: Regular rate, Regular Rhythm, Normal S1, Normal S2, No M/G/R Abdomen: Bowel Sounds Present, Soft, Non Tender, Non-Distended. No rebound tenderness. : No dysuria. No renal angle tenderness. No suprapubic tenderness. Extremities: No edema, Capillary Refill Less than 3 Seconds Skin: No rashes, No breakdown Musculoskeletal: No Tenderness to Palpation of Joints or Extremities Neurological: Cranial nerves II-XII grossly intact, DTR 2+/4. No acute focal neurological deficit. Psych/Mental Status: Normal Affect, Appropriate. Assessment & Plan Assessment/Plan (1) Abscess of sigmoid colon due to diverticulitis: PLAN: Plan Patient is a 64-year-old male who presented [facility] ED on 09/01/2024 with worsening abdominal pain. 1. Acute complicated sigmoid diverticulitis ? Surgery following. CT abdomen pelvis on admit showed complicated sigmoid diverticulitis with associated pericolonic abscess inflammatory changes. WBC count elevated on admit. Started on IV Zosyn on admission and patient had clinical improvement, but WBC count has remained elevated. Repeat CT abdomen pelvis on 09/04 showed persistent acute sigmoid diverticulitis with persistent small walled off fluid collection suggestive of abscess showing 2.4 x 2 cm. Per surgery, switched to IV meropenem on 09/04. Diet escalated to full liquid diet on 09/04. Surgery noted that fluid collection is more consistent with a phlegmon so no drain placement needed. No acute surgical indication currently. Continue to monitor and appreciate surgical recommendations on timing of discharge. 09/05: Surgical note reviewed. Patient has leukocytosis but does not have abdominal pain tenderness. Moving his bowel. Clinically speaking, patient can be discharged probably tomorrow. 2. Chronic alcohol dependence ? Reported drinking 6 beers daily. Placed on DT precautions on admit, has not triggered this. Will continue to monitor. 3. Tobacco dependence ? Encourage cessation. Nicotine patch placed per patient request. DVT prophylaxis: Heparin subcu CODE STATUS: Full code, verified Expected disposition: Home, TBD Charges/Coding Visit Charges Inpatient E&M: 43768 Subs Hosp L2
[2024-09-05 20:04] VITALS: BP 122/84; PULSE 78; RESP 15; TEMP 36.7; O2SAT 98
[2024-09-06 05:00] VITALS: BP 123/80; PULSE 81; RESP 15; TEMP 36.8; O2SAT 98
[2024-09-06] MEDS: Meropenem 1 GM in 0.9% Normal Saline (100mL MB+) 100 ML IV ×3 (05:29→20:17)
[2024-09-06 06:35] LABS: Absolute Lymphocyte Count 1.86 X10^3/uL (0.83-4.51); Absolute Neutrophil Count 13.1 X10^3/uL (2.0-7.7); Basophil# 0.09 X10^3/uL; Basophil% 0.5 % (0-1); Eosinophil# 0.39 X10^3/uL; Eosinophils% 2.2 % (0-5); Hematocrit 42.1 % (40-54); Hemoglobin 13.9 g/dL (13.0-16.5); Lymphocyte # 1.86 X10^3/ul (0.83-4.51); Lymphocyte % 10.5 % (19-41); Mean Corpuscular Hgb 27.3 pg (27.0-32.0); Mean Corpuscular Volume 82.5 fL (80-94); Mean Platelet Vol. 8.6 fl (6.2-12.0); Monocyte# 2.16 X10^3/uL; Monocyte% 12.2 % (0-10); NRBC Flagged by Analyzer 0 % (0-5); Neutrophil # 13.06 X10^3/uL (2.7-7.7); Neutrophil % 74.1 % (47-70); POSITIVE DIFFERENTIAL YES; Platelet Count 626 K/mm3 (150-450); RBC Distribution Width SD 42.1 fl (35.1-43.9); White Blood Count 17.7 K/mm3 (4.4-11.0)
[2024-09-06 06:59] LABS: Anion Gap 6 (5-15); BUN 9 mg/dL (7-18); BUN/Creat Ratio 13.7 RATIO (10-20); Calcium,Total 8.9 mg/dL (8.5-10.1); Chloride 107 mmol/L (98-107); Creatinine, Serum 0.66 mg/dL (0.70-1.30); EST Glomerular Filtration Rate 129 mL/min (>60); Est Glom Filt Rate - Afr Amer 156 mL/min (>60); Estimated Creatinine Clearance 89.18 ml/min; Glucose 102 mg/dL (74-106); Potassium 3.9 mmol/L (3.5-5.1); Sodium Level 139 mmol/L (136-145)
[2024-09-06 07:04] LABS: Differential Indicated SCAN CRITERIA MET
[2024-09-06 07:54] VITALS: BP 107/62; PULSE 82; RESP 16; TEMP 36.7; O2SAT 97
--- NOTE | 2024-09-06 08:06 | PN.SURG_ITS ---
Subjective Subjective Patient seen and examined during AM rounds. He has found resting out of bed in the chair. He states he is becoming depressed by having to stay so long and denies any abdominal pain. He reports that he had a bowel movement this morning and that his bowel movement consistency is increasing with the adjustment to a full liquid diet. He denies any abdominal pain either with the bowel movement or generally. Objective Data Objective Data Vital Signs: Vital Signs Temp Pulse Resp BP Pulse Ox O2 Del Method 98.2 F 81 15 123/80 H 98 Room Air 09/06/24 05:00 09/06/24 05:00 09/06/24 05:00 09/06/24 05:00 09/06/24 05:00 09/06/24 05:00 Oxygen Delivery Method Room Air Weight: 151 lb Body Mass Index (BMI) 22.3 Intake & Output: Intake and Output for Last 24 Hours 09/04/24 09/05/24 09/06/24 23:59 23:59 23:59 Intake Total 1500.21 / 1500.21 360 / 360 120 / 120 Balance 1500.21 / 1500.21 360 / 360 120 / 120 Lab / Micro Data 09/06/24 05:25 09/06/24 05:25 Labs: Laboratory Results - last 24 hr 09/05/24 06:58: Differential Comment COMMENT, Diff Path Review February09/06/24 05:25: WBC 17.7 H, RBC 5.10, Hgb 13.9, Hct 42.1, MCV 82.5, MCH 27.3, MCHC 33.0, RDW Std Deviation 42.1, RDW Coeff of Celina 14.0, Plt Count 626 H, MPV 8.6, Immature Gran % (Auto) 0.500, Neut % (Auto) 74.1 H, Lymph % (Auto) 10.5 L, [place] % (Auto) 12.2 H, Eos % (Auto) 2.2, Baso % (Auto) 0.5, Absolute Neuts (auto) 13.1 H, Absolute Lymphs (auto) 1.86, Nucleated RBC % 0, Sodium 139, Potassium 3.9, Chloride 107, Carbon Dioxide 26.0, Anion Gap 6, BUN 9, Creatinine 0.66 L, Estim Creat Clear Calc 89.18, Est GFR (MDRD) Af Amer 156, Est GFR (MDRD) Non-Af 129, BUN/Creatinine Ratio 13.7, Glucose 102, Calcium 8.9 Physical Exam Const oriented x3 and no apparent distress Resp normal respiratory effort GI GI Narrative: Hirsute, nondistended, soft, nontender to palpation x 4 quadrants and with focus palpation and a suprapubic position Assessment & Plan Assessment/Plan (1) Leukocytosis: (2) Abscess of sigmoid colon due to diverticulitis: PLAN: Plan Patient is a 64-year-old male with presentation for complicated diverticulitis who is hospital day 5 for treatment of this diagnosis and is being managed conservatively with IV antibiotics. He reports no increase in his pain today and has no discomfort on exam. Unfortunately his labs were reviewed and his white blood cell count has increased to 17.7. Overall his differential appears stable. A thrombocytosis persist. I find this to represent a plateau in his response with the potential to go either way. Since this does represent a departure from the steady decline he has experienced to this point I cannot recommend discharge to home today. Instead, recommend continued IV antibiotic therapy and reassessment tomorrow. Patient is seen later in the afternoon and he continues to have mildly depressed mood but no significant abdominal pain. He does report some burning with urination and wishes to know if this is likely to represent a urinary tract infection. I shared with him that he is on meropenem and an atypical urinary tract infection bacteria would likely be susceptible to Merrem. Labs ordered for tomorrow will follow-up CBC Continue on full liquid diet at this time Continue with IV antibiotics with meropenem We will continue to monitor this patient No discharge today. Would like to see white blood cell count downtrending Case discussed with hospitalist service. Charges/Coding Visit Charges Inpatient E&M: 70158 Subs Hosp L2
[2024-09-06] MEDS: Thiamine Hydrochloride 100 MG Tablet PO (08:08)
[2024-09-06] MEDS: Folic Acid 1 MG Tablet PO (08:08)
--- NOTE | 2024-09-06 11:34 | PCM.DC ---
Discharge Instructions Diet Discharge Diet: Light diet - advance as tolerated Follow Up Care Test Results: Test results from this visit will be discussed in further detail at your follow-up appointment, if applicable. Discharge Plan Admission Admit Date/Time: 09/01/24 12:37 Attending Provider: Diogo Mendoza Primary Care Provider: Care Physician,No Primary Consulting Providers: Juliet Camacho; Chalino Schultz; Mahin Min Discharge Orders/Prescriptions Prescriptions: No Action multivitamin with folic acid [Thera] 1 TABLET tablet 1 tab PO DAILY glucosamine [id number] 1 EACH tablet 1 ea PO DAILY Urinozinc 2 tab PO DAILY garlic Capsule 2,000 mg PO DAILY Fish Oil Capsule 1,000 mg PO DAILY Referrals / Follow Up: Javed Gao DO [Med Staff - [facility] [employer] [facility]] - Care Physician,No Primary [Primary Care Provider] -
--- NOTE | 2024-09-06 12:05 | PN.HOSP_ITS ---
Reason for Visit Reason for Visit: Diagnoses Elevated white blood cell count, unspecified (09/01/24) Diverticulitis of large intestine with perforation and abscess without bleeding (09/01/24) Objective Data Objective Data Vital Signs: Vital Signs Temp Pulse Resp BP Pulse Ox O2 Del Method 98.1 F 82 16 107/62 97 Room Air 09/06/24 07:54 09/06/24 07:54 09/06/24 07:54 09/06/24 07:54 09/06/24 07:54 09/06/24 07:54 Oxygen Delivery Method Room Air Weight: 151 lb Body Mass Index (BMI) 22.3 Intake & Output: Intake and Output for Last 24 Hours 09/04/24 09/05/24 09/06/24 23:59 23:59 23:59 Intake Total 1500.21 / 1500.21 360 / 360 240 / 240 Balance 1500.21 / 1500.21 360 / 360 240 / 240 Lab / Micro Data 09/06/24 05:25 09/06/24 05:25 Labs: Laboratory Results - last 24 hr 09/06/24 05:25: WBC 17.7 H, RBC 5.10, Hgb 13.9, Hct 42.1, MCV 82.5, MCH 27.3, MCHC 33.0, RDW Std Deviation 42.1, RDW Coeff of Cel[place] 14.0, Plt Count 626 H, MPV 8.6, Immature Gran % (Auto) 0.500, Neut % (Auto) 74.1 H, Lymph % (Auto) 10.5 L, [place] % (Auto) 12.2 H, Eos % (Auto) 2.2, Baso % (Auto) 0.5, Absolute Neuts (auto) 13.1 H, Absolute Lymphs (auto) 1.86, Nucleated RBC % 0, Differential Comment COMMENT, Diff Path Review May foll, Sodium 139, Potassium 3.9, Chloride 107, Carbon Dioxide 26.0, Anion Gap 6, BUN 9, Creatinine 0.66 L, Estim Creat Clear Calc 89.18, Est GFR (MDRD) Af Amer 156, Est GFR (MDRD) Non-Af 129, BUN/Creatinine Ratio 13.7, Glucose 102, Calcium 8.9 Physical Exam Narrative Seen and examined. Patient does not have abdominal pain. Is diet has been advanced. Patient has leukocytosis persistent mainly neutrophilia along with thrombocythemia. Physical exam General: Alert, Oriented x3, Cooperative HEENT: Atraumatic, PERRLA, EOMI, Normocephalic Oral: No Gingival or Mucosal Lesions/ Ulcerations Neck: Supple, No JVD, Negative Carotid Bruits Chest wall/Lungs: Air entry diminished in bilateral lung bases. No crepitation/rhonchi Cardiovascular: Regular rate, Regular Rhythm, Normal S1, Normal S2, No M/G/R Abdomen: Bowel Sounds Present, Soft, Non Tender, Non-Distended. No rebound tenderness. : No dysuria. No renal angle tenderness. No suprapubic tenderness. Extremities: No edema, Capillary Refill Less than 3 Seconds Skin: No rashes, No breakdown Musculoskeletal: No Tenderness to Palpation of Joints or Extremities Neurological: Cranial nerves II-XII grossly intact, DTR 2+/4. No acute focal neurological deficit. Psych/Mental Status: Normal Affect, Appropriate. Assessment & Plan Assessment/Plan (1) Abscess of sigmoid colon due to diverticulitis: PLAN: Plan Patient is a 64-year-old male who presented [facility] ED on 09/01/2024 with worsening abdominal pain. 1. Acute complicated sigmoid diverticulitis ? Surgery following. CT abdomen pelvis on admit showed complicated sigmoid diverticulitis with associated pericolonic abscess inflammatory changes. WBC count elevated on admit. Started on IV Zosyn on admission and patient had clinical improvement, but WBC count has remained elevated. Repeat CT abdomen pelvis on 09/04 showed persistent acute sigmoid diverticulitis with persistent small walled off fluid collection suggestive of abscess showing 2.4 x 2 cm. Per surgery, switched to IV meropenem on 09/04. Diet escalated to full liquid diet on 09/04. Surgery noted that fluid collection is more consistent with a phlegmon so no drain placement needed. No acute surgical indication currently. Continue to monitor and appreciate surgical recommendations on timing of discharge. 09/05: Surgical note reviewed. Patient has leukocytosis but does not have abdominal pain tenderness. Moving his bowel. Clinically speaking, patient can be discharged probably tomorrow. 09/06: Leukocytosis, TLC 17.7 thousand, neutrophils 74%, lymphocyte 10.5%, monocytosis 12.2%. Immature granulocytes normal 0.5%. Clinically patient does not have pain, tenderness, rebound tenderness guarding or rigidity. Tolerating soft diet. Discussed with the surgeon wants to keep the patient for further monitoring of WBC count. 2. Chronic alcohol dependence ? Reported drinking 6 beers daily. Placed on DT precautions on admit, has not triggered this. Will continue to monitor. 3. Tobacco dependence ? Encourage cessation. Nicotine patch placed per patient request. DVT prophylaxis: Heparin subcu CODE STATUS: Full code, verified Expected disposition: Home, TBD Charges/Coding Visit Charges Inpatient E&M: 20490 Subs Hosp L2
--- NOTE | 2024-09-06 12:10 | CASEMGMT ---
LANI CM into pt room, pt sitting up in chair. Pt states he was going to get to go home but he just got off the phone with and he is not able to go yet. Pt still denying any homegoing needs at this time.
[2024-09-06 14:42] LABS: Pathologist Review Reviewed
[2024-09-06 20:18] VITALS: BP 120/76; PULSE 80; RESP 16; TEMP 37.2; O2SAT 97
[2024-09-07 00:04] LABS: Mucous, Urine 0 SEEN /hpf (<or=2+); Red Blood Cells-Urine 0 SEEN /hpf (0-5); Squamous Epithelial Cells - UA 0 SEEN /hpf (0-5)
[2024-09-07 00:16] LABS: Color, Urine Yellow (Yellow); Glucose, Dipstick Normal (Normal); Ketone-Dipstick Negative (Negative); Leukocyte Esterase-Dipstick 100 /ul (Negative); Nitrite-Dipstick Negative (Negative); Occult Blood-Urine 10 /ul (Negative); Protein-Dipstick 15 mg/dl (Negative); Specific Gravity, Urine 1.015 (1.002-1.030); Urine Bilirubin Dipstick Negative (Negative); Urine Clarity Clear (Clear); Urine Urobilinogen Normal (Normal); Urine pH 6.5 (5.0 - 8.0)
[2024-09-07 01:34] LABS: Bacteria RARE /hpf (None Seen); White Blood Cells 0-5 SEEN /hpf (0-5)
[2024-09-07] MEDS: 0.9% Saline Lock 10 ML Syringe IV (05:16)
[2024-09-07] MEDS: Meropenem 1 GM in 0.9% Normal Saline (100mL MB+) 100 ML IV ×3 (05:16→22:08)
[2024-09-07 05:23] VITALS: BP 117/76; PULSE 72; RESP 16; TEMP 37; O2SAT 96
[2024-09-07 06:22] LABS: Absolute Lymphocyte Count 1.82 X10^3/uL (0.83-4.51); Absolute Neutrophil Count 13.5 X10^3/uL (2.0-7.7); Basophil# 0.09 X10^3/uL; Basophil% 0.5 % (0-1); Eosinophil# 0.38 X10^3/uL; Eosinophils% 2.1 % (0-5); Hematocrit 40.6 % (40-54); Hemoglobin 13.5 g/dL (13.0-16.5); Lymphocyte # 1.82 X10^3/ul (0.83-4.51); Lymphocyte % 9.9 % (19-41); Mean Corp Hgb Conc 33.3 g/dL (32-36); Mean Corpuscular Hgb 27.3 pg (27.0-32.0); Mean Corpuscular Volume 82.2 fL (80-94); Mean Platelet Vol. 8.5 fl (6.2-12.0); Monocyte# 2.54 X10^3/uL; Monocyte% 13.8 % (0-10); NRBC Flagged by Analyzer 0 % (0-5); Neutrophil # 13.49 X10^3/uL (2.7-7.7); Neutrophil % 73.1 % (47-70); POSITIVE DIFFERENTIAL YES; Platelet Count 631 K/mm3 (150-450); RBC Distribution Width CV 14.1 % (11.6-14.6); RBC Distribution Width SD 42.1 fl (35.1-43.9); Red Blood Count 4.94 M/mm3 (4.6-6.2); White Blood Count 18.4 K/mm3 (4.4-11.0)
[2024-09-07 06:55] LABS: Differential Indicated SCAN CRITERIA MET
[2024-09-07 06:57] LABS: Anion Gap 4 (5-15); BUN 10 mg/dL (7-18); BUN/Creat Ratio 15.8 RATIO (10-20); Calcium,Total 8.9 mg/dL (8.5-10.1); Chloride 108 mmol/L (98-107); Creatinine, Serum 0.63 mg/dL (0.70-1.30); EST Glomerular Filtration Rate 135 mL/min (>60); Est Glom Filt Rate - Afr Amer 163 mL/min (>60); Estimated Creatinine Clearance 89.18 ml/min; Glucose 104 mg/dL (74-106); Potassium 3.9 mmol/L (3.5-5.1); Sodium Level 138 mmol/L (136-145)
[2024-09-07] MEDS: Thiamine Hydrochloride 100 MG Tablet PO (07:41)
[2024-09-07] MEDS: Folic Acid 1 MG Tablet PO (07:41)
[2024-09-07 08:33] LABS: Differential Comment SCANNED
[2024-09-07 08:51] VITALS: BP 124/76; PULSE 80; RESP 16; TEMP 36.6; O2SAT 100
--- NOTE | 2024-09-07 10:58 | CT_ITS ---
We are attempting to reach an attending provider to discuss findings. An addendum with communication details will be sent when the communication is complete. EXAM: CT ABDOMEN AND PELVIS WITH INTRAVENOUS CONTRAST CLINICAL INDICATION: leukocytosis TECHNIQUE: Helically acquired images were obtained of the abdomen and pelvis with intravenous contrast. This CT exam was performed using one or more of the following dose reduction techniques: automated exposure control, adjustment of the mA and/or kV according to patient size, and/or use of iterative reconstruction technique. CONTRAST: Oral and amp; IV Gastrografin and amp; 100mL Isovue-[id number] COMPARISON: 09/04/2024 FINDINGS: LOWER THORAX: Pulmonary granulomas are present. No cardiomegaly. No significant pericardial effusion. ABDOMEN: LIVER: No significant abnormality. Homogeneous. No focal mass. GALLBLADDER AND BILE DUCTS: No significant abnormality. No calcified gallstones. No gallbladder distention or wall edema. No intra- or extrahepatic biliary ductal dilation. PANCREAS: No significant abnormality. No focal cystic or solid mass. SPLEEN: No significant abnormality. Normal size without focal cystic or solid mass. ADRENALS: No significant abnormality. No nodules. KIDNEYS AND URETERS: No significant abnormality. Normal renal size and position. No hydronephrosis. STOMACH AND BOWEL: Localized perforation of the sigmoid colon with 4.7 cm pericolonic abscess. Extensive colonic diverticulosis. Sigmoid colonic wall thickening with pericolonic inflammation indicating acute diverticulitis. No stomach or bowel distention. PELVIS: APPENDIX: No evidence of acute appendicitis. BLADDER: No significant abnormality. REPRODUCTIVE: Normal as visualized. No mass. ABDOMEN and PELVIS: INTRAPERITONEAL SPACE: No additional evidence of pneumoperitoneum. Air within the abscess in the mid abdomen adjacent to the sigmoid colon. Inflammatory changes in the right lower quadrant mesentery. BONES/JOINTS: No significant abnormality. No suspicious lytic or blastic abnormality. SOFT TISSUES: No significant abnormality. No discrete abdominal or pelvic wall hernia. VASCULATURE: Atherosclerosis of the aorta and its branch vessels. Abdominal aorta is non-dilated. LYMPH NODES: No significant abnormality. No enlarged lymph nodes. CT/Abdomen/Pelvis WITH Contrast IMPRESSION: Perforated sigmoid diverticulitis with pericolonic abscess. Electronically Signed: Joey Lafleur DO at 13:14 EST ,
--- NOTE | 2024-09-07 11:33 | PN.SURG_ITS ---
Subjective Subjective Patient clinically stable overnight. He continues to deny any type of abdominal pain. His only complaint is some burning with urination. UA overnight was unremarkable. Patient remains on antibiotics. There was a slight increase in white count overnight to 18.7. Patient expresses his displeasure for continuing to be admitted despite no significant abdominal pain. Patient wishes for diet advancement. We did discuss repeating CT scan today given the elevation in white count Objective Data Objective Data Vital Signs: Vital Signs Temp Pulse Resp BP Pulse Ox O2 Del Method 98 F 80 16 124/76 H 100 Room Air 09/07/24 08:51 09/07/24 08:51 09/07/24 08:51 09/07/24 08:51 09/07/24 08:51 09/07/24 08:51 Oxygen Delivery Method Room Air Weight: 151 lb Body Mass Index (BMI) 22.3 Intake & Output: Intake and Output for Last 24 Hours 09/05/24 09/06/24 09/07/24 23:59 23:59 23:59 Intake Total 360 / 360 360 / 360 240 / 240 Balance 360 / 360 360 / 360 240 / 240 Lab / Micro Data 09/07/24 05:55 09/07/24 05:55 Labs: Laboratory Results - last 24 hr 09/05/24 06:58: Diff Path Review Reviewed 09/06/24 23:55: Urine Color Yellow, Urine Clarity Clear, Urine pH 6.5, Ur Specific [place] 1.015, Urine Protein 15 H, Urine Glucose (UA) Normal, Urine Ketones Negative, Urine Occult Blood 10 H, Urine Nitrite Negative, Urine Bilirubin Negative, Urine Urobilinogen Normal, Ur Leukocyte Esterase 100 H, Urine RBC 0 SEEN, Urine WBC 0-5 SEEN, Ur Squamous Epith Cells 0 SEEN, Urine Bacteria RARE, Urine Mucus 0 SEEN 09/07/24 05:55: WBC 18.4 H, RBC 4.94, Hgb 13.5, Hct 40.6, MCV 82.2, MCH 27.3, MCHC 33.3, RDW Std Deviation 42.1, RDW Coeff of Celina 14.1, Plt Count 631 H, MPV 8.5, Immature Gran % (Auto) 0.600, Neut % (Auto) 73.1 H, Lymph % (Auto) 9.9 L, M anthony % (Auto) 13.8 H, Eos % (Auto) 2.1, Baso % (Auto) 0.5, Absolute Neuts (auto) 13.5 H, Absolute Lymphs (auto) 1.82, Nucleated RBC % 0, Differential Comment SCANNED, Diff Path Review May foll, Sodium 138, Potassium 3.9, Chloride 108 H, Carbon Dioxide 27.0, Anion Gap 4 L, BUN 10, Creatinine 0.63 L, Estim Creat Clear Calc 89.18, Est GFR (MDRD) Af Amer 163, Est GFR (MDRD) Non-Af 135, BUN/Creatinine Ratio 15.8, Glucose 104, Calcium 8.9 Physical Exam Narrative He is alert and oriented x 3. He is in no acute distress. Abdomen is soft, nontender nondistended. Assessment & Plan Assessment/Plan (1) Abscess of sigmoid colon due to diverticulitis: PLAN: Plan The patient is a 64-year-old male admitted with diverticulitis of the sigmoid colon along with 2 cm pelvic abscess with air-fluid levels. Patient clinically states that he is not having any significant abdominal pain. Patient has persistent leukocytosis with slight increase in white count since yesterday. My plan is to repeat CT scan today to evaluate for worsening diverticulitis in light of persistent leukocytosis. Continue IV antibiotics. Patient wishes for diet advancement. Will await results of CT scan. Charges/Coding Visit Charges Inpatient E&M: 84079 Subs Hosp L2
[2024-09-07 12:29] VITALS: BP 142/77; PULSE 65; RESP 16; TEMP 36.8; O2SAT 100
--- NOTE | 2024-09-07 14:07 | PN_ITS ---
Progress Note Results of CT scan were discussed with on-call radiologist. The previous 2 to 2.4 cm abscess is now approximately 4.7 cm in size. This likely explains the persistent leukocytosis. Radiologist felt that this might be amenable to CT- guided drainage based on size but trajectory of percutaneous drainage may be challenging. These results were discussed with the patient as well as his this afternoon. I explained that IR drainage would be the most prudent next step. Will discuss possible drainage with radiology Monday morning. If this is not amenable to drainage this may ultimately require surgical intervention with probable colostomy. Patient and family are understanding of this possibility
--- NOTE | 2024-09-07 14:27 | PN.HOSP_ITS ---
Reason for Visit Reason for Visit: Diagnoses Elevated white blood cell count, unspecified (09/01/24) Diverticulitis of large intestine with perforation and abscess without bleeding (09/01/24) Objective Data Objective Data Vital Signs: Vital Signs Temp Pulse Resp BP Pulse Ox O2 Del Method 98.2 F 65 16 142/77 H 100 Room Air 09/07/24 12:29 09/07/24 12:29 09/07/24 12:29 09/07/24 12:29 09/07/24 12:29 09/07/24 13:51 Oxygen Delivery Method Room Air Weight: 151 lb Body Mass Index (BMI) 22.3 Intake & Output: Intake and Output for Last 24 Hours 09/05/24 09/06/24 09/07/24 23:59 23:59 23:59 Intake Total 360 / 360 360 / 360 540 / 540 Balance 360 / 360 360 / 360 540 / 540 Lab / Micro Data 09/07/24 05:55 09/07/24 05:55 Labs: Laboratory Results - last 24 hr 09/05/24 06:58: Diff Path Review Reviewed 09/06/24 23:55: Urine Color Yellow, Urine Clarity Clear, Urine pH 6.5, Ur Specific [place] 1.015, Urine Protein 15 H, Urine Glucose (UA) Normal, Urine Ketones Negative, Urine Occult Blood 10 H, Urine Nitrite Negative, Urine Bilirubin Negative, Urine Urobilinogen Normal, Ur Leukocyte Esterase 100 H, Urine RBC 0 SEEN, Urine WBC 0-5 SEEN, Ur Squamous Epith Cells 0 SEEN, Urine Bacteria RARE, Urine Mucus 0 SEEN 09/07/24 05:55: WBC 18.4 H, RBC 4.94, Hgb 13.5, Hct 40.6, MCV 82.2, MCH 27.3, MCHC 33.3, RDW Std Deviation 42.1, RDW Coeff of Celina 14.1, Plt Count 631 H, MPV 8.5, Immature Gran % (Auto) 0.600, Neut % (Auto) 73.1 H, Lymph % (Auto) 9.9 L, M anthony % (Auto) 13.8 H, Eos % (Auto) 2.1, Baso % (Auto) 0.5, Absolute Neuts (auto) 13.5 H, Absolute Lymphs (auto) 1.82, Nucleated RBC % 0, Differential Comment SCANNED, Diff Path Review May foll, Sodium 138, Potassium 3.9, Chloride 108 H, Carbon Dioxide 27.0, Anion Gap 4 L, BUN 10, Creatinine 0.63 L, Estim Creat Clear Calc 89.18, Est GFR (MDRD) Af Amer 163, Est GFR (MDRD) Non-Af 135, BUN/Creatinine Ratio 15.8, Glucose 104, Calcium 8.9 Radiography Diagnostic Testing: Radiology Impression Abdomen/Pelvis CT 09/07/24 10:58 IMPRESSION: Perforated sigmoid diverticulitis with pericolonic abscess. Electronically Signed: Joey Lafleur DO at 13:14 EST , ADDENDUM: 09/07/24 1343 IMPRESSION: undefined ADDENDUM: 09/07/24 1347 IMPRESSION: undefined Physical Exam Narrative Seen and examined. Patient does not have abdominal pain. Is diet has been advanced. Patient has leukocytosis persistent mainly neutrophilia along with thrombocythemia. Had repeat CT scan. Physical exam General: Alert, Oriented x3, Cooperative HEENT: Atraumatic, PERRLA, EOMI, Normocephalic Oral: No Gingival or Mucosal Lesions/ Ulcerations Neck: Supple, No JVD, Negative Carotid Bruits Chest wall/Lungs: Air entry diminished in bilateral lung bases. No crepitation/rhonchi Cardiovascular: Regular rate, Regular Rhythm, Normal S1, Normal S2, No M/G/R Abdomen: Bowel Sounds Present, Soft, Non Tender, Non-Distended. No rebound tenderness. : No dysuria. No renal angle tenderness. No suprapubic tenderness. Extremities: No edema, Capillary Refill Less than 3 Seconds Skin: No rashes, No breakdown Musculoskeletal: No Tenderness to Palpation of Joints or Extremities Neurological: Cranial nerves II-XII grossly intact, DTR 2+/4. No acute focal neurological deficit. Psych/Mental Status: Normal Affect, Appropriate. Assessment & Plan Assessment/Plan (1) Abscess of sigmoid colon due to diverticulitis: PLAN: Plan Patient is a 64-year-old male who presented [facility] ED on 09/01/2024 with worsening abdominal pain. 1. Acute complicated sigmoid diverticulitis ? Surgery following. CT abdomen pelvis on admit showed complicated sigmoid diverticulitis with associated pericolonic abscess inflammatory changes. WBC count elevated on admit. Started on IV Zosyn on admission and patient had clinical improvement, but WBC count has remained elevated. Repeat CT abdomen pelvis on 09/04 showed persistent acute sigmoid diverticulitis with persistent small walled off fluid collection suggestive of abscess showing 2.4 x 2 cm. Per surgery, switched to IV meropenem on 09/04. Diet escalated to full liquid diet on 09/04. Surgery noted that fluid collection is more consistent with a phlegmon so no drain placement needed. No acute surgical indication currently. Continue to monitor and appreciate surgical recommendations on timing of discharge. 09/05: Surgical note reviewed. Patient has leukocytosis but does not have abdominal pain tenderness. Moving his bowel. Clinically speaking, patient can be discharged probably tomorrow. 09/06: Leukocytosis, TLC 17.7 thousand, neutrophils 74%, lymphocyte 10.5%, monocytosis 12.2%. Immature granulocytes normal 0.5%. Clinically patient does not have pain, tenderness, rebound tenderness guarding or rigidity. Tolerating soft diet. Discussed with the surgeon wants to keep the patient for further monitoring of WBC count. 09/07: Repeat CT scan shows perforated sigmoid diverticulitis with pericolonic abscess. Abscess size is increased to 4.7 cm. Extensive colonic diverticular disease with wall thickening and pericolonic inflammation. 2. Chronic alcohol dependence ? Reported drinking 6 beers daily. Placed on DT precautions on admit, has not triggered this. Will continue to monitor. 3. Tobacco dependence ? Encourage cessation. Nicotine patch placed per patient request. DVT prophylaxis: Heparin subcu CODE STATUS: Full code, verified Expected disposition: Home, TBD Charges/Coding Visit Charges Inpatient E&M: 08657 Subs Hosp L2
[2024-09-07 16:41] VITALS: BP 111/65; PULSE 78; RESP 16; TEMP 36.9; O2SAT 97
[2024-09-07 22:15] VITALS: BP 119/75; PULSE 75; RESP 16; TEMP 36.2; O2SAT 98
[2024-09-08 05:32] LABS: Absolute Lymphocyte Count 1.67 X10^3/uL (0.83-4.51); Absolute Neutrophil Count 14.8 X10^3/uL (2.0-7.7); Basophil# 0.08 X10^3/uL; Basophil% 0.4 % (0-1); Eosinophil# 0.47 X10^3/uL; Eosinophils% 2.4 % (0-5); Hematocrit 39.1 % (40-54); Hemoglobin 12.5 g/dL (13.0-16.5); Lymphocyte # 1.67 X10^3/ul (0.83-4.51); Lymphocyte % 8.4 % (19-41); Mean Corpuscular Hgb 26.5 pg (27.0-32.0); Mean Corpuscular Volume 82.8 fL (80-94); Mean Platelet Vol. 8.5 fl (6.2-12.0); Monocyte# 2.79 X10^3/uL; NRBC Flagged by Analyzer 0 % (0-5); Neutrophil # 14.75 X10^3/uL (2.7-7.7); Neutrophil % 74.2 % (47-70); POSITIVE DIFFERENTIAL YES; Platelet Count 627 K/mm3 (150-450); RBC Distribution Width CV 13.9 % (11.6-14.6); RBC Distribution Width SD 41.9 fl (35.1-43.9); Red Blood Count 4.72 M/mm3 (4.6-6.2); White Blood Count 19.9 K/mm3 (4.4-11.0)
[2024-09-08 05:34] LABS: Differential Indicated SCAN CRITERIA MET
[2024-09-08] MEDS: Meropenem 1 GM in 0.9% Normal Saline (100mL MB+) 100 ML IV ×3 (05:36→21:34)
[2024-09-08] MEDS: 0.9% Saline Lock 10 ML Syringe IV ×2 (05:36→21:34)
[2024-09-08 05:41] VITALS: BP 116/81; PULSE 81; RESP 16; TEMP 36.1; O2SAT 97
[2024-09-08 05:52] LABS: Anion Gap 4 (5-15); BUN 12 mg/dL (7-18); BUN/Creat Ratio 16.7 RATIO (10-20); Calcium,Total 8.7 mg/dL (8.5-10.1); Chloride 106 mmol/L (98-107); Creatinine, Serum 0.72 mg/dL (0.70-1.30); EST Glomerular Filtration Rate 116 mL/min (>60); Est Glom Filt Rate - Afr Amer 141 mL/min (>60); Estimated Creatinine Clearance 89.18 ml/min; Glucose 102 mg/dL (74-106); Potassium 3.9 mmol/L (3.5-5.1); Sodium Level 138 mmol/L (136-145)
[2024-09-08 07:53] LABS: Differential Comment SCANNED
[2024-09-08 09:20] VITALS: BP 133/66; PULSE 90; RESP 18; TEMP 36.9; O2SAT 98
[2024-09-08] MEDS: Thiamine Hydrochloride 100 MG Tablet PO (09:23)
[2024-09-08] MEDS: Folic Acid 1 MG Tablet PO (09:24)
--- NOTE | 2024-09-08 10:52 | PCM.PN.SRG ---
Subjective Subjective Patient without any new issues or complaints. He denies any abdominal pain whatsoever. He tolerated diet advancement and states that his mental status is much improved since being able to eat regular food. White count today increased again to 20. Objective Data Objective Data Vital Signs: Vital Signs Temp Pulse Resp BP Pulse Ox O2 Del Method 98.5 F 90 18 133/66 H 98 Room Air 09/08/24 09:20 09/08/24 09:20 09/08/24 09:20 09/08/24 09:20 09/08/24 09:20 09/08/24 09:20 Oxygen Delivery Method Room Air Weight: 151 lb Body Mass Index (BMI) 22.3 Intake & Output: Intake and Output for Last 24 Hours 09/06/24 09/07/24 09/08/24 23:59 23:59 23:59 Intake Total 360 / 360 1010 / 1010 120 / 120 Balance 360 / 360 1010 / 1010 120 / 120 Lab / Micro Data 09/08/24 05:14 09/08/24 05:14 Labs: Laboratory Results - last 24 hr 09/08/24 05:14: WBC 19.9 H, RBC 4.72, Hgb 12.5 L, Hct 39.1 L, MCV 82.8, MCH 26.5 L, MCHC 32.0, RDW Std Deviation 41.9, RDW Coeff of Celina 13.9, Plt Count 627 H, MPV 8.5, Immature Gran % (Auto) 0.600, Neut % (Auto) 74.2 H, Lymph % (Auto) 8.4 L, [place] % (Auto) 14.0 H, Eos % (Auto) 2.4, Baso % (Auto) 0.4, Absolute Neuts (auto) 14.8 H, Absolute Lymphs (auto) 1.67, Nucleated RBC % 0, Differential Comment SCANNED, Diff Path Review February foll, Sodium 138, Potassium 3.9, Chloride 106, Carbon Dioxide 28.0, Anion Gap 4 L, BUN 12, Creatinine 0.72, Estim Creat Clear Calc 89.18, Est GFR (MDRD) Af Amer 141, Est GFR (MDRD) Non-Af 116, BUN/Creatinine Ratio 16.7, Glucose 102, Calcium 8.7 Radiography Diagnostic Testing: Radiology Impression Abdomen/Pelvis CT 11/09/24 10:58 IMPRESSION: Perforated sigmoid diverticulitis with pericolonic abscess. Electronically Signed: Joey Lafleur DO at 13:14 EST , ADDENDUM: 09/07/24 1345 IMPRESSION: undefined ADDENDUM: 09/07/241346 IMPRESSION: undefined Physical Exam Narrative He is alert and oriented x 3. He is in no acute distress. Abdomen is soft nontender nondistended There is no tenderness in the left lower quadrant even with deep palpation Assessment & Plan Assessment/Plan (1) Abscess of sigmoid colon due to diverticulitis: PLAN: Plan The patient is a 64-year-old male who was admitted with sigmoid diverticulitis and abscess. He had a persistent leukocytosis despite IV antibiotics. This prompted repeat CT scan yesterday and showed that his abscess had increased to 4.7 cm in size but clinically he remains surprisingly asymptomatic. I am recommending attempted IR drainage. Will plan to discuss with radiology tomorrow morning. Will make n.p.o. after midnight and check coags. Patient and his are agreeable to this plan Charges/Coding Visit Charges Inpatient E&M: 21986 Subs Hosp L2
--- NOTE | 2024-09-08 14:35 | PCM.PN.HOSP ---
Reason for Visit Reason for Visit: Diagnoses Elevated white blood cell count, unspecified (09/01/24) Diverticulitis of large intestine with perforation and abscess without bleeding (09/01/24) Objective Data Objective Data Vital Signs: Vital Signs Temp Pulse Resp BP Pulse Ox O2 Del Method 98.5 F 90 18 133/66 H 98 Room Air 09/08/24 09:20 09/08/24 09:20 09/08/24 09:20 09/08/24 09:20 09/08/24 09:20 09/08/24 09:20 Oxygen Delivery Method Room Air Weight: 151 lb Body Mass Index (BMI) 22.3 Intake & Output: Intake and Output for Last 24 Hours 09/06/24 09/07/24 09/08/24 23:59 23:59 23:59 Intake Total 360 / 360 1010 / 1010 240 / 240 Balance 360 / 360 1010 / 1010 240 / 240 Lab / Micro Data 09/08/24 05:14 09/08/24 05:14 Labs: Laboratory Results - last 24 hr 09/08/24 05:14: WBC 19.9 H, RBC 4.72, Hgb 12.5 L, Hct 39.1 L, MCV 82.8, MCH 26.5 L, MCHC 32.0, RDW Std Deviation 41.9, RDW Coeff of Celina 13.9, Plt Count 627 H, MPV 8.5, Immature Gran % (Auto) 0.600, Neut % (Auto) 74.2 H, Lymph % (Auto) 8.4 L, [place] % (Auto) 14.0 H, Eos % (Auto) 2.4, Baso % (Auto) 0.4, Absolute Neuts (auto) 14.8 H, Absolute Lymphs (auto) 1.67, Nucleated RBC % 0, Differential Comment SCANNED, Diff Path Review February, Sodium 138, Potassium 3.9, Chloride 106, Carbon Dioxide 28.0, Anion Gap 4 L, BUN 12, Creatinine 0.72, Estim Creat Clear Calc 89.18, Est GFR (MDRD) Af Amer 141, Est GFR (MDRD) Non-Af 116, BUN/Creatinine Ratio 16.7, Glucose 102, Calcium 8.7 Micro: Microbiology 09/06/24 23:55 Urine, Clean Catch Urine Culture - Preliminary Culture exhibits no growth. Physical Exam Narrative Seen and examined. Patient does not have abdominal pain. Patient has leukocytosis persistent mainly neutrophilia along with thrombocythemia. Had repeat CT scan which shows increase in the size of the abscess. Physical exam General: Alert, Oriented x3, Cooperative HEENT: Atraumatic, PERRLA, EOMI, Normocephalic Oral: No Gingival or Mucosal Lesions/ Ulcerations Neck: Supple, No JVD, Negative Carotid Bruits Chest wall/Lungs: Air entry diminished in bilateral lung bases. No crepitation/rhonchi Cardiovascular: Regular rate, Regular Rhythm, Normal S1, Normal S2, No M/G/R Abdomen: Bowel Sounds Present, Soft, Non Tender, Non-Distended. No rebound tenderness. : No dysuria. No renal angle tenderness. No suprapubic tenderness. Extremities: No edema, Capillary Refill Less than 3 Seconds Skin: No rashes, No breakdown Musculoskeletal: No Tenderness to Palpation of Joints or Extremities Neurological: Cranial nerves II-XII grossly intact, DTR 2+/4. No acute focal neurological deficit. Psych/Mental Status: Normal Affect, Appropriate. Assessment & Plan Assessment/Plan (1) Abscess of sigmoid colon due to diverticulitis: PLAN: Plan Patient is a 64-year-old male who presented [facility] ED on 09/01/2024 with worsening abdominal pain. 1. Acute complicated sigmoid diverticulitis ? Surgery following. CT abdomen pelvis on admit showed complicated sigmoid diverticulitis with associated pericolonic abscess inflammatory changes. WBC count elevated on admit. Started on IV Zosyn on admission and patient had clinical improvement, but WBC count has remained elevated. Repeat CT abdomen pelvis on 09/04 showed persistent acute sigmoid diverticulitis with persistent small walled off fluid collection suggestive of abscess showing 2.4 x 2 cm. Per surgery, switched to IV meropenem on 09/04. Diet escalated to full liquid diet on 09/04. Surgery noted that fluid collection is more consistent with a phlegmon so no drain placement needed. No acute surgical indication currently. Continue to monitor and appreciate surgical recommendations on timing of discharge. 09/05: Surgical note reviewed. Patient has leukocytosis but does not have abdominal pain tenderness. Moving his bowel. Clinically speaking, patient can be discharged probably tomorrow. 09/06: Leukocytosis, TLC 17.7 thousand, neutrophils 74%, lymphocyte 10.5%, monocytosis 12.2%. Immature granulocytes normal 0.5%. Clinically patient does not have pain, tenderness, rebound tenderness guarding or rigidity. Tolerating soft diet. Discussed with the surgeon wants to keep the patient for further monitoring of WBC count. 09/07: Repeat CT scan shows perforated sigmoid diverticulitis with pericolonic abscess. Abscess size is increased to 4.7 cm from 2.5 cm. Extensive colonic diverticular disease with wall thickening and pericolonic inflammation. 09/08: Since increase in the size was noticed plan for IR CT-guided tube/catheter drainage of the abscess. Leukocytosis increased to 20,000. Patient is still asymptomatic. 2. Chronic alcohol dependence ? Reported drinking 6 beers daily. Placed on DT precautions on admit, has not triggered this. Will continue to monitor. 3. Tobacco dependence ? Encourage cessation. Nicotine patch placed per patient request. DVT prophylaxis: Heparin subcu CODE STATUS: Full code, verified Expected disposition: Home, TBD Charges/Coding Visit Charges Inpatient E&M: 83754 Subs Hosp L2
[2024-09-08 15:02] VITALS: BP 110/62; PULSE 78; RESP 18; TEMP 37.2; O2SAT 97
[2024-09-08 21:45] VITALS: BP 131/93; PULSE 78; RESP 16; TEMP 37.2; O2SAT 98
[2024-09-09] MEDS: Meropenem 1 GM in 0.9% Normal Saline (100mL MB+) 100 ML IV (05:37)
[2024-09-09] MEDS: 0.9% Saline Lock 10 ML Syringe IV ×2 (05:38→15:54)
[2024-09-09 05:43] VITALS: BP 102/62; PULSE 70; RESP 16; TEMP 37.1; O2SAT 98
[2024-09-09 07:23] LABS: Absolute Lymphocyte Count 1.79 X10^3/uL (0.83-4.51); Absolute Neutrophil Count 14.4 X10^3/uL (2.0-7.7); Basophil# 0.08 X10^3/uL; Basophil% 0.4 % (0-1); Eosinophils% 2.1 % (0-5); Hematocrit 40.9 % (40-54); Hemoglobin 13.4 g/dL (13.0-16.5); Lymphocyte # 1.79 X10^3/ul (0.83-4.51); Lymphocyte % 9.4 % (19-41); Mean Corp Hgb Conc 32.8 g/dL (32-36); Mean Corpuscular Volume 82.3 fL (80-94); Mean Platelet Vol. 8.5 fl (6.2-12.0); Monocyte# 2.25 X10^3/uL; Monocyte% 11.9 % (0-10); NRBC Flagged by Analyzer 0 % (0-5); Neutrophil # 14.36 X10^3/uL (2.7-7.7); Neutrophil % 75.7 % (47-70); POSITIVE DIFFERENTIAL YES; Platelet Count 682 K/mm3 (150-450); RBC Distribution Width SD 41.8 fl (35.1-43.9); Red Blood Count 4.97 M/mm3 (4.6-6.2)
[2024-09-09 07:26] LABS: Differential Indicated SCAN CRITERIA MET
[2024-09-09 07:47] LABS: International Normalized Ratio 1.1; Prothrombin Time (Protime)PT. 13.9 SECONDS (11.7-14.9)
[2024-09-09 08:08] LABS: Platelet Estimate MOD INC (ADEQ)
[2024-09-09 08:14] LABS: Anion Gap 6 (5-15); BUN 13 mg/dL (7-18); BUN/Creat Ratio 17.5 RATIO (10-20); Calcium,Total 8.9 mg/dL (8.5-10.1); Chloride 107 mmol/L (98-107); Creatinine, Serum 0.74 mg/dL (0.70-1.30); EST Glomerular Filtration Rate 113 mL/min (>60); Est Glom Filt Rate - Afr Amer 136 mL/min (>60); Estimated Creatinine Clearance 89.18 ml/min; Glucose 107 mg/dL (74-106); Potassium 3.6 mmol/L (3.5-5.1); Sodium Level 138 mmol/L (136-145)
[2024-09-09 10:30] VITALS: BP 114/73; PULSE 79; RESP 18; TEMP 36.8; O2SAT 99
--- NOTE | 2024-09-09 11:00 | PN.SURG_ITS ---
Subjective Subjective Patient continues to deny any significant abdominal pain. His white blood cell count did decrease very slightly to 19 today. We reached out to radiology earlier this morning to discuss possible CT-guided drain placement. We found that we did not have a radiologist onsite today as they are working remotely. Radiology did review the images and they did not feel that they would be able to drain this particular abscess based on location. This was relayed to the patient and his . They expressed considerable displeasure and frustration with the situation. Objective Data Objective Data Vital Signs: Vital Signs Temp Pulse Resp BP Pulse Ox O2 Del Method 98.3 F 79 18 114/73 99 Room Air 09/09/24 10:30 09/09/24 10:30 09/09/24 10:30 09/09/24 10:30 09/09/24 10:30 09/09/24 10:30 Oxygen Delivery Method Room Air Weight: 151 lb Body Mass Index (BMI) 22.3 Intake & Output: Intake and Output for Last 24 Hours 09/07/24 09/08/24 09/09/24 23:59 23:59 23:59 Intake Total 1010 / 1010 1360 / 1360 240 / 240 Balance 1010 / 1010 1360 / 1360 240 / 240 Lab / Micro Data 09/09/24 07:11 09/09/24 07:11 Labs: Laboratory Results - last 24 hr 09/09/24 07:11: WBC 19.0 H, RBC 4.97, Hgb 13.4, Hct 40.9, MCV 82.3, MCH 27.0, MCHC 32.8, RDW Std Deviation 41.8, RDW Coeff of Celina 14.0, Plt Count 682 H, MPV 8.5, Immature Gran % (Auto) 0.500, Neut % (Auto) 75.7 H, Lymph % (Auto) 9.4 L, M anthony % (Auto) 11.9 H, Eos % (Auto) 2.1, Baso % (Auto) 0.4, Absolute Neuts (auto) 14.4 H, Absolute Lymphs (auto) 1.79, Nucleated RBC % 0, Platelet Estimate MOD INC, PT 13.9, INR 1.1, Sodium 138, Potassium 3.6, Chloride 107, Carbon Dioxide 25.0, Anion Gap 6, BUN 13, Creatinine 0.74, Estim Creat Clear Calc 89.18, Est GFR (MDRD) Af Amer 136, Est GFR (MDRD) Non-Af 113, BUN/Creatinine Ratio 17.5, G lucose 107 H, Calcium 8.9 Micro: Microbiology 09/06/24 23:55 Urine, Clean Catch Urine Culture - Final Culture exhibits no growth. Physical Exam Const oriented x3; Negative for no apparent distress GI GI Narrative: Abdomen is soft and nontender Assessment & Plan Assessment/Plan (1) Abscess of sigmoid colon due to diverticulitis: PLAN: Plan The patient is a 64-year-old male who is admitted with sigmoid diverticulitis with abscess. He had a persistent leukocytosis and so a repeat CT scan was performed over the weekend. This showed that his abscess increased in size. We were hopeful that this would be amenable to percutaneous drainage through radiology however our radiology staff do not feel that this is able to be drained. Patient and his are extremely frustrated. They stated that they just want to be able to go home. The next best option would be to have infectious disease see the patient and possibly recommend long-term antibiotics whether oral or IV as an outpatient. We can certainly repeat CT scan at a later date to see if this is decreasing in size. We also stated that we can place a referral to [facility] another surrounding larger hospitals to see if they could percutaneously drain this abscess. The patient and his seem to be agreeable to this plan. This was discussed with hospitalist team as well. Charges/Coding Visit Charges Inpatient E&M: 24643 Subs Hosp L3
--- NOTE | 2024-09-09 11:40 | CASEMGMT ---
Addendum entered by Michelle Adame 09/09/24 15:45: End date for IV atb clarified with Dr. Ashton which is Sep 23. Updated rx and resent to [facility] and to [facility]. Addendum entered by Michelle Adame 09/09/24 15:44: Received benefits back from [facility]. Pt copay is $301.50 for med. Supplies will be covered at 80% until OOP max of $3000 is met, then covered at 100%. LANI GUARDADO into pt room, pt is aware of this cost and agreeable. He is aware of appt at 9am the next 2 Mondays for picc and labs. Pt states he has not yet heard from Daniel to set up time for teaching. Pt to get picc today yet per charge nurse. Addendum entered by Michelle Adame 09/09/24 14:02: TC to [facility], spoke with Jessi. Pt set up on Monday at 9am on the and per his request to do on Mondays instead of a week from picc insertion. Placed information on pt dc plan. Faxed rx to Jessi at [facility] at this time. Addendum entered by Michelle Adame 09/09/24 13:57: Received tc from Craig at [facility], the nurse will see pt tomorrow in the hospital for teaching of IV atb administration. The nurse will reach out to pt to schedule this. LANI GUARDADO into pt room, pt aware that I will reach out to schedule time. Pt states he spoke with insurance and his med will not be covered as he just retired and received this insurance. Pt aware that [facility] will also provide this RN GEO with cost. Pt agreeable to come to [facility] next Monday for picc dressing change and labs as well as the following with possible DC of picc. Pt and verbalize understanding of all information. Addendum entered by Michelle Adame 09/09/24 13:27: LANI GUARDADO received rx for IV atb from [facility]. LANI GUARDADO into pt room, pt present and pt sitting up in chair. Discussed options for IV infusion. Presented that pt has a MCR advantage plan and is not homebound so HHC is not an option. Other possible options would be to come in daily for IV infusion at [facility]. Pt states that it is impossible for him to come to [facility] daily. Offered the option that RN GEO could look into [facility] as pt states this is closer to him. Also discussed if pt and able to administer on own that having [employer], the infusion company, come in for education that pt goes home and self administers. Made aware of other options for infusion companies but they do not come for teaching. Pt states she works at a [employer] in [place] and is willing to learn. Pt also willing to learn. Pt and would like [facility] for infusion and teaching as first choice. If this cannot happen today or tomorrow, pt second choice would be to go to [facility] for outpt infusion. TC to Craig at [facility], left message. He called back and states this should not be a problem to do for tomorrow. Referral to be sent to [facility] for benefits. Meanwhile pt came to desk and asks for RN CM name and phone number to give to insurance company. Received call from John at [facility]. He asks for update on pt. Explained plan to him at this time. LANI GUARDADO to follow. Original Note: Received tc from [facility] for [facility] who states she would like tertiary list for pt. DC family service assistant requested to provide in chart. She also states that ID is consulted and pt may need IV atb. RN GEO to follow after ID sees pt for possible set up of this for homegoing. No plans for dc this date for pt.
--- NOTE | 2024-09-09 11:42 | CASEMGMT ---
Insurance review for hospitals In-network with M[employer] MCR insurance if transfer is recommended is as follows: [facility], [facility], [facility], [place], [facility], [facility], [facility], [facility], [place], [facility]), and . Selene Her, Discharge Planning Asst.
--- NOTE | 2024-09-09 13:58 | CON.PCM.ID_ITS ---
Assessment & Plan Assessment/Plan (1) Abscess of sigmoid colon due to diverticulitis: PLAN: Pain resolved, no fever, wbc remains elevated, and CT 09/07 showed abscess increased from 2 to 4cm. Discussed options with him. Unable to have drain placed here. He is hoping to avoid surgery. Will order picc and 2 weeks iv ertapenem. If sx worsen, he will need to be re-admitted. Will need repeat CT prior to stopping abx. Will follow, thank you, d/w primary team, wrote rx, ID followup in 2 weeks. (2) Leukocytosis: HPI Consult Data Date of Consult: 09/09/24 HPI Narrative Reason for Consultation: abscess HPI Narrative: CARLOS MOULTON, is a 64 M who presented 09/01 with about 2 weeks progressive LLQ cramping abd pain. No fever or chills, no blood in stool. Came to ED, CT showed diverticulitis and abscess, seen by surgery, admitted on zosyn. Changed to meropenem 09/04. Pain resolved after 1-2 days in hospital. Wants to go home. Full ROS performed and neg except as noted above. PFSH Medical History Wears glasses Wears dentures Easy bruising Smoker Home Medications ?Medication ?Instructions ?Recorded ?Last Taken ?Type Urinozinc 2 tab PO DAILY prostate 08/03/18 Unknown History glucosamine HCl 500 mg-msm 83 1 ea PO DAILY supplement 08/03/18 Unknown History mg-chondroitin 400 mg tablet multivitamin with folic acid 400 1 tab PO DAILY supplement 08/03/18 Unknown History mcg tablet (Thera) garlic 2,000 mg PO DAILY 09/08/21 Unknown History omega-3 fatty acids 1,000 mg PO DAILY 09/08/21 Unknown History ertapenem 1 gram solution for 1 g IV Q24 14 days #14 ea 09/09/24 Unknown Rx injection Allergy/AdvReac Type Severity Reaction Status Date / Time No Known Allergies Allergy Verified 09/01/24 11:01 Surgical History Hx of shoulder replacement Hx of colonoscopy Social History Smoking Status: Current every day smoker tobacco type: cigarettes Physical Exam Const alert, oriented x3 and no apparent distress General Appearance: cooperative HEENT normocephalic and head/scalp atraumatic Eyes PERRL and EOMs intact bilaterally Neck supple and No nodes Resp normal air movement and clear to auscultation bilaterally Cardio regular rate and regular rhythm GI soft to palpation, non-tender and non-distended Extremity General Extremity: Negative for edema Skin no rashes or lesions noted Neuro CN's II-XII intact bilaterally Lab / Micro Data Attestation: I reviewed the patient's lab results. 09/09/24 07:11 09/09/24 07:11 Labs: Laboratory Results - last 24 hr 09/09/24 07:11: WBC 19.0 H, RBC 4.97, Hgb 13.4, Hct 40.9, MCV 82.3, MCH 27.0, MCHC 32.8, RDW Std Deviation 41.8, RDW Coeff of Celina 14.0, Plt Count 682 H, MPV 8.5, Immature Gran % (Auto) 0.500, Neut % (Auto) 75.7 H, Lymph % (Auto) 9.4 L, M anthony % (Auto) 11.9 H, Eos % (Auto) 2.1, Baso % (Auto) 0.4, Absolute Neuts (auto) 14.4 H, Absolute Lymphs (auto) 1.79, Nucleated RBC % 0, Platelet Estimate MOD INC, PT 13.9, INR 1.1, Sodium 138, Potassium 3.6, Chloride 107, Carbon Dioxide 25.0, Anion Gap 6, BUN 13, Creatinine 0.74, Estim Creat Clear Calc 89.18, Est GFR (MDRD) Af Amer 136, Est GFR (MDRD) Non-Af 113, BUN/Creatinine Ratio 17.5, G lucose 107 H, Calcium 8.9 Micro: Microbiology 09/06/24 23:55 Urine, Clean Catch Urine Culture - Final Culture exhibits no growth.
[2024-09-09 14:20] LABS: Pathologist Review Reviewed
[2024-09-09 14:23] LABS: Pathologist Review Reviewed
[2024-09-09 14:29] LABS: Pathologist Review Reviewed
[2024-09-09 15:30] VITALS: BP 118/75; PULSE 76; RESP 16; TEMP 37; O2SAT 97
[2024-09-09] MEDS: Ertapenem Sod 1 GM in 0.9% Normal Saline (50mL MB+) 50 ML IV (15:54)
--- NOTE | 2024-09-09 15:56 | PN.HOSP_ITS ---
Reason for Visit Reason for Visit: Doing well, no issues overnight Objective Data Objective Data Vital Signs: Vital Signs Temp Pulse Resp BP Pulse Ox O2 Del Method 98.3 F 79 18 114/73 99 Room Air 09/09/24 10:30 09/09/24 10:30 09/09/24 10:30 09/09/24 10:30 09/09/24 10:30 09/09/24 10:30 Oxygen Delivery Method Room Air Weight: 151 lb Body Mass Index (BMI) 22.3 Intake & Output: Intake and Output for Last 24 Hours 09/08/24 09/09/24 09/10/24 03:59 03:59 03:59 Intake Total 1010 / 1010 1360 / 1360 120 / 120 Balance 1010 / 1010 1360 / 1360 120 / 120 Lab / Micro Data 09/09/24 07:11 09/09/24 07:11 Labs: Laboratory Results - last 24 hr 09/06/24 05:25: Diff Path Review Reviewed 09/07/24 05:55: Diff Path Review Reviewed 09/08/24 05:14: Diff Path Review Reviewed 09/09/24 07:11: WBC 19.0 H, RBC 4.97, Hgb 13.4, Hct 40.9, MCV 82.3, MCH 27.0, MCHC 32.8, RDW Std Deviation 41.8, RDW Coeff of Celina 14.0, Plt Count 682 H, MPV 8.5, Immature Gran % (Auto) 0.500, Neut % (Auto) 75.7 H, Lymph % (Auto) 9.4 L, M anthony % (Auto) 11.9 H, Eos % (Auto) 2.1, Baso % (Auto) 0.4, Absolute Neuts (auto) 14.4 H, Absolute Lymphs (auto) 1.79, Nucleated RBC % 0, Platelet Estimate MOD INC, PT 13.9, INR 1.1, Sodium 138, Potassium 3.6, Chloride 107, Carbon Dioxide 25.0, Anion Gap 6, BUN 13, Creatinine 0.74, Estim Creat Clear Calc 89.18, Est GFR (MDRD) Af Amer 136, Est GFR (MDRD) Non-Af 113, BUN/Creatinine Ratio 17.5, G lucose 107 H, Calcium 8.9 Micro: Microbiology 09/06/24 23:55 Urine, Clean Catch Urine Culture - Final Culture exhibits no growth. Physical Exam Narrative General: Alert, Oriented x3, Cooperative, No apparent distress HEENT: Atraumatic, PERRLA, EOMI, Normocephalic Oral: Moist Mucosa Neck: Supple, No JVD Lungs: Clear to auscultation, Normal air movement, No rhonchi, No wheeze, No rales Cardiovascular: Regular rate, Regular Rhythm, Normal S1, Normal S2, No murmurs Abdomen: Soft, Non Tender, Non-Distended, No Hepato-splenomegaly Extremities: No edema, Capillary Refill Less than 3 Seconds Skin: No rashes, No breakdown Musculoskeletal: No Tenderness to Palpation of Joints or Extremities Neurological: No focal neurological deficits, Motor Exam 5/5 strength throughout, Sensory exam intact to light touch and pain Psych/Mental Status: Normal Affect, Appropriate Assessment & Plan Assessment/Plan (1) Abscess of sigmoid colon due to diverticulitis: PLAN: Plan 1. Acute complicated sigmoid diverticulitis ? Surgery following. CT abdomen pelvis on admit showed complicated sigmoid diverticulitis with associated pericolonic abscess inflammatory changes. WBC count elevated on admit. Started on IV Zosyn on admission and patient had clinical improvement, but WBC count has remained elevated. Repeat CT abdomen pelvis on 09/04 showed persistent acute sigmoid diverticulitis with persistent small walled off fluid collection suggestive of abscess showing 2.4 x 2 cm. Per surgery, switched to IV meropenem on 09/04. Diet escalated to full liquid diet on 09/04. Surgery noted that fluid collection is more consistent with a phlegmon so no drain placement needed. No acute surgical indication currently. Continue to monitor and appreciate surgical recommendations on timing of discharge. 09/05: Surgical note reviewed. Patient has leukocytosis but does not have abdominal pain tenderness. Moving his bowel. Clinically speaking, patient can be discharged probably tomorrow. 09/06: Leukocytosis, TLC 17.7 thousand, neutrophils 74%, lymphocyte 10.5%, monocytosis 12.2%. Immature granulocytes normal 0.5%. Clinically patient does not have pain, tenderness, rebound tenderness guarding or rigidity. Tolerating soft diet. Discussed with the surgeon wants to keep the patient for further monitoring of WBC count. 09/07: Repeat CT scan shows perforated sigmoid diverticulitis with pericolonic abscess. Abscess size is increased to 4.7 cm from 2.5 cm. Extensive colonic diverticular disease with wall thickening and pericolonic inflammation. 09/08: Since increase in the size was noticed plan for IR CT-guided tube/catheter drainage of the abscess. Leukocytosis increased to 20,000. Patient is still asymptomatic. 09/09/2024: He is very agitated today, he thinks that he has been lied to about the course, he does not understand the progression of his disease with having been told that he would go home and then he is not going home because his white count increased and the size of the abscess also increased. He was told that he would have a drain today however radiology was out of the department today which is what initially caused him to be angry. Radiology did review the films and felt that he could not do the procedure here safely surgery also reached out to [facility] and the radiologist there did not feel like he could place a drain either so they do have referrals made as an outpatient to and [facility]. He does not want to proceed with surgery and so his only option that is a prolonged course of antibiotics for 2 weeks. Infectious disease was consulted and recommends a PICC line to be placed with IV Invanz on discharge. The PICC line will be placed today however because his went home he does not want to call her back to come and pick her up so he wants to go home tomorrow 2. Chronic alcohol dependence ? Reported drinking 6 beers daily. Placed on DT precautions on admit, has not triggered this. Will continue to monitor. 3. Tobacco dependence ? Encourage cessation. Nicotine patch placed per patient request. DVT: Heparin Charges/Coding Visit Charges Inpatient E&M: 53090 Subs Hosp L2
[2024-09-09 20:27] VITALS: BP 121/75; PULSE 74; RESP 16; TEMP 37; O2SAT 98
[2024-09-10 02:31] VITALS: BP 119/81; PULSE 67; RESP 16; TEMP 36.6; O2SAT 98
[2024-09-10 07:38] LABS: Absolute Lymphocyte Count 2.28 X10^3/uL (0.83-4.51); Absolute Neutrophil Count 12.5 X10^3/uL (2.0-7.7); Basophil# 0.11 X10^3/uL; Basophil% 0.6 % (0-1); Eosinophil# 0.42 X10^3/uL; Eosinophils% 2.4 % (0-5); Hematocrit 41.2 % (40-54); Hemoglobin 13.6 g/dL (13.0-16.5); Lymphocyte # 2.28 X10^3/ul (0.83-4.51); Lymphocyte % 13.3 % (19-41); Mean Corpuscular Volume 81.7 fL (80-94); Mean Platelet Vol. 8.5 fl (6.2-12.0); Monocyte# 1.72 X10^3/uL; NRBC Flagged by Analyzer 0 % (0-5); Neutrophil # 12.53 X10^3/uL (2.7-7.7); Neutrophil % 73.1 % (47-70); POSITIVE DIFFERENTIAL YES; Platelet Count 745 K/mm3 (150-450); RBC Distribution Width CV 14.1 % (11.6-14.6); RBC Distribution Width SD 41.5 fl (35.1-43.9); Red Blood Count 5.04 M/mm3 (4.6-6.2); White Blood Count 17.2 K/mm3 (4.4-11.0)
[2024-09-10 07:42] VITALS: BP 124/75; PULSE 76; RESP 18; TEMP 37.1; O2SAT 98
[2024-09-10 07:44] LABS: Differential Indicated SCAN CRITERIA MET
[2024-09-10 07:58] LABS: Anion Gap 7 (5-15); BUN 14 mg/dL (7-18); BUN/Creat Ratio 19.9 RATIO (10-20); Calcium,Total 9.1 mg/dL (8.5-10.1); Chloride 106 mmol/L (98-107); EST Glomerular Filtration Rate 120 mL/min (>60); Est Glom Filt Rate - Afr Amer 145 mL/min (>60); Estimated Creatinine Clearance 89.18 ml/min; Glucose 122 mg/dL (74-106); Potassium 3.8 mmol/L (3.5-5.1); Sodium Level 138 mmol/L (136-145)
--- NOTE | 2024-09-10 08:10 | PN.SURG_ITS ---
Subjective Subjective Patient evaluated resting comfortably in the chair. He denies any abdominal pain/discomfort. He denies any nausea/vomiting. He denies any fever. He is passing flatus and had a good bowel movement this morning without any abdominal pain/discomfort. Objective Data Objective Data Vital Signs: Vital Signs Temp Pulse Resp BP Pulse Ox O2 Del Method 98.7 F 76 18 124/75 H 98 Room Air 09/10/24 07:42 09/10/24 07:42 09/10/24 07:42 09/10/24 07:42 09/10/24 07:42 09/10/24 07:47 Oxygen Delivery Method Room Air Weight: 151 lb Body Mass Index (BMI) 22.3 Intake & Output: Intake and Output for Last 24 Hours 09/08/24 09/09/24 09/10/24 23:59 23:59 23:59 Intake Total 1360 / 1360 300 / 300 700 / 700 Balance 1360 / 1360 300 / 300 700 / 700 Lab / Micro Data 09/10/24 07:12 09/10/24 07:12 Labs: Laboratory Results - last 24 hr 09/06/24 05:25: Diff Path Review Reviewed 09/07/24 05:55: Diff Path Review Reviewed 09/08/24 05:14: Diff Path Review Reviewed 09/09/24 07:11: Sodium 138, Potassium 3.6, Chloride 107, Carbon Dioxide 25.0, Anion Gap 6, BUN 13, Creatinine 0.74, Estim Creat Clear Calc 89.18, Est GFR (MDRD) Af Amer 136, Est GFR (MDRD) Non-Af 113, BUN/Creatinine Ratio 17.5, G lucose 107 H, Calcium 8.9 09/10/24 07:12: WBC 17.2 H, RBC 5.04, Hgb 13.6, Hct 41.2, MCV 81.7, MCH 27.0, MCHC 33.0, RDW Std Deviation 41.5, RDW Coeff of Celina 14.1, Plt Count 745 H, MPV 8.5, Immature Gran % (Auto) 0.600, Neut % (Auto) 73.1 H, Lymph % (Auto) 13.3 L, [place]aine % (Auto) 10.0, Eos % (Auto) 2.4, Baso % (Auto) 0.6, Absolute Neuts (auto) 12.5 H, Absolute Lymphs (auto) 2.28, Nucleated RBC % 0, Sodium 138, Potassium 3.8, Chloride 106, Carbon Dioxide 25.0, Anion Gap 7, BUN 14, Creatinine 0.70, Estim Creat Clear Calc 89.18, Est GFR (MDRD) Af Amer 145, Est GFR (MDRD) Non-Af 120, BUN/Creatinine Ratio 19.9, Glucose 122 H, Calcium 9.1 Micro: Microbiology 09/06/24 23:55 Urine, Clean Catch Urine Culture - Final Culture exhibits no growth. Physical Exam GI GI Narrative: Abdomen- soft, non-tender Assessment & Plan Assessment/Plan (1) Abscess of sigmoid colon due to diverticulitis: (2) Leukocytosis: PLAN: Plan I am following this patient in conjunction with Dr. Camacho. She has independently evaluated this patient. Labs reviewed. WBC is 17.2. ID has evaluated the patient with recommendations of outpatient IV Invanz for 2 weeks Plan for patient to obtain a CT scan of the ab/pel early next week and follow-up with Dr. Camacho after imaging is completed. Reviewed with the patient a low fiber diet I have not received any updates from [facility] or [facility] [place] [facility] in regards to possible drain placement Patient would like discharged today Charges/Coding Visit Charges Inpatient E&M: 24293 Subs Hosp L1
--- NOTE | 2024-09-10 09:12 | DCINST_ITS ---
Discharge Instructions Diet Discharge Diet: No restrictions Activity Discharge Activity: Return to Normal Activity Dressing / Incision Call your doctor if you observe: Fever of 101 or Higher, Shortness of breath, Dizziness, Fainting spells, Swelling in the ankles, Chest pain and Increased palpitations (irregular heartbeat) Follow Up Care Test Results: Test results from this visit will be discussed in further detail at your follow- up appointment, if applicable. Discharge Plan Admission Admit Date/Time: 09/01/24 12:37 Attending Provider: Markos Valenzuela Primary Care Provider: Care Physician,No Primary Consulting Providers: Juliet Camacho; Chalino Schultz; Mahin Min; Diogo Mendoza; Dvaid Ashton Instructions Additional Instructions / Restrictions: What are low-fiber foods? If your doctor tells you to follow a low-fiber diet, here are low-fiber foods you can eat and higher-fiber foods you should avoid. Remember to always choose foods that you would normally eat. Do not try any foods that caused you discomfort or allergic reactions in the past. If you are on a ?low-residue diet,? your food choices are even more restricted than those listed below. Talk with your cancer care team or dietitian if you have questions about certain foods or amounts. Meat, fish, poultry, and protein Eat: Tender cuts of meat Ground meat Tofu Fish and shellfish Smooth peanut butter Eggs Bake, broil, or poach meats, and use mild seasonings. Try preparing meats as stews, roasts, meatloaves, casseroles, sandwiches, and soups using ingredients on the approved lists. Scramble, poach, or boil eggs; or make omelets, souffl?s, custard, puddings, and casseroles, using ingredients noted below. You might want to ask your doctor, nurse, or dietitian about other foods may be OK for you to eat, and find out when you can go back to your normal diet. Avoid: All beans, nuts, peas, lentils, and legumes Processed meats, hot dogs, sausage, and cold cuts Tough meats with gristle Dairy: Milk and cheese Eat: Only in small to medium amounts and only if they don?t cause problems for you Milk, chocolate milk, buttermilk, and milk drinks Yogurt without seeds or granola Sour cream Cheese Cottage cheese Custard or pudding Ice cream or frozen desserts (without nuts) Cream sauces, soups, and casseroles You can use these items in desserts, snacks, or breads. Bread, cereals, and grains Eat: White breads, waffles, Sami toast, plain white rolls, or white bread toast Pretzels Plain pasta or noodles White rice Crackers, zwieback, yuni, and matzoh (no cracked wheat or whole grains) Cereals without whole grains, added fiber, seeds, raisins, or other dried fruit Use white flour for baking and making sauces. Grains, such as white rice, Cream of Wheat, or grits, should be well-cooked. Include the above grains in casseroles, dumplings, souffl?s, cheese strata, kugels, and pudding. Avoid any food that contains: Brown or wild rice Whole grains, cracked grains, or whole wheat products Kasha (buckwheat) Cornbread or cornmeal Casey crackers Bran Wheat germ Nuts Granola Coconut Dried fruit Seeds Vegetables and potatoes Eat: Tender, well-cooked fresh or canned vegetables without seeds, stems, or skins Cooked sweet or white potatoes without skins Strained vegetable juices without pulp or spices You can also eat these with cream sauces, or in soups, souffl?s, kugels, and casseroles. Avoid: All raw or steamed vegetables All types of beans Potatoes with skin Peas [place] Cabbage, broccoli, cauliflower, [place] sprouts, and greens Sauerkraut Onions Fruits and desserts Eat: Soft canned or cooked fruit without seeds or skins (small amounts) Small amounts of well-ripened banana Strained or clear juices Small amounts of soft cantaloupe or honeydew melon Cookies and other desserts without whole grains, dried fruit, berries, nuts, or coconut Sherbet and popsicles Serving suggestions include gelatins, milk shakes, frozen desserts, puddings, tapioca, cakes, and sauces. Avoid: All raw or dried fruits Berries Prune juice, prunes, and raisins Other foods Eat: Mayonnaise and mild salad dressings Margarine, butter, cream, and oils in small amounts Plain gravies Plain bouillon and broth Ketchup and mild mustard Spices, cooked herbs, and salt Sugar, honey, and syrup Clear jellies Hard candy and marshmallows Plain chocolate Avoid: Marmalade Pickles, olives, relish, and horseradish Popcorn Potato chips Liquids Keep in mind that low-fiber foods cause fewer bowel movements and smaller stools. You may need to drink extra fluids to help prevent constipation while you are on a low-fiber diet. Drink plenty of water unless your doctor tells you otherwise, and use juices and milk as noted above. Discharge Orders/Prescriptions Prescriptions: New ertapenem 1 gram Recon Soln 1 g IV Q24 14 Days Qty: 14 0RF Rx Instructions: stop date . Dx: intra-abd abscess. Weekly bmp, cbc, and LFT. Fax to [phone]. Routine line care per protocol. Continued multivitamin with folic acid [Thera] 1 TABLET tablet 1 tab PO DAILY glucosamine [id number] 1 EACH tablet 1 ea PO DAILY Urinozinc 2 tab PO DAILY garlic Capsule 2,000 mg PO DAILY omega-3 fatty acids Capsule 1,000 mg PO DAILY Other Ambulatory Orders: Abdomen/Pelvis WITH Contrast (Routine) Facility: [facility] - Location: [facility] Ordered By: Le GUEVARA Referrals / Follow Up: Javed Gao DO [Med Staff - Registered Dental Assistant] - Juliet Camacho MD [Med Staff - Active Staff] - (Please contact our office for follow-up after obtaining a CT scan of the abdomen/pelvis) Care Physician,No Primary [Primary Care Provider] - Disposition Disposition (needs filled in before D/C Order can be placed): Home, Self Care
--- NOTE | 2024-09-10 09:28 | CASEMGMT ---
Addendum entered by Michelle Adame 09/10/24 11:40: Uploaded DC Instructions, PICC insertion and ID consult to I at this time. Addendum entered by Michelle Adame 09/10/24 10:32: LANI GUARDADO notified by Daniel that pt did well and teaching has been completed. LANI GUARDADO into pt room, pt confirmed as well as that they are comfortable with IV administration. Nurse reviewing dc instructions. Pt aware IV atb will be delivered today. Pt aware of his picc dressing appts with labs. Pt and deny further needs at this time. Original Note: LANI GUARDADO into pt room, pt sitting up in chair, at bedside and nurse in room. Pt ready for dc. States Sanchez will be here from [facility] at 9:30a to do teaching and pt was told the med would be dispensed as an elastomeric ball. LANI GUARDADO to check back after teaching.
[2024-09-10] MEDS: Ertapenem Sod 1 GM in 0.9% Normal Saline (50mL MB+) 50 ML IV (09:30)
[2024-09-10] MEDS: 0.9% Saline Lock 10 ML Syringe IV (09:31)
[2024-09-10 13:38] LABS: Pathologist Review Reviewed
--- NOTE | 2024-09-10 13:48 | DS.PCM_ITS ---
Providers Date of Admission: 09/01/24 Primary Care Physician: Maria Fernanda Primary Care Phys Consultations 09/01/24 13:29 Consult: General Surgery Routine Consulting Provider: Juliet Camacho Reason for Consult: Acute complicated sigmoid diverticulitis EMERGENT Consult: No MD Notified: Yes Date Notified: 09/01/24 Time Notified: 12:43 Method of Notification: Verbal 09/09/24 10:34 Consult: Infectious Disease Routine Consulting Provider: David Ashton Reason for Consult: diverticulitis w/ abscess unable to place drain. ATB- recommendations EMERGENT Consult: No MD Notified: Yes Date Notified: 09/09/24 Time Notified: 10:35 Method of Notification: Text 09/09/24 11:05 Consult: Infectious Disease Routine Consulting Provider: David Ashton Reason for Consult: Divertic with abscess EMERGENT Consult: No MD Notified: Yes Date Notified: 09/09/24 Time Notified: 11:05 Method of Notification: Verbal Reason For Visit: ACUTE SIGMOID DIVERTICULAR Diagnosis Discharge Diagnosis (1) Abscess of sigmoid colon due to diverticulitis: Status: Acute Code(s): K57.20 - Diverticulitis of large intestine with perforation and abscess without bleeding (2) Leukocytosis: Status: Acute Code(s): D72.829 - Elevated white blood cell count, unspecified Plan 1. Acute complicated sigmoid diverticulitis ? Surgery following. CT abdomen pelvis on admit showed complicated sigmoid diverticulitis with associated pericolonic abscess inflammatory changes. WBC count elevated on admit. Started on IV Zosyn on admission and patient had clinical improvement, but WBC count has remained elevated. Repeat CT abdomen pelvis on 09/04 showed persistent acute sigmoid diverticulitis with persistent small walled off fluid collection suggestive of abscess showing 2.4 x 2 cm. Per surgery, switched to IV meropenem on 09/04. Diet escalated to full liquid diet on 09/04. Surgery noted that fluid collection is more consistent with a phlegmon so no drain placement needed. No acute surgical indication currently. Continue to monitor and appreciate surgical recommendations on timing of discharge. 09/05: Surgical note reviewed. Patient has leukocytosis but does not have abdominal pain tenderness. Moving his bowel. Clinically speaking, patient can be discharged probably tomorrow. 09/06: Leukocytosis, TLC 17.7 thousand, neutrophils 74%, lymphocyte 10.5%, monocytosis 12.2%. Immature granulocytes normal 0.5%. Clinically patient does not have pain, tenderness, rebound tenderness guarding or rigidity. Tolerating soft diet. Discussed with the surgeon wants to keep the patient for further monitoring of WBC count. 09/07: Repeat CT scan shows perforated sigmoid diverticulitis with pericolonic abscess. Abscess size is increased to 4.7 cm from 2.5 cm. Extensive colonic diverticular disease with wall thickening and pericolonic inflammation. 09/08: Since increase in the size was noticed plan for IR CT-guided tube/catheter drainage of the abscess. Leukocytosis increased to 20,000. Patient is still asymptomatic. 09/09/2024: He is very agitated today, he thinks that he has been lied to about the course, he does not understand the progression of his disease with having been told that he would go home and then he is not going home because his white count increased and the size of the abscess also increased. He was told that he would have a drain today however radiology was out of the department today which is what initially caused him to be angry. Radiology did review the films and felt that he could not do the procedure here safely surgery also reached out to [facility] and the radiologist there did not feel like he could place a drain either so they do have referrals made as an outpatient to and [facility]. He does not want to proceed with surgery and so his only option that is a prolonged course of antibiotics for 2 weeks. Infectious disease was consulted and recommends a PICC line to be placed with IV Invanz on discharge. The PICC line will be placed today however because his went home he does not want to call her back to come and pick her up so he wants to go home tomorrow 2. Chronic alcohol dependence ? Reported drinking 6 beers daily. Placed on DT precautions on admit, has not triggered this. Will continue to monitor. 3. Tobacco dependence ? Encourage cessation. Nicotine patch placed per patient request. DVT: Heparin Medications at Discharge Home Medications Urinozinc 2 tab PO DAILY prostate 08/03/18 glucosamine HCl 500 mg-msm 83 mg-chondroitin 400 mg tablet 1 ea PO DAILY supplement 08/03/18 multivitamin with folic acid 400 mcg tablet (Thera) 1 tab PO DAILY supplement 08/03/18 garlic 2,000 mg PO DAILY 09/08/21 omega-3 fatty acids 1,000 mg PO DAILY 09/08/21 ertapenem 1 gram solution for injection 1 g IV Q24 14 days #14 ea 09/09/24 Hospital Course Operations None Procedures PICC line placement Summary of Care Provided Minutes Spent on Discharge: 35 Hospital Course: Per HPI: CARLOS MOULTON, is a 63 M who presents who presents with abdominal cramps. Patient is in relatively good health on no chronic medications except for multivitamin. Symptoms started 2 to 3 weeks prior to his admission. Pain was located in the lower abdomen. He elected to present to the emergency department in view of increasing cramps on the day of his admission. Imaging studies obtained did show Complicated sigmoid diverticulitis with associated pericolonic abscess and inflammatory changes. No large volume pneumoperitoneum. No bowel obstruction. Hospital Course: 1. Acute complicated sigmoid diverticulitis ? Surgery following. CT abdomen pelvis on admit showed complicated sigmoid diverticulitis with associated pericolonic abscess inflammatory changes. WBC count elevated on admit. Started on IV Zosyn on admission and patient had clinical improvement, but WBC count has remained elevated. Repeat CT abdomen pelvis on 09/04 showed persistent acute sigmoid diverticulitis with persistent small walled off fluid collection suggestive of abscess showing 2.4 x 2 cm. Per surgery, switched to IV meropenem on 09/04. Diet escalated to full liquid diet on 09/04. Surgery noted that fluid collection is more consistent with a phlegmon so no drain placement needed. No acute surgical indication currently. Continue to monitor and appreciate surgical recommendations on timing of discharge. 09/05: Surgical note reviewed. Patient has leukocytosis but does not have abdominal pain tenderness. Moving his bowel. Clinically speaking, patient can be discharged probably tomorrow. 09/06: Leukocytosis, TLC 17.7 thousand, neutrophils 74%, lymphocyte 10.5%, monocytosis 12.2%. Immature granulocytes normal 0.5%. Clinically patient does not have pain, tenderness, rebound tenderness guarding or rigidity. Tolerating soft diet. Discussed with the surgeon wants to keep the patient for further monitoring of WBC count. 09/07: Repeat CT scan shows perforated sigmoid diverticulitis with pericolonic abscess. Abscess size is increased to 4.7 cm from 2.5 cm. Extensive colonic diverticular disease with wall thickening and pericolonic inflammation. 09/08: Since increase in the size was noticed plan for IR CT-guided tube/catheter drainage of the abscess. Leukocytosis increased to 20,000. Patient is still asymptomatic. 09/09/2024: He is very agitated today, he thinks that he has been lied to about the course, he does not understand the progression of his disease with having been told that he would go home and then he is not going home because his white count increased and the size of the abscess also increased. He was told that he would have a drain today however radiology was out of the department today which is what initially caused him to be angry. Radiology did review the films and felt that he could not do the procedure here safely surgery also reached out to [facility] and the radiologist there did not feel like he could place a drain either so they do have referrals made as an outpatient to and [facility]. He does not want to proceed with surgery and so his only option that is a prolonged course of antibiotics for 2 weeks. Infectious disease was consulted and recommends a PICC line to be placed with IV Invanz on discharge. The PICC line will be placed today however because his went home he does not want to call her back to come and pick her up so he wants to go home tomorrow 09/10/2024: He decided to pay for antibiotics on his own as insurance does not cover home infusions and he would otherwise have to come to the infusion center every day for 2 weeks. Discussed with him the option of surgery he does not want to do that right now he wants to continue with antibiotics and get everything organized at home prior to any type of surgical intervention if needed. I discussed with him the plan for discharge expressed understanding of the risk benefits going home and he wants to go home today. Open follow-up with surgery as an outpatient to monitor his abscess abscess. We had specific discussions on why return to the hospital specifically but not limited to increased abdominal pain, fevers, chills. 2. Chronic alcohol dependence ? Reported drinking 6 beers daily. Placed on DT precautions on admit, has not triggered this. Will continue to monitor. 3. Tobacco dependence ? Encourage cessation. Nicotine patch placed per patient request. Physical Exam Narrative General: Alert, Oriented x3, Cooperative, No apparent distress HEENT: Atraumatic, PERRLA, EOMI, Normocephalic Oral: Moist Mucosa Neck: Supple, No JVD Lungs: Clear to auscultation, Normal air movement, No rhonchi, No wheeze, No rales Cardiovascular: Regular rate, Regular Rhythm, Normal S1, Normal S2, No murmurs Abdomen: Soft, Non Tender, Non-Distended, No Hepato-splenomegaly Extremities: No edema, Capillary Refill Less than 3 Seconds Skin: No rashes, No breakdown Musculoskeletal: No Tenderness to Palpation of Joints or Extremities Neurological: No focal neurological deficits, Motor Exam 5/5 strength throughout, Sensory exam intact to light touch and pain Psych/Mental Status: Normal Affect, Appropriate Weight / BMI Weight Weight: 151 lb Body Mass Index (BMI) 22.3 ABG / Lab / Microbiology Data 09/10/24 07:12 09/10/24 07:12 Laboratory: Laboratory Results - last 24 hr 09/06/24 05:25: Diff Path Review Reviewed 09/07/24 05:55: Diff Path Review Reviewed 09/08/24 05:14: Diff Path Review Reviewed 09/10/24 07:12: WBC 17.2 H, RBC 5.04, Hgb 13.6, Hct 41.2, MCV 81.7, MCH 27.0, MCHC 33.0, RDW Std Deviation 41.5, RDW Coeff of Celina 14.1, Plt Count 745 H, MPV 8.5, Immature Gran % (Auto) 0.600, Neut % (Auto) 73.1 H, Lymph % (Auto) 13.3 L, Quay % (Auto) 10.0, Eos % (Auto) 2.4, Baso % (Auto) 0.6, Absolute Neuts (auto) 12.5 H, Absolute Lymphs (auto) 2.28, Nucleated RBC % 0, Diff Path Review Reviewed, Sodium 138, Potassium 3.8, Chloride 106, Carbon Dioxide 25.0, Anion Gap 7, BUN 14, Creatinine 0.70, Estim Creat Clear Calc 89.18, Est GFR (MDRD) Af Amer 145, Est GFR (MDRD) Non-Af 120, BUN/Creatinine Ratio 19.9, Glucose 122 H, Calcium 9.1 Microbiology: Microbiology 09/06/24 23:55 Urine, Clean Catch Urine Culture - Final Culture exhibits no growth. D/C Instructions Discharge Diet: No restrictions Call your doctor if you observe: Fever of 101 or Higher, Shortness of breath, Dizziness, Fainting spells, Swelling in the ankles, Chest pain and Increased palpitations (irregular heartbeat) Meaningful Use Info Meaningful Use Meaningful Use Diagnoses (Choose all that apply): None applicable Ischemic Stroke Statin Dosing Therapy Reference: STATIN DOSE THERAPY REFERENCE: * Patients > 75 years receive moderate or high dose statin therapy. * Patients 75 years or YOUNGER should receive HIGH intensity statin dose unless contraindicated. You will be required to document reason for non-treatment if statin daily dose does not meet guidelines. HIGH DOSE STATIN THERAPY DAILY Atorvastatin > than or = to 40 mg Rosuvastatin > than or = to 20 mg Amlodipine + Atorvastatin > than or = to 2.5/40 mg Ezetimibe + Simvastatin 10/80 mg Simvastatin 80mg Discharge Plan Admission Admit Date/Time: 09/01/24 12:37 Attending Provider: Markos Valenzuela Primary Care Provider: Care Physician,Maria Fernanda Primary Consulting Providers: Juliet Camacho; Chalino Schultz; Mahin Min; Diogo Mendoza; David Ashton Instructions Additional Instructions / Restrictions: What are low-fiber foods? If your doctor tells you to follow a low-fiber diet, here are low-fiber foods you can eat and higher-fiber foods you should avoid. Remember to always choose foods that you would normally eat. Do not try any foods that caused you discomfort or allergic reactions in the past. If you are on a ?low-residue diet,? your food choices are even more restricted than those listed below. Talk with your cancer care team or dietitian if you have questions about certain foods or amounts. Meat, fish, poultry, and protein Eat: Tender cuts of meat Ground meat Tofu Fish and shellfish Smooth peanut butter Eggs Bake, broil, or poach meats, and use mild seasonings. Try preparing meats as stews, roasts, meatloaves, casseroles, sandwiches, and soups using ingredients on the approved lists. Scramble, poach, or boil eggs; or make omelets, souffl?s, custard, puddings, and casseroles, using ingredients noted below. You might want to ask your doctor, nurse, or dietitian about other foods may be OK for you to eat, and find out when you can go back to your normal diet. Avoid: All beans, nuts, peas, lentils, and legumes Processed meats, hot dogs, sausage, and cold cuts Tough meats with gristle Dairy: Milk and cheese Eat: Only in small to medium amounts and only if they don?t cause problems for you Milk, chocolate milk, buttermilk, and milk drinks Yogurt without seeds or granola Sour cream Cheese Cottage cheese Custard or pudding Ice cream or frozen desserts (without nuts) Cream sauces, soups, and casseroles You can use these items in desserts, snacks, or breads. Bread, cereals, and grains Eat: White breads, waffles, Wolof toast, plain white rolls, or white bread toast Pretzels Plain pasta or noodles White rice Crackers, zwieback, yuni, and matzoh (no cracked wheat or whole grains) Cereals without whole grains, added fiber, seeds, raisins, or other dried fruit Use white flour for baking and making sauces. Grains, such as white rice, Cream of Wheat, or grits, should be well-cooked. Include the above grains in casseroles, dumplings, souffl?s, cheese strata, kugels, and pudding. Avoid any food that contains: Brown or wild rice Whole grains, cracked grains, or whole wheat products Kasha (buckwheat) Cornbread or cornmeal Casey crackers Bran Wheat germ Nuts Granola Coconut Dried fruit Seeds Vegetables and potatoes Eat: Tender, well-cooked fresh or canned vegetables without seeds, stems, or skins Cooked sweet or white potatoes without skins Strained vegetable juices without pulp or spices You can also eat these with cream sauces, or in soups, souffl?s, kugels, and casseroles. Avoid: All raw or steamed vegetables All types of beans Potatoes with skin Peas [place]ham Cabbage, broccoli, cauliflower, Parsons sprouts, and greens Sauerkraut Onions Fruits and desserts Eat: Soft canned or cooked fruit without seeds or skins (small amounts) Small amounts of well-ripened banana Strained or clear juices Small amounts of soft cantaloupe or honeydew melon Cookies and other desserts without whole grains, dried fruit, berries, nuts, or coconut Sherbet and popsicles Serving suggestions include gelatins, milk shakes, frozen desserts, puddings, tapioca, cakes, and sauces. Avoid: All raw or dried fruits Berries Prune juice, prunes, and raisins Other foods Eat: Mayonnaise and mild salad dressings Margarine, butter, cream, and oils in small amounts Plain gravies Plain bouillon and broth Ketchup and mild mustard Spices, cooked herbs, and salt Sugar, honey, and syrup Clear jellies Hard candy and marshmallows Plain chocolate Avoid: Marmalade Pickles, olives, relish, and horseradish Popcorn Potato chips Liquids Keep in mind that low-fiber foods cause fewer bowel movements and smaller stools. You may need to drink extra fluids to help prevent constipation while you are on a low-fiber diet. Drink plenty of water unless your doctor tells you otherwise, and use juices and milk as noted above. Discharge Orders/Prescriptions Prescriptions: New ertapenem 1 gram Recon Soln 1 g IV Q24 14 Days Qty: 14 0RF Rx Instructions: stop date . Dx: intra-abd abscess. Weekly bmp, cbc, and LFT. Fax to [phone]. Routine line care per protocol. Continued multivitamin with folic acid [Thera] 1 TABLET tablet 1 tab PO DAILY glucosamine [id number] 1 EACH tablet 1 ea PO DAILY Urinozinc 2 tab PO DAILY garlic Capsule 2,000 mg PO DAILY omega-3 fatty acids Capsule 1,000 mg PO DAILY Referrals / Follow Up: Javed Gao DO [Med Staff - Fabricator Special Items] - Juliet Camacho MD [Med Staff - Active Staff] - (Please contact our office for follow-up after obtaining a CT scan of the abdomen/pelvis) Care Physician,No Primary [Primary Care Provider] - Disposition Disposition (needs filled in before D/C Order can be placed): Home, Self Care Charges/Coding Visit Charges Inpatient E&M: 37152 Disch Hosp >30min
--- NOTE | 2024-09-10 14:37 | PHA.DC_ITS ---
Pharmacy OR Med Reconciliation Pharmacy Service has performed discharge medication reconciliation for this patient. Medication education papers prepared, patient discharged when counseling was attempted. Medications reviewed. The patient's discharge medication list was reviewed for discrepancies and discrepancies were resolved. Medications at Discharge Home Medications Urinozinc 2 tab PO DAILY prostate 08/03/18 glucosamine HCl 500 mg-msm 83 mg-chondroitin 400 mg tablet 1 ea PO DAILY supple ment 08/03/18 multivitamin with folic acid 400 mcg tablet (Thera) 1 tab PO DAILY supplement 08/03/18 garlic 2,000 mg PO DAILY 09/08/21 omega-3 fatty acids 1,000 mg PO DAILY 09/08/21 ertapenem 1 gram solution for injection 1 g IV Q24 14 days #14 ea 09/09/24
== END 2024-09-10 10:30 | disposition home or self-care (01) | DRG 391 ==
LOC: ED 12:29 → MS3 13:06
PROVIDERS: Internal Medicine; Physician Assistant; Surgery; Admitting Provider Internal Medicine; Emergency Provider Emergency Medicine; Visit Provider Family Medicine
DX: K57.20 Diverticulitis of large intestine with perforation and abscess without bleeding (principal); K65.1 Peritoneal abscess; F10.20 Alcohol dependence, uncomplicated; D72.829 Elevated white blood cell count, unspecified; F17.210 Nicotine dependence, cigarettes, uncomplicated; I25.10 Atherosclerotic heart disease of native coronary artery without angina pectoris; Z80.0 Family history of malignant neoplasm of digestive organs; Z79.2 Long term (current) use of antibiotics; Z96.619 Presence of unspecified artificial shoulder joint
CPT/HCPCS: 36415; 36569; 74177; 80048; 81001; 83605; 83735; 84100; 85025; 85610; 87086; 99284; 99406; J2185; Q9967; A4216; J2405

== ENCOUNTER 2024-09-16 08:51 | Outpatient (CLI) | payer MEDICARE, SELFPAY ==
[2024-09-16 09:23] LABS: Hemoglobin 12.7 g/dL (13.0-16.5); Mean Corp Hgb Conc 32.6 g/dL (32-36); Mean Corpuscular Hgb 26.8 pg (27.0-32.0); Mean Corpuscular Volume 82.3 fL (80-94); Mean Platelet Vol. 8.6 fl (6.2-12.0); POSITIVE COUNT YES; RBC Distribution Width CV 14.3 % (11.6-14.6); RBC Distribution Width SD 42.7 fl (35.1-43.9); Red Blood Count 4.74 M/mm3 (4.6-6.2); White Blood Count 16.6 K/mm3 (4.4-11.0)
[2024-09-16 09:35] LABS: Platelet Count 800 K/mm3 (150-450); Scan Indicated on CBC? Y/N YES- FLAGS NOTED
[2024-09-16 09:39] LABS: AST(SGOT) 17 U/L (15-37); Alanine Aminotransfer ALT/SGPT 17 U/L (16-61); Alkaline Phosphatase 104 U/L (45-117); Anion Gap 7 (5-15); BUN 14 mg/dL (7-18); Bilirubin, Direct 0.12 mg/dL (0.00-0.30); Calcium,Total 8.8 mg/dL (8.5-10.1); Chloride 104 mmol/L (98-107); Creatinine, Serum 0.74 mg/dL (0.70-1.30); EST Glomerular Filtration Rate 113 mL/min (>60); Est Glom Filt Rate - Afr Amer 137 mL/min (>60); Globulin 4.4 g/dL (2.2-4.2); Glucose 110 mg/dL (74-106); Potassium 3.9 mmol/L (3.5-5.1); Protein, Total 7.4 g/dL (6.4-8.2); Sodium Level 138 mmol/L (136-145)
[2024-09-16 10:08] LABS: Differential Comment SCANNED
[2024-09-18 08:32] LABS: Pathologist Review Reviewed
== END 2024-09-16 23:59 | disposition home or self-care (01) ==
LOC: MEDOUTP 08:51
PROVIDERS: Referring Provider Internal Medicine Infectious Disease; Visit Provider Internal Medicine Infectious Disease
DX: K65.1 Peritoneal abscess (principal)
CPT/HCPCS: 36592; 80048; 80076; 85027; A4216

== ENCOUNTER → 2024-09-16 | Outpatient (CLI) | payer MEDICARE, SELFPAY ==
--- NOTE | 2024-09-16 12:28 | CT_ITS ---
STUDY: CT ABDOMEN AND PELVIS WITH CONTRAST REASON FOR EXAM: Male, 64 years old. Perforated sigmoid diverticulitis with abscess, Assess size of -- ABSCESS RADIATION DOSAGE (If Supplied By Facility): CTDIvol = ( 10.31 ) mGy, DLP = ( 635.39 ) mGycm TECHNIQUE: Transaxial images were obtained from the dome of the diaphragm to the symphysis pubis with oral contrast. Oral and amp; IV BREEZA NEUTRAL and amp; 100mL Isovue-300 was administered. Sagittal and coronal images were reconstructed. Individualized dose optimization techniques were used for this CT. COMPARISON: Comparison is made with prior study dated September 07, 2024. FINDINGS: Calcified granuloma in the left lower lobe. The visualized portions of the heart are within normal limits. Normal liver. Normal gallbladder and extrahepatic biliary system. Normal spleen. Normal pancreas. Normal bilateral adrenal glands. Normal right kidney. Normal left kidney. Normal visualized stomach. Normal small intestine. Persistent diffuse mural thickening of the sigmoid colon with evidence of a sigmoid diverticulosis. The previously seen fluid collection has decreased in size. It has become less fluid at this time. The appendix is visualized and appears normal. There is scattered atherosclerotic calcification of the abdominal aorta, without a demonstrated aneurysm. Normal inferior vena cava. Normal retroperitoneum. Persistent thickening along the posterior aspect of the bladder wall. There are prostatic calcifications. Normal abdominal wall. There are degenerative changes of the visualized lumbar spine. CT/Abdomen/Pelvis WITH Contrast IMPRESSION: Persistent diffuse thickening of the sigmoid colon and diverticulosis. Interval decrease in size of the fluid collection. Persistent bladder wall thickening along its base. Prostatic enlargement and calcification. Electronically Signed: Brennan Gunn MD at 13:11 EST ,
== END | disposition home or self-care (01) ==
LOC: CT 12:26
PROVIDERS: Referring Provider Physician Assistant; Visit Provider Physician Assistant
DX: K57.20 Diverticulitis of large intestine with perforation and abscess without bleeding (principal)
CPT/HCPCS: 74177; Q9967; A4216

== ENCOUNTER 2024-09-23 08:48 | Outpatient (CLI) | payer MEDICARE, SELFPAY ==
[2024-09-23 09:18] LABS: Hematocrit 39.5 % (40-54); Hemoglobin 12.9 g/dL (13.0-16.5); Mean Corp Hgb Conc 32.7 g/dL (32-36); Mean Corpuscular Hgb 26.7 pg (27.0-32.0); Mean Corpuscular Volume 81.6 fL (80-94); Mean Platelet Vol. 8.3 fl (6.2-12.0); Platelet Count 715 K/mm3 (150-450); RBC Distribution Width CV 14.7 % (11.6-14.6); RBC Distribution Width SD 43.4 fl (35.1-43.9); Red Blood Count 4.84 M/mm3 (4.6-6.2); White Blood Count 13.8 K/mm3 (4.4-11.0)
[2024-09-23 09:32] LABS: AST(SGOT) 12 U/L (15-37); Alanine Aminotransfer ALT/SGPT 20 U/L (16-61); Alkaline Phosphatase 112 U/L (45-117); Anion Gap 4 (5-15); BUN 12 mg/dL (7-18); BUN/Creat Ratio 16.6 RATIO (10-20); Calcium,Total 8.9 mg/dL (8.5-10.1); Chloride 108 mmol/L (98-107); Creatinine, Serum 0.72 mg/dL (0.70-1.30); EST Glomerular Filtration Rate 116 mL/min (>60); Est Glom Filt Rate - Afr Amer 141 mL/min (>60); Globulin 4.3 g/dL (2.2-4.2); Glucose 103 mg/dL (74-106); Potassium 4.2 mmol/L (3.5-5.1); Protein, Total 7.3 g/dL (6.4-8.2); Sodium Level 139 mmol/L (136-145)
[2024-09-23 17:11] LABS: Xtra Tube EP Lab EXTRA TUBE
== END 2024-09-23 23:59 | disposition home or self-care (01) ==
LOC: MEDOUTP 08:49
PROVIDERS: Referring Provider Internal Medicine Infectious Disease; Visit Provider Internal Medicine Infectious Disease
DX: K65.1 Peritoneal abscess (principal)
CPT/HCPCS: 36592; 80048; 80076; 85027; A4216

== ENCOUNTER → 2024-10-01 | Outpatient (CLI) | payer MEDICARE, SELFPAY ==
[2024-10-01] MEDS: 0.9% Saline Lock 10 ML Syringe IV (07:56)
--- NOTE | 2024-10-01 07:59 | CT_ITS ---
STUDY: CT ABDOMEN AND PELVIS WITH CONTRAST REASON FOR EXAM: Male, 64 years old. Abscess of sigmoid colon d/t diverticulitis.DELAYS DONE DUE TO AIR IN BLADDER. NO RECENT CATHETERS PLACED RADIATION DOSAGE (If Supplied By Facility): CTDIvol = ( 12.01 ) mGy, DLP = ( 1200.88 ) mGycm TECHNIQUE: Transaxial images were obtained from the dome of the diaphragm to the symphysis pubis with oral contrast. Oral and amp;amp; IV Readi-CAT and amp;amp; 100mL Isovue-300 was administered. Sagittal and coronal images were reconstructed. Individualized dose optimization techniques were used for this CT. COMPARISON: Comparison is made with prior study dated September 16, 2024. FINDINGS: Calcified granuloma in the left lower lobe. The visualized portions of the heart are within normal limits. Normal liver. Normal gallbladder and extrahepatic biliary system. Normal spleen. Normal pancreas. Normal bilateral adrenal glands. Normal right kidney. Normal left kidney. Normal visualized stomach. Normal small intestine. There is persistent diffuse circumferential thickening of the sigmoid colon with multiple diverticula in keeping with diverticulitis. Minimal extraluminal air seen along the mesenteric side of the sigmoid colon. No significant fluid collection is seen at this time. The appendix is visualized and appears normal. There is scattered atherosclerotic calcification of the abdominal aorta, without a demonstrated aneurysm. Normal inferior vena cava. Normal retroperitoneum. Air is seen in the urinary bladder. The patient has a history of Urias catheter. Placement although not visualized at this time. With air in the bladder, a colovesical fistula should be ruled out. There is residual thickening at the base of the bladder more prominent on the left side. There are prostatic calcifications. Normal abdominal wall. Normal osseous structures. CT/Abdomen/Pelvis WITH Contrast IMPRESSION: Persistent thickening of the sigmoid colon with a tiny extraluminal air along its mesenteric side of the sigmoid colon. No fluid collection is seen at this time. Air-fluid level in the urinary bladder. The patient has a history of recent Urias catheter placement. Another differential diagnosis to consider should include a colovesical fistula. Electronically Signed: Brennan Gunn MD at 8:38 EST ,
[2024-10-01 08:07] LABS: Absolute Lymphocyte Count 4.27 X10^3/uL (0.83-4.51); Absolute Neutrophil Count 10.3 X10^3/uL (2.0-7.7); Basophil# 0.12 X10^3/uL; Basophil% 0.7 % (0-1); Eosinophil# 0.36 X10^3/uL; Hematocrit 42.9 % (40-54); Hemoglobin 13.9 g/dL (13.0-16.5); Lymphocyte # 4.27 X10^3/ul (0.83-4.51); Lymphocyte % 23.3 % (19-41); Mean Corp Hgb Conc 32.4 g/dL (32-36); Mean Corpuscular Hgb 26.3 pg (27.0-32.0); Mean Corpuscular Volume 81.1 fL (80-94); Mean Platelet Vol. 8.3 fl (6.2-12.0); Monocyte# 3.11 X10^3/uL; NRBC Flagged by Analyzer 0 % (0-5); Neutrophil # 10.28 X10^3/uL (2.7-7.7); Neutrophil % 56.1 % (47-70); POSITIVE DIFFERENTIAL YES; Platelet Count 661 K/mm3 (150-450); RBC Distribution Width CV 15.8 % (11.6-14.6); RBC Distribution Width SD 45.6 fl (35.1-43.9); Red Blood Count 5.29 M/mm3 (4.6-6.2); White Blood Count 18.3 K/mm3 (4.4-11.0)
[2024-10-01 08:12] LABS: Differential Indicated SCAN CRITERIA MET
[2024-10-01 08:17] LABS: Anion Gap 5 (5-15); BUN 16 mg/dL (7-18); BUN/Creat Ratio 19.4 RATIO (10-20); Calcium,Total 9.3 mg/dL (8.5-10.1); Chloride 105 mmol/L (98-107); Creatinine, Serum 0.82 mg/dL (0.70-1.30); EST Glomerular Filtration Rate 100 mL/min (>60); Est Glom Filt Rate - Afr Amer 121 mL/min (>60); Glucose 88 mg/dL (74-106); Sodium Level 141 mmol/L (136-145)
[2024-10-03 09:06] LABS: Pathologist Review Reviewed
== END | disposition home or self-care (01) ==
LOC: CT 07:22
PROVIDERS: Referring Provider Surgery; Visit Provider Surgery
DX: K62.1 Rectal polyp (principal)
CPT/HCPCS: 36592; 74177; 80048; 85025; Q9967

== ENCOUNTER 2024-10-10 14:18 | Outpatient (CLI) | payer MEDICARE, SELFPAY ==
[2024-10-10 16:03] LABS: Hematocrit 40.1 % (40-54); Hemoglobin 13.2 g/dL (13.0-16.5); Mean Corp Hgb Conc 32.9 g/dL (32-36); Mean Corpuscular Hgb 26.6 pg (27.0-32.0); Mean Corpuscular Volume 80.8 fL (80-94); Mean Platelet Vol. 8.8 fl (6.2-12.0); Platelet Count 524 K/mm3 (150-450); RBC Distribution Width CV 16.5 % (11.6-14.6); RBC Distribution Width SD 47.8 fl (35.1-43.9); Red Blood Count 4.96 M/mm3 (4.6-6.2); White Blood Count 17.8 K/mm3 (4.4-11.0)
[2024-10-10 16:14] LABS: AST(SGOT) 15 U/L (15-37); Alanine Aminotransfer ALT/SGPT 20 U/L (16-61); Albumin, Serum 3.3 g/dL (3.2-5.0); Alkaline Phosphatase 106 U/L (45-117); Anion Gap 9 (5-15); BUN 8 mg/dL (7-18); BUN/Creat Ratio 11.2 RATIO (10-20); Chloride 106 mmol/L (98-107); Creatinine, Serum 0.72 mg/dL (0.70-1.30); EST Glomerular Filtration Rate 117 mL/min (>60); Est Glom Filt Rate - Afr Amer 142 mL/min (>60); Globulin 4.2 g/dL (2.2-4.2); Glucose 88 mg/dL (74-106); Potassium 3.9 mmol/L (3.5-5.1); Protein, Total 7.5 g/dL (6.4-8.2); Sodium Level 139 mmol/L (136-145)
== END 2024-10-10 23:59 | disposition home or self-care (01) ==
PROVIDERS: Referring Provider Internal Medicine Infectious Disease; Visit Provider Internal Medicine Infectious Disease
DX: K62.1 Rectal polyp (principal)
CPT/HCPCS: 36592; 80048; 80076; 85027; A4216

== ENCOUNTER 2024-10-17 14:56 | Outpatient (CLI) | payer MEDICARE, SELFPAY | END 2024-10-17 23:59 | disposition home or self-care (01) | LOC: MEDOUTP 14:56 | PROVIDERS: Referring Provider Internal Medicine Infectious Disease; Visit Provider Internal Medicine Infectious Disease | DX: K62.1 Rectal polyp (principal) ==